=== PATIENT | female | born 1990 | race Caucasian/White ===

== ENCOUNTER 2017-12-28 20:55 | Emergency (ER) | payer SELFPAY ==
[2017-12-28 20:56] VITALS: BP 131/80; PULSE 107; RESP 16; TEMP 36.4; O2SAT 98; BMI 39.6
== END 2017-12-28 21:25 | disposition left against medical advice (07) ==
LOC: ED 21:21
PROVIDERS: Emergency Provider Emergency Medicine
DX: R69 Illness, unspecified (principal)

== ENCOUNTER → 2020-11-07 11:19 | Outpatient (CLI) | payer OTHER, MEDICAID, SELFPAY ==
[2020-11-07 10:44] VITALS: BMI 39.6
[2020-11-07 12:37] LABS: Absolute Lymphocyte Count 1.66 X10^3/uL (0.83-4.51); Absolute Neutrophil Count 3.8 X10^3/uL (2.0-7.7); Basophil# 0.05 X10^3/uL; Basophil% 0.8 % (0-1); Eosinophil# 0.14 X10^3/uL; Eosinophils% 2.3 % (0-5); Hematocrit 43.7 % (37-47); Hemoglobin 14.4 g/dL (12.0-15.0); Lymphocyte # 1.66 X10^3/ul (0.83-4.51); Lymphocyte % 27.5 % (19-41); Mean Corpuscular Volume 106.3 fL (81-99); Mean Platelet Vol. 9.7 fl (6.2-12.0); Monocyte% 6.6 % (0-10); NRBC Flagged by Analyzer 0 % (0-5); Neutrophil # 3.77 X10^3/uL (2.7-7.7); Neutrophil % 62.5 % (47-70); Platelet Count 231 K/mm3 (150-450); RBC Distribution Width CV 12.4 % (11.6-14.6); RBC Distribution Width SD 48.9 fl (35.1-43.9); Red Blood Count 4.11 M/mm3 (4.2-5.4)
[2020-11-07 12:49] LABS: Hemoglobin A1c 6.1 % (3.8-5.6)
[2020-11-07 12:53] LABS: Vitamin B12 339 pg/mL (211-911)
[2020-11-07 13:42] LABS: ALB/GLOB Ratio 0.8 RATIO (0.9-2.4); AST(SGOT) 33 U/L (15-37); Alanine Aminotransfer ALT/SGPT 69 U/L (13-56); Albumin, Serum 3.5 g/dL (3.2-5.0); Alkaline Phosphatase 74 U/L (45-117); Anion Gap 6 (5-15); BUN 14 mg/dL (7-18); BUN/Creat Ratio 14.7 RATIO (10-20); Calcium,Total 8.9 mg/dL (8.5-10.1); Chloride 106 mmol/L (98-107); Cholesterol 188 mg/dL (200); Creatinine, Serum 0.95 mg/dL (0.55-1.02); EST Glomerular Filtration Rate 72 mL/min (>60); Est Glom Filt Rate - Afr Amer 87 mL/min (>60); Ferritin 148 ng/mL (8-252); Globulin 4.2 g/dL (2.2-4.2); Glucose 128 mg/dL (74-106); High Density Lipoprotein 48 mg/dL; Potassium 3.7 mmol/L (3.5-5.1); Protein, Total 7.7 g/dL (6.4-8.2); Sodium Level 138 mmol/L (136-145); T4 Free Direct 0.88 ng/dL (0.76-1.46); Thyroid Stim Hormone (TSH) 2.83 uIU/mL (0.358-3.74); Triglycerides 132 mg/dL; Very Low Density Lipoprotein 26 mg/dL (5-40)
[2020-11-08 07:27] LABS: Thyroid Peroxidase AB < 9 IU/mL (0-34)
== END ==
PROVIDERS: Referring Provider Internal Medicine Endocrinology, Diabetes & Metabolism; Visit Provider Internal Medicine Endocrinology, Diabetes & Metabolism
DX: E04.9 Nontoxic goiter, unspecified (principal); R20.2 Paresthesia of skin; Z86.2 Personal history of diseases of the blood and blood-forming organs and certain disorders involving the immune mechanism; Z86.32 Personal history of gestational diabetes
CPT/HCPCS: 36415; 80053; 80061; 82607; 82728; 83036; 84439; 84443; 85025; 86376

== ENCOUNTER 2023-05-06 22:07 | Emergency (ER) | payer SELFPAY ==
[2023-05-06 22:07] VITALS: BP 156/101; PULSE 111; RESP 18; TEMP 36.4; O2SAT 96; BMI 46.5
--- NOTE | 2023-05-06 22:26 | EDS_ITS ---
HPI HPI - GI History of Present Illness Chief Complaint: Abd Pain Informant: patient Narrative Narrative: 32-year-old female has had left upper quadrant pain radiating across her mid abdomen for the last couple days, this was the initial symptoms started gradually, followed by fevers up to 104, nausea, vomiting without bilious emesis or blood, and diarrhea but the vomiting has been worse. She thought she had stomach flu but then the pain became intense tonight, radiating into her low back but nonlateralizing. No urinary symptoms. No history of any abdominal surgeries. She states when she eats something it makes the pain more intense and then she has diarrhea and that everything seems to lessen. Right now things are less and the back is not bothering her currently. Has been urinating less, not more. No travel out of the region recently, no known sick contacts. [facility] Medical History Diabetes GERD (gastroesophageal reflux disease) Goiter High blood pressure History of anemia History of gestational diabetes IBS (irritable bowel syndrome) Metabolic syndrome Paresthesia PCOS (polycystic ovarian syndrome) Polycystic disease, ovaries Preeclampsia UTI (urinary tract infection) Home Medications Ranitidine [Zantac] 150 mg PO DAILY 10/13/16 [History Last Taken 10/17/16 20:00] calcium carbonate 500 mg calcium (1,250 mg) chewable tablet 500 mg PO BID 10/13/16 [History Last Taken 10/16/16] vits,calcium no.78-iron fumarate-folic acid 29 mg-1 mg tablet (Prenatabs FA) 1 tab PO DAILY 10/13/16 [History Last Taken 10/18/16] acetaminophen 500 mg tablet 500 - 1,000 mg PO Q6H PRN PRN Mild Pain (1-3) 10/14/16 [History Last Taken 10/17/16] Ibuprofen [Motrin] 800 mg PO TID PRN PRN Pain #30 tabs 10/21/16 [Rx Last Taken Unknown] labetalol 100 mg tablet 100 mg PO TID ##30 10/21/16 [Rx Last Taken Unknown] probio 5 PO 11/07/20 [History Last Taken Unknown] x factor vitamin PO 11/07/20 [History Last Taken Unknown] ondansetron 4 mg disintegrating tablet 8 mg (2 x 4 mg) PO Q8H PRN PRN Nausea #20 tabs 05/06/23 [Rx Last Taken Unknown] Allergy/AdvReac Type Severity Reaction Status Date / Time No Known Allergies Allergy Verified 05/06/23 22:07 Family History Other Autoimmune disease Cancer Graves disease Hypertension Thyroid disorder Social History Smoking Status: Never smoker alcohol intake: current alcohol intake frequency: a few times a week substance use type: does not use frequency: 1-2 times per week ROS ROS ED Constitutional Constitutional ED: Reports chills, fever(s) and malaise Eyes Eyes: Denies change in vision or diplopia ENT ENT ED: Denies rhinorrhea or sore throat Cardiovascular Cardiovascular: Denies chest pain or palpitations Respiratory/Chest Respiratory/Chest: Denies cough or dyspnea Gastrointestinal Gastrointestinal: Reports abdominal pain, diarrhea, nausea and vomiting; Denies hematemesis, hematochezia or melena Genitourinary Genitourinary ED: Denies dysuria, hematuria or urinary frequency Musculoskeletal Musculoskeletal: Reports back pain; Denies neck pain Integumentary Denies abscess or rash Neurologic Neurologic: Denies headache(s), paresthesias or weakness Psychiatric Psychiatric: Denies anxiety or suicidal thoughts EXAM Physical Exam Const Vital Signs: 05/06/23 22:07 Temperature 97.6 F L Temperature Source Temporal Pulse Rate 111 H Respiratory Rate 18 Blood Pressure 156/101 H Blood Pressure Mean 119 Pulse Ox 96 Positive well nourished, well developed and obese General Appearance ED: well developed and NAD Nutritional Appearance: obese HEENT Reports moist mucous membranes normocephalic and atraumatic Eyes PERRL and EOMs intact bilaterally Neck full ROM and supple Resp normal respiratory effort and clear to auscultation bilaterally Cardio regular rate, regular rhythm and no murmurs Rate: tachycardic GI non-distended GI Narrative: LUQ ttp, no guarding or rebound, otherwise abdomen benign Auscultation: normoactive bowel sounds Palpation: soft Back/Spine no CVA tenderness General Back: other FROM Extremity normal to inspection General Extremety ED: Negative for edema, pulses abnormal or tenderness General Extremity: Negative for edema or pulses abnormal Neuro oriented x3, CN's II-XII intact bilaterally and no sensory deficits noted Sensorium / Orientation: awake and alert Motor Exam: strength 5/5 throughout Skin no rashes or lesions noted and no wounds MDM MDM MDM Narrative Medical decision making narrative: Most likely has viral gastroenteritis, however other causes of left flank pain are in the differential diagnosis such as kidney stone, pyelonephritis although she does not have symptoms of urine infection nor CVA tenderness making this less likely, and abdominal myofascial strain causing the unilateral worse pain in the left. Stomach ulcer also in the differential. She has no symptoms of bleeding. Work-up is consistent with the absence of hemorrhage, and is negative ruling out ectopic . Her urine shows a trace of blood, negative for infection on my interpretation, positive for ketones indicating starvation ketosis. After IV fluids, Zofran, dicyclomine, and Maalox she is feeling better with regards to abdominal cramping which was diffuse, nausea, she still has the pain on the left side. I will give her Toradol I do not think she needs a CT scan at this time, and she is comfortable with getting that and discharge instructions with a prescription for Zofran and follow-up as needed. We discussed reasons to return. Lab Data Attestation: I reviewed the patient's lab results. Labs: Laboratory Results - last 24 hr 05/06/23 05/06/23 22:40 22:55 WBC 9.2 RBC 4.01 L Hgb 14.8 Hct 42.5 MCV 106.0 H MCH 36.9 H MCHC 34.8 RDW Std Deviation 48.4 H RDW Coeff of Deyvi 12.3 Plt Count 167 MPV 9.6 Immature Gran % (Auto) 0.200 Neut % (Auto) 87.3 H Lymph % (Auto) 5.5 L Morton % (Auto) 6.7 Eos % (Auto) 0.0 Baso % (Auto) 0.3 Absolute Neuts (auto) 8.0 H Absolute Lymphs (auto) 0.51 L Nucleated RBC % 0 Differential Comment SCANNED Sodium 131 L Potassium 3.6 Chloride 104 Carbon Dioxide 23.0 Anion Gap 4 L BUN 12 Creatinine 0.90 Estim Creat Clear Calc 79.25 Est GFR (MDRD) Af Amer 92 Est GFR (MDRD) Non-Af 76 BUN/Creatinine Ratio 13.3 Glucose 133 H Calcium 8.6 Serum , Qual NEGATIVE Urine Color Yellow Urine Clarity Clear Urine pH 5.0 Ur Specific Jud 1.020 Urine Protein 30 H Urine Glucose (UA) Normal Urine Ketones 150 A* Urine Occult Blood 10 H Urine Nitrite Negative Urine Bilirubin 1 H Urine Urobilinogen 1 H Ur Leukocyte Esterase 25 H Urine RBC 0-5 SEEN Urine WBC 0 SEEN Ur Squamous Epith Cells 10-25 SEEN Urine Bacteria 0 SEEN Urine Mucus 1+ Discharge Plan Triage Chief Complaint: Abd Pain ED Provider: Wily Domingo Dx/Rx/DC Orders Clinical Impression: Left upper quadrant abdominal pain, Gastroenteritis Instructions: Abdominal Pain, ED Gastroenteritis, Viral (Adult) Prescriptions: New ondansetron [ondansetron] 4 mg tablet,disintegrating 8 mg PO Q8H PRN PRN (Reason: Nausea) Qty: 20 0RF No Action x factor vitamin PO probio 5 PO calcium carbonate 500 MG tablet,chewable 500 mg PO BID vit,[id number] [Prenatabs FA] 1 TABLET tablet 1 tab PO DAILY Ranitidine [Zantac] 150 MG tablet 150 mg PO DAILY acetaminophen 500 MG tablet 500 - 1,000 mg PO Q6H PRN PRN (Reason: Mild Pain (-09/17)) Ibuprofen [Motrin] 800 MG tablet 800 mg PO TID PRN PRN (Reason: Pain) Qty: 30 0RF Rx Instructions: labetalol 100 MG tablet 100 mg PO TID Qty: 30 0RF Primary Care Provider: Care Physician,No Primary Referrals: Care Physician,No Primary [Primary Care Provider] - Doctor,Your [Non-Staff] - 3-5 Days if not improving Disposition Disposition: Home, Self Care
[2023-05-06] MEDS: 0.9% Normal Saline (1000mL) 1,000 ML 1000 ML IV (22:50)
[2023-05-06] MEDS: Ondansetron 4 MG/2 ML Vial IV (22:50)
[2023-05-06] MEDS: Mag Hydrox/Al Hydrox/Simeth 30 ML UDC PO (22:51)
[2023-05-06] MEDS: Dicyclomine 10 MG Capsule 20 MG PO (22:52)
[2023-05-06 22:59] LABS: Absolute Lymphocyte Count 0.51 X10^3/uL (0.83-4.51); Basophil# 0.03 X10^3/uL; Basophil% 0.3 % (0-1); Hematocrit 42.5 % (37-47); Hemoglobin 14.8 g/dL (12.0-15.0); Lymphocyte # 0.51 X10^3/ul (0.83-4.51); Lymphocyte % 5.5 % (19-41); Mean Corp Hgb Conc 34.8 g/dL (32-36); Mean Corpuscular Hgb 36.9 pg (27.0-32.0); Mean Platelet Vol. 9.6 fl (6.2-12.0); Monocyte# 0.62 X10^3/uL; Monocyte% 6.7 % (0-10); NRBC Flagged by Analyzer 0 % (0-5); Neutrophil # 8.01 X10^3/uL (2.7-7.7); Neutrophil % 87.3 % (47-70); POSITIVE DIFFERENTIAL YES; Platelet Count 167 K/mm3 (150-450); RBC Distribution Width CV 12.3 % (11.6-14.6); RBC Distribution Width SD 48.4 fl (35.1-43.9); Red Blood Count 4.01 M/mm3 (4.2-5.4); White Blood Count 9.2 K/mm3 (4.4-11.0)
[2023-05-06 23:04] LABS: Bacteria 0 SEEN /hpf (None Seen); White Blood Cells 0 SEEN /hpf (0-5)
[2023-05-06 23:14] LABS: Differential Indicated SCAN CRITERIA MET
[2023-05-06 23:15] LABS: Internal QC Validated? YES +Cl - CLEAR BKGD; Pregnancy, Serum, hCG Quali. NEGATIVE Negative
[2023-05-06 23:16] LABS: Color, Urine Yellow (Yellow); Glucose, Dipstick Normal (Normal); Leukocyte Esterase-Dipstick 25 /ul (Negative); Nitrite-Dipstick Negative (Negative); Occult Blood-Urine 10 /ul (Negative); Protein-Dipstick 30 mg/dl (Negative); Urine Clarity Clear (Clear); Urine Urobilinogen 1 mg/dl (Normal)
[2023-05-06 23:17] LABS: Anion Gap 4 (5-15); BUN 12 mg/dL (7-18); BUN/Creat Ratio 13.3 RATIO (10-20); Calcium,Total 8.6 mg/dL (8.5-10.1); Chloride 104 mmol/L (98-107); EST Glomerular Filtration Rate 76 mL/min (>60); Est Glom Filt Rate - Afr Amer 92 mL/min (>60); Estimated Creatinine Clearance 79.25 ml/min; Glucose 133 mg/dL (74-106); Potassium 3.6 mmol/L (3.5-5.1); Sodium Level 131 mmol/L (136-145)
[2023-05-06 23:21] LABS: Differential Comment SCANNED
[2023-05-06 23:22] LABS: Ketone-Dipstick 150 mg/dl (Negative); Urine Bilirubin Dipstick 1 mg/dL (Negative)
[2023-05-06 23:23] LABS: Squamous Epithelial Cells - UA 10-25 SEEN /hpf (5-10)
[2023-05-06 23:24] LABS: Mucous, Urine 1+ /hpf (<or=2+); Red Blood Cells-Urine 0-5 SEEN /hpf (0-5)
[2023-05-06] MEDS: Ketorolac 30 MG/ML Syringe IV (23:51)
== END 2023-05-07 00:08 | disposition home or self-care (01) ==
PROVIDERS: Emergency Provider Emergency Medicine; Visit Provider Emergency Medicine
DX: R10.12 Left upper quadrant pain (principal); K52.9 Noninfective gastroenteritis and colitis, unspecified
CPT/HCPCS: 80048; 81001; 84703; 85025; 96361; 96374; 96375; 99283; J2405

== ENCOUNTER 2023-05-11 01:04 | Emergency (ER) | payer MEDICAID, SELFPAY ==
[2023-05-11 01:05] VITALS: BP 142/90; PULSE 115; RESP 20; TEMP 36.5; O2SAT 94; BMI 46.5
--- NOTE | 2023-05-11 01:26 | CT_ITS ---
EXAM: CT Abdomen And Pelvis W/ Contrast Injection HISTORY: left sided abd pain TECHNIQUE: Routine protocol CT abdomen pelvis. IV Contrast: IV 100mL Isovue-370 . Oral Contrast: without. Sagittal and coronal images were reconstructed. RADIATION DOSAGE (If Supplied By Facility): CTDIvol = ( 22.07 ) mGy, DLP = ( 1393.34 ) mGycm Individualized dose optimization techniques were used for this CT. COMPARISON: None. LIMITATIONS: None. FINDINGS: LOWER CHEST: Dependent atelectasis in the lung bases greater on the left. Calcified granuloma left lower lobe. Pneumomediastinum with small amount of air about the distal esophagus and pericardial. LIVER: Enlarged with fatty infiltration. GALLBLADDER/BILE DUCTS: Gallstone in the gallbladder. PANCREAS: Unremarkable. SPLEEN: Unremarkable. ADRENAL GLANDS: Unremarkable. KIDNEYS / URETERS: Unremarkable. BOWEL / MESENTERY: Wall thickening of the sigmoid colon with adjacent stranding, and numerous small foci of adjacent extraluminal air. No localized collection or abscess. Moderate amount of free air in the upper abdomen mainly about the stomach, with no associated inflammatory changes or definite gastric wall thickening in the region. Mildly dilated small bowel in the left midabdomen with prominent folds. No bowel obstruction. APPENDIX: Not identified. PERITONEUM: Moderate amount of free air with numerous small foci about the sigmoid colon, and free air in the upper abdomen adjacent to the stomach, and along the left paracolic gutter. No free fluid. VESSELS: Abdominal aorta is normal caliber. RETROPERITONEUM: Pneumonia retroperitoneum with air along the left psoas muscle, left anterior and posterior pararenal space. REPRODUCTIVE ORGANS: Intrauterine device in place within the uterus. BLADDER: Minimally distended. ABDOMINAL WALL: Small umbilical hernia contains only fat, no bowel. BONES: No acute abnormality. OTHER: None. CT/Abdomen/Pelvis W IV Cont ONLY IMPRESSION: Pneumoperitoneum and pneumoretroperitoneum with most likely site of perforation sigmoid colon suspected diverticulitis. Small amount of pneumomediastinum secondary tracking from the abdomen. Mildly dilated small bowel in the left abdomen likely focal ileus. Cholelithiasis. Hepatomegaly with steatosis. N.B. : The above Results were Read Back by Bety Ferreira MD to Rob Hall MD, and understanding confirmed on 05/11/2023 02:42:00 (ET). Electronically Signed: Bety Ferreira MD at 2:42 EDT ,
--- NOTE | 2023-05-11 01:27 | EDS_ITS ---
HPI HPI - GI History of Present Illness Chief Complaint: Abd Pain Detail of Chief Complaint: Left-sided abdominal pain since last Tuesday. Informant: patient Abdominal Pain/Flank Pain Onset: Days Context: Gradual Onset Timing: Continuous Location: Left Flank Current Severity: Moderate Maximum Severity: Moderate Worsened by: Car ride Relieved by: Nothing Nausea/Vomiting/Emesis GI Symptom: Positive for Nausea Severity: Mild Diarrhea/Melena/Hematochezia GI Symptom: Positive for Diarrhea and - (Started with diarrhea now constipated with no BM for the last 4 days.) Onset: Days Stool Quality: Positive for Loose Severity: Mild Associated Symptoms Associated Symptoms: Negative for Dysuria, Frequency, Hematuria or Urgency Narrative Narrative: 32-year-old female history of diabetes, reflux, anemia irritable bowel and polycystic ovarian syndrome. Denies any prior abdominal surgeries. She was seen in emergency department on 1026 and had negative labs and urinalysis at that time. test was negative. States he had left-sided abdominal pain since that time. Associated nausea. Initially had diarrhea and now she has had no bowel movement since Tuesday. Says she has had fevers that were as high as 104 but they have resolved in the last 24 to 36 hours. Denies any dysuria. No vaginal bleeding or discharge. No abdominal trauma. No history of kidney stone. Prior similar symptoms: No Recent Illness/Hospitalization: No PFSH PFSH Medical History Diabetes GERD (gastroesophageal reflux disease) Goiter High blood pressure History of anemia History of gestational diabetes IBS (irritable bowel syndrome) Insulin resistance Metabolic syndrome Paresthesia PCOS (polycystic ovarian syndrome) Polycystic disease, ovaries Preeclampsia UTI (urinary tract infection) Home Medications acetaminophen 500 mg tablet 500 - 1,000 mg PO Q6H PRN PRN Mild Pain (1-3/) 10/14/16 [History Last Taken 10/17/16] Ibuprofen [Motrin] 800 mg PO TID PRN PRN Pain #30 tabs 10/21/16 [Rx Last Taken Unknown] ondansetron 4 mg disintegrating tablet 8 mg (2 x 4 mg) PO Q8H PRN PRN Nausea #20 tabs 05/06/23 [Rx Last Taken Unknown] Allergy/AdvReac Type Severity Reaction Status Date / Time No Known Allergies Allergy Verified 05/11/23 01:15 Family History Other Autoimmune disease Cancer Graves disease Hypertension Thyroid disorder Social History Smoking Status: Current some day smoker tobacco type: cigarettes alcohol intake: current alcohol intake frequency: a few times a week substance use type: does not use frequency: 1-2 times per week ROS ROS ED ROS Narrative Nausea. Diarrhea now constipation. Fever. No dysuria. Review of Systems ROS Unobtainable: Denies due to encephalopathy Constitutional Constitutional ED: Reports fever(s); Denies chills ENT ENT ED: Denies ear pain Cardiovascular Cardiovascular: Denies chest pain Respiratory/Chest Respiratory/Chest: Denies cough Gastrointestinal Gastrointestinal: Reports abdominal pain, constipation, diarrhea and nausea; Denies melena or vomiting Genitourinary Genitourinary ED: Denies dysuria or hematuria Musculoskeletal Musculoskeletal: Denies arthralgias Integumentary Denies abscess Neurologic Neurologic: Denies headache(s) Psychiatric Psychiatric: Denies anxiety Endocrine Endocrinology: Denies polydipsia Hematologic/Lymphatic Hematologic/Lymphatic: Denies easy bleeding Allergic/Immunologic Allergic/Immunologic ED: Denies mouth swelling, tongue swelling or urticaria EXAM Physical Exam Narrative Exam Narrative: Well-appearing 32-year-old female. Vital signs are stable afebrile. She does not look septic toxic. She is in no distress. Family member present in room. H EENT exam unremarkable except dry mucous membranes. Neck nontender no lymphadenopathy. Lungs clear to auscultation. Heart regular rhythm rate about 110 no murmur. Abdomen soft, nondistended normal bowel sounds no peritoneal signs. Tender in left upper and lower quadrants. No hernia or mass. No signs of trauma. Right upper right lower quadrant unremarkable. Back nontender. No CVA tenderness. Moving all 4 extremities. Nontender no edema. Neurologically she is awake and alert with no focal motor deficits. Const Vital Signs: 05/11/23 01:05 05/11/23 03:54 05/11/23 04:20 Temperature 97.7 F L Temperature Source Oral Pulse Rate 115 H 113 H Respiratory Rate 20 H 22 H Blood Pressure 142/90 H 118/78 Blood Pressure Mean 107 91 Pulse Ox 94 95 89 Oxygen Delivery Method Room Air Room Air Room Air Oxygen Flow Rate (L/min) 2 Positive well nourished and well developed; Negative for cachectic, contractures or unkempt General Appearance ED: well developed and NAD; Negative for unkempt, cachectic, contractures or pallor Nutritional Appearance: Negative for cachectic HEENT Reports dry mucous membranes; Denies moist mucous membranes normocephalic and atraumatic; Negative for trauma or tenderness Mouth ED: Yes dry mucous membranes Mouth: dry mucous membranes Eyes PERRL and EOMs intact bilaterally General Eye ED: Negative for pale conjunctiva or scleral icterus Neck no lymphadenopathy, supple and no JVD General: Negative for tenderness Carotids: Negative for other Lymph Lymphatic: Negative for other Resp normal respiratory effort and clear to auscultation bilaterally Effort and Inspection: Negative for respiratory distress Auscultation: Negative for rales, rhonchi or wheezes Cardio regular rhythm, S1 normal heart sound, S2 normal heart sound and no murmurs; Negative for regular rate Rate: tachycardic; Negative for bradycardia Rhythm: Negative for abnormal rhythm GI non-distended and no masses; Negative for non-tender Inspection: Negative for abdominal distention Auscultation: normoactive bowel sounds Palpation: soft and tender; Negative for guarding, rigid, hepatomegaly, splenomegaly, hernia, mass, pulsatile mass or rebound tenderness present Back/Spine no CVA tenderness General Back: Negative for CVA tenderness Cervical Spine: Negative for cervical spine tenderness Thoracic Spine / Upper Back: Negative for thoracic spinal tenderness Lumbar Spine / Lower Back: Negative for lumbar spinal tenderness Coccyx: Negative for other Extremity full ROM General Extremety ED: Negative for edema or tenderness General Extremity: Negative for edema Neuro CN's II-XII intact bilaterally and moves all extremities Sensorium / Orientation: alert, oriented to person, oriented to place and oriented to time; Negative for orientation impaired, confused or lethargic Motor Exam: strength 5/5 throughout Psych mental status grossly normal and thought process normal Appearance: Negative for unkempt Attitude: No agitated Mood & Affect: Negative for depressed, anxious or tearful Skin no wounds General Skin Exam: Negative for jaundice or pallor Lesions: no lesions Rashes: no rashes Trauma: Negative for abrasion Nails: Negative for discolored MDM MDM MDM Narrative Medical decision making narrative: 32-year-old female left-sided abdominal pain. Recent labs were unremarkable. This could be from irritable bowel. Could be from constipation. Diverticulitis a possibility. UTI or kidney stone a possibility of her last urinalysis several days ago was negative. Recent negative test. CAT scan labs being obtained. Treated with IV fluids for dehydration. Times a liter. Morphine for pain and Zofran for nausea. Repeat exam at 2:30 AM patient is feeling improved with the IV pain medication. We went over her test results and the CAT scan showing free air which I suspect is secondary to diverticulitis. General surgery is on page. Radiologist did just call me at 2:40 AM and she agrees there is free air both pneumo and retroperitoneum. Inflammation of the sigmoid colon consistent with a sigmoid diverticulitis perforation. I have written for the patient to be started on IV Zosyn. Also a second IV and a second liter of fluid due to her acute kidney injury. I spoke to our general surgeon on-call. She reviewed patient's CAT scan and was concerned that this may need colorectal specialist. Thought it was in the patient's best interest to be transferred to a larger facility. We attempted both hospitals in [place] they are currently full and do not have any bed availability. Then spoke to [facility] and one of the colon rectal specialist. They will accept the patient to the surgical intensive care unit. We are awaiting a bed. Patient is doing well at this time. She has received a second dose of morphine and Zofran. And her and her are comfortable with the current plan. Patient doing well at 4:30 AM. Clinic is excepted patient has a bed in the s urgical intensive care unit. We are awaiting ground transport which may take another 2 to 3 hours. History & Record Review Discussion w/independent historian: Patient Additional record(s) reviewed:: Prior inpatient record, Prior outpatient record, Prior ED visit and Prior labs Lab Data Attestation: I reviewed the patient's lab results. Lab results narrative: CBC shows elevated white count of 13.7. H&H of 15.1 and 43. Platelets iron 36,000. 7% bands. Electrolytes show sodium 133. Potassium 3.2. Elevated anion gap 17. BUN and creatinine of 58 and 3.94 consistent with acute kidney injury and dehydration. Glucose 133. Liver enzymes showed alk phos of 173 otherwise unremarkable lipase is normal at 35. Labs: Laboratory Results - last 24 hr 05/11/23 01:16 WBC 13.7 H RBC 4.15 L Hgb 15.1 H Hct 43.4 MCV 104.6 H MCH 36.4 H MCHC 34.8 RDW Std Deviation 50.0 H RDW Coeff of Deyvi 13.0 Plt Count 136 L MPV 10.6 Neut % (Auto) Not Reportable Absolute Neuts (auto) 12.5 H Absolute Lymphs (auto) 0.27 L Total Counted 100 Neutrophils % (Manual) 84 H Band Neutrophils % 7 H Lymphocytes % (Manual) 2 L Monocytes % (Manual) 2 Eosinophils % (Manual) 1 Myelocytes % 4 H Diff Path Review May foll Platelet Estimate SLT DEC Macrocytosis 1+ Sodium 133 L Potassium 3.2 L Chloride 100 Carbon Dioxide 16.0 L Anion Gap 17 H BUN 58 H Creatinine 3.94 H Estim Creat Clear Calc 18.10 Est GFR (MDRD) Af Amer 17 L Est GFR (MDRD) Non-Af 14 L BUN/Creatinine Ratio 14.7 Glucose 133 H Calcium 8.8 Total Bilirubin 0.80 AST 76 H ALT 46 Alkaline Phosphatase 173 H Total Protein 7.0 Albumin 1.9 L Globulin 5.1 H Albumin/Globulin Ratio 0.4 L Lipase 35 Radiography Diagnostic Testing: Clinical Impression(s) from Imaging Studies Abdomen/Pelvis CT 05/11/23 01:26 IMPRESSION: Pneumoperitoneum and pneumoretroperitoneum with most likely site of perforation sigmoid colon suspected diverticulitis. Small amount of pneumomediastinum secondary tracking from the abdomen. Mildly dilated small bowel in the left abdomen likely focal ileus. Cholelithiasis. Hepatomegaly with steatosis. N.B. : The above Results were Read Back by Bety Ferreira MD to Rob Hall MD, and understanding confirmed on 05/11/2023 02:42:00 (ET). Electronically Signed: Bety Ferreira MD at 2:42 EDT , ADDENDUM: 05/11/23 0249 IMPRESSION: Pneumoperitoneum and pneumoretroperitoneum with most likely site of perforation sigmoid colon suspected diverticulitis. Small amount of pneumomediastinum secondary tracking from the abdomen. Mildly dilated small bowel in the left abdomen likely focal ileus. Cholelithiasis. Hepatomegaly with steatosis. N.B. : The above Results were Read Back by Bety Ferreira MD to Rob Hall MD, and understanding confirmed on 05/11/2023 02:42:00 (ET). Electronically Signed: Bety Ferreira MD at 2:42 EDT , Critical Care Time Critical Care Time: Yes Critical care time (excluding procedures): 30-74 minutes, Including time spent:, Discussing w/Patient &/or Family/Director Trial, Discussing w/Consultants, Arranging Admission or Transfer, Performing Direct Patient Care at Bedside and - (35 min) Discharge Plan Triage Chief Complaint: Abd Pain ED Provider: Rob Hall Dx/Rx/DC Orders Clinical Impression: Abdominal pain, Acute kidney injury, Acute dehydration, Perforated bowel, Leukocytosis, History of diabetes mellitus, Perforation of sigmoid colon due to diverticulitis, Metabolic acidosis Prescriptions: No Action acetaminophen 500 MG tablet 500 - 1,000 mg PO Q6H PRN PRN (Reason: Mild Pain (1-3/10)) Ibuprofen [Motrin] 800 MG tablet 800 mg PO TID PRN PRN (Reason: Pain) Qty: 30 0RF Rx Instructions: ondansetron [ondansetron] 4 mg tablet,disintegrating 8 mg PO Q8H PRN PRN (Reason: Nausea) Qty: 20 0RF Primary Care Provider: Care Physician,No Primary Referrals: Care Physician,No Primary [Primary Care Provider] - Disposition Disposition: [facility]
[2023-05-11 01:32] LABS: Hematocrit 43.4 % (37-47); Hemoglobin 15.1 g/dL (12.0-15.0); Mean Corp Hgb Conc 34.8 g/dL (32-36); Mean Corpuscular Hgb 36.4 pg (27.0-32.0); Mean Corpuscular Volume 104.6 fL (81-99); Mean Platelet Vol. 10.6 fl (6.2-12.0); POSITIVE COUNT YES; POSITIVE MORPHOLOGY YES; Platelet Count 136 K/mm3 (150-450); Red Blood Count 4.15 M/mm3 (4.2-5.4); White Blood Count 13.7 K/mm3 (4.4-11.0)
[2023-05-11 01:35] LABS: Differential Indicated MANUAL DIFF
[2023-05-11 01:44] LABS: Macrocytosis 1+; Platelet Estimate SLT DEC (ADEQ)
[2023-05-11] MEDS: 0.9% Normal Saline (1000mL) 1,000 ML 1000 ML IV (01:54)
[2023-05-11] MEDS: Ondansetron 4 MG/2 ML Vial IV ×2 (01:55→04:16)
[2023-05-11] MEDS: Morphine 4 MG/ML Syringe IV (01:55)
[2023-05-11 02:02] LABS: Absolute Lymphocyte Count 0.27 X10^3/uL (0.83-4.51); Absolute Neutrophil Count 12.5 X10^3/uL (2.0-7.7); Eosinophil 1 % (0-5); Lymphocyte 2 % (19-41); Monocyte 2 % (0-10); Myelocyte 4 % (0-0); Neutrophil-Band 7 % (0-5); Neutrophil-Segmented 84 % (47-70); Total Cells Counted 100 (MANUAL DIFF)
[2023-05-11 02:07] LABS: ALB/GLOB Ratio 0.4 RATIO (0.9-2.4); AST(SGOT) 76 U/L (15-37); Alanine Aminotransfer ALT/SGPT 46 U/L (13-56); Albumin, Serum 1.9 g/dL (3.2-5.0); Alkaline Phosphatase 173 U/L (45-117); Anion Gap 17 (5-15); BUN 58 mg/dL (7-18); BUN/Creat Ratio 14.7 RATIO (10-20); Calcium,Total 8.8 mg/dL (8.5-10.1); Chloride 100 mmol/L (98-107); Creatinine, Serum 3.94 mg/dL (0.55-1.02); EST Glomerular Filtration Rate 14 mL/min (>60); Est Glom Filt Rate - Afr Amer 17 mL/min (>60); Globulin 5.1 g/dL (2.2-4.2); Glucose 133 mg/dL (74-106); Lipase 35 U/L (13-75); Potassium 3.2 mmol/L (3.5-5.1); Sodium Level 133 mmol/L (136-145)
[2023-05-11] MEDS: 0.9% Normal Saline (1000mL) 1,000 ML 999 ML IV (02:44)
[2023-05-11] MEDS: Piperacil/Tazobactam 4.5 GM in 0.9% Normal Saline (100mL MB+) 100 ML IV (02:45)
--- NOTE | 2023-05-11 03:01 | ED.RN ---
[facility] called for transfer they are wait listing patients
--- NOTE | 2023-05-11 03:01 | ED.RN ---
[facility] called they are wait listing patients
--- NOTE | 2023-05-11 03:01 | ED.RN ---
[facility] called for transfer at this time. They will call back
[2023-05-11 03:54] VITALS: BP 118/78; PULSE 113; RESP 22; O2SAT 95
[2023-05-11] MEDS: morphine 8 MG/ML Syringe 6 MG IV (04:01)
[2023-05-11 04:20] VITALS: O2SAT 89
[2023-05-11 06:07] VITALS: BP 112/72; PULSE 107; RESP 18; O2SAT 95
[2023-05-11 06:11] VITALS: BP 112/72; PULSE 107; RESP 18; O2SAT 95
[2023-05-11 13:42] LABS: Pathologist Review Reviewed
== END 2023-05-11 07:07 | disposition short-term general hospital (02) ==
PROVIDERS: Emergency Provider Emergency Medicine; Visit Provider Emergency Medicine
DX: R10.9 Unspecified abdominal pain (principal); N17.9 Acute kidney failure, unspecified; E11.9 Type 2 diabetes mellitus without complications; E86.0 Dehydration; K57.20 Diverticulitis of large intestine with perforation and abscess without bleeding; D72.829 Elevated white blood cell count, unspecified; E87.20 Acidosis, unspecified; F17.210 Nicotine dependence, cigarettes, uncomplicated
CPT/HCPCS: 74177; 80053; 83690; 85025; 96361; 96365; 96375; 96376; 99284; J7030; Q9967; A4216; J2405

== ENCOUNTER → 2023-07-12 | Outpatient (CLI) | payer MEDICAID, SELFPAY ==
--- NOTE | 2023-07-12 13:33 | VDLE_ITS ---
Reason For Study: RLE Swelling RIGHT LEFT GSV is normal. CFV is compressible, spontaneous, phasic, Acute deep vein thrombosis is noted in the competent, and demonstrates normal CFV. It is PARTIALLY COMPRESSIBLE with augmentation. continuous flow noted in the vessel. Acute deep vein thrombosis is noted in the FV. It is dilated and NONCOMPRESSIBLE. Acute deep vein thrombosis is noted in the POP V. It is dilated and NONCOMPRESSIBLE. Acute deep vein thrombosis is noted in the T/P Trunk. It is dilated and NONCOMPRESSIBLE. Acute deep vein thrombosis is noted in the Gastrocnemius V. It is dilated and NONCOMPRESSIBLE. Acute deep vein thrombosis is noted in the PTV. It is dilated and NONCOMPRESSIBLE. Acute deep vein thrombosis is noted in the Per V. It is dilated and NONCOMPRESSIBLE. Acute deep vein thrombosis is noted in the right soleus vein. Procedure This is a venous duplex using B-mode, color flow and spectral Doppler. Exam performed in department. The exam was diagnostic. A preliminary report was called and/or faxed to Dr. Quintero. VL/Venous Duplex US, Unilateral Interpretation Summary Acute deep vein thrombosis is noted in the right common femoral vein, femoral v ein, popliteal vein, tibioperoneal trunk vein, gastrocnemius vein, posterior tibial vein, peroneal v ein, soleus vein Ordering Physician: Trang Quintero Referring Physician: Trang Quintero Performed By: Miguel Angel Crystal, RVT
== END | disposition home or self-care (01) ==
LOC: CVS 13:33
PROVIDERS: PCP Internal Medicine; Referring Provider Internal Medicine; Visit Provider Internal Medicine
DX: M79.89 Other specified soft tissue disorders (principal)
CPT/HCPCS: 93971

== ENCOUNTER 2023-07-25 15:49 | Inpatient (IN) | payer MEDICAID, SELFPAY ==
[2023-07-25 08:34] VITALS: BMI 40.0
[2023-07-25 15:04] VITALS: BMI 40.0
[2023-07-25 17:11] LABS: Anion Gap 8 (5-15); BUN 20 mg/dL (7-18); BUN/Creat Ratio 18.2 RATIO (10-20); Calcium,Total 9.7 mg/dL (8.5-10.1); Chloride 111 mmol/L (98-107); EST Glomerular Filtration Rate 60 mL/min (>60); Est Glom Filt Rate - Afr Amer 73 mL/min (>60); Estimated Creatinine Clearance 87.75 ml/min; Glucose 97 mg/dL (74-106); Potassium 3.8 mmol/L (3.5-5.1); Sodium Level 141 mmol/L (136-145)
--- NOTE | 2023-07-25 17:20 | PCM.HP.STD ---
HPI - General General Date of Admission: 07/25/23 HPI Narrative OMA SPAIN, is a 33 F who presents with extensive acute right lower extremity DVT after prolonged hospitalization for diverticulitis requiring ostomy. Given her young age and extent of thrombus she is felt to be a good candidate for thrombectomy. She is admitted now for bridging with heparin for procedure 07/26. Her edema has improved some since being seen in office. [facility] Medical History Diabetes GERD (gastroesophageal reflux disease) Goiter High blood pressure History of anemia History of gestational diabetes IBS (irritable bowel syndrome) Insulin resistance Metabolic syndrome Paresthesia PCOS (polycystic ovarian syndrome) Polycystic disease, ovaries Preeclampsia UTI (urinary tract infection) Home Medications acetaminophen 500 mg tablet 500 - 1,000 mg PO Q6H PRN PRN Mild Pain (1-09/17) 10/14/16 [History Last Taken 10/17/16] Ibuprofen [Motrin] 800 mg PO TID PRN PRN Pain #30 tabs 10/21/16 [Rx Last Taken Unknown] ondansetron 4 mg disintegrating tablet 8 mg (2 x 4 mg) PO Q8H PRN PRN Nausea #20 tabs 05/06/23 [Rx Last Taken Unknown] apixaban 5 mg tablet (Eliquis) 5 mg PO BID #60 tabs 07/14/23 [Rx Last Taken Unknown] quetiapine 25 mg tablet (Seroquel) 25 mg PO QHS 07/14/23 [History Last Taken Unknown] docusate sodium 100 mg capsule 100 mg PO BID constipation 07/25/23 [History Last Taken 07/25/23] melatonin 3 mg tablet 3 mg PO QHS insomni 07/25/23 [History Last Taken 07/24/23] polyethylene glycol 3350 17 gram/dose oral powder (Powderlax) 17 g PO BID constipation 07/25/23 [History Last Taken 07/25/23] Allergy/AdvReac Type Severity Reaction Status Date / Time No Known Allergies Allergy Verified 07/14/23 11:26 Family History Other Autoimmune disease Cancer Graves disease Hypertension Thyroid disorder Surgical History History of colon surgery (~05/2023) Social History Smoking Status: Never smoker alcohol intake: former details: drank a couple weeks a week substance use type: does not use frequency: 1-2 times per week ROS Constitutional Constitutional: Denies chills, fever(s), frequent falls, lethargy or weakness Eyes Eyes: Denies blind spots, change in vision or loss of vision ENT HEENT: Denies bleeding gums, hoarseness or sore throat Cardiovascular Cardiovascular: Denies abdominal pain, bluish discoloration of hand/feet, chest pain with activity, claudication, cold extremities, cyanosis, dyspnea on exertion, erythema on extremities, irregular heart rhythm, leg edema, leg ulcers, numbness in extremities or weakness in extremities Respiratory/Chest Respiratory/Chest: Denies cough, excessive phlegm production, shortness of breath at rest, shortness of breath with exertion or wheezing Gastrointestinal Gastrointestinal: Denies anorexia, change in stool character, constipation, diarrhea, melena or rectal bleeding Genitourinary Genitourinary: Denies dysuria or hematuria Musculoskeletal Musculoskeletal: Denies abnormal gait Integumentary Integumentary: Reports other Details: ; Denies erythema, non-healing lesions or wounds Neurologic Neurologic: Denies abnormal speech, focal weakness, headache(s), loss of vision, numbness, paresthesias or sensory deficit Hematologic/Lymphatic Hematologic/Lymphatic: Denies easy bleeding, easy bruising or lymphadenopathy Vital Signs Vital Signs Vital Signs: Weight Weight: 240 lb 11.2 oz Body Mass Index (BMI) 40.0 Physical Exam Const alert, oriented x3, no apparent distress and healthy appearing General Appearance: cooperative; Negative for combative or lethargic Orientation / Consciousness: awake Exam Limitations: no limitations HEENT Head and Scalp: normocephalic and atraumatic Eyes EOMs intact bilaterally General Eye: normal appearance of both eyes Neck full ROM, no lymphadenopathy and thyroid normal General: trachea midline; Negative for lymphadenopathy or tenderness Thyroid: thyroid normal Resp normal respiratory effort and no use of accessory muscles Effort and Inspection: Negative for labored, stridor or audible wheezes Cardio regular rate and regular rhythm Back/Spine Cervical Spine: cervical ROM normal Extremity full ROM, normal capillary refill and no clubbing, cyanosis or edema Skin no rashes or lesions noted and no wounds Neuro oriented x3, CN's II-XII intact bilaterally, no focal motor deficits and no sensory deficits noted Psych thought process normal, cooperative, affect normal, speech normal and activity/motor behavior normal Results Lab / Micro Data 07/25/23 16:20 Labs: Laboratory Results - last 24 hr 07/25/23 16:20: Sodium 141, Potassium 3.8, Chloride 111 H, Carbon Dioxide 22.0, Anion Gap 8, BUN 20 H, Creatinine 1.10 H, Estim Creat Clear Calc 87.75, Est GFR (MDRD) Af Amer 73, Est GFR (MDRD) Non-Af 60, BUN/Creatinine Ratio 18.2, Glucose 97, Calcium 9.7 Assessment & Plan Assessment/Plan (1) Deep vein thrombosis (DVT) of right lower extremity: QUALIFIERS: Affected thrombotic vein of extremity: femoral Chronicity: acute Qualified Code(s): I82.411 - Acute embolism and thrombosis of right femoral vein PLAN: -heparin drip -venogram tomorrow
[2023-07-25 17:26] LABS: International Normalized Ratio 1.4
[2023-07-25 17:44] LABS: Partial Thromboplast Time 39.4 Seconds (24.1-36.2)
[2023-07-25] MEDS: 0.9% Normal Saline (1000mL) 1,000 ML 15 ML IV (18:03)
[2023-07-25] MEDS: HEPARIN/D5w 25,000 UNITS 25,000 UNITS/250 ML IV.SOLN. 15 UNITS CONT INF (18:06)
[2023-07-25 18:17] VITALS: BP 146/106; PULSE 95; RESP 16; TEMP 36.6; O2SAT 97
[2023-07-25 21:05] VITALS: RESP 18; O2SAT 97
[2023-07-25 22:00] VITALS: BP 125/83; PULSE 101; RESP 16; TEMP 36.4; O2SAT 98
[2023-07-25] MEDS: MELATONIN 3 MG TABLET PO (22:05)
[2023-07-25] MEDS: Polyethylene Glycol 3350 17 GM PACKET PO (22:05)
[2023-07-25] MEDS: Docusate Sodium 100 MG Capsule PO (22:05)
[2023-07-25] MEDS: QUEtiapine 25 MG Tablet PO (22:05)
[2023-07-25 22:40] VITALS: O2SAT 97
[2023-07-26] VITALS (12 sets, daily range): BP systolic 121–148; BP diastolic 77–101; PULSE 71–103; RESP 16–18; TEMP 35.8–36.7; O2SAT 95–98; BMI 40.0
[2023-07-26 01:02] LABS: Partial Thromboplast Time 60.9 Seconds (24.1-36.2)
[2023-07-26 07:06] LABS: Absolute Lymphocyte Count 1.67 X10^3/uL (0.83-4.51); Absolute Neutrophil Count 2.3 X10^3/uL (2.0-7.7); Basophil# 0.03 X10^3/uL; Basophil% 0.7 % (0-1); Eosinophil# 0.21 X10^3/uL; Eosinophils% 4.6 % (0-5); Hematocrit 30.4 % (37-47); Hemoglobin 8.9 g/dL (12.0-15.0); Lymphocyte # 1.67 X10^3/ul (0.83-4.51); Lymphocyte % 36.2 % (19-41); Mean Corp Hgb Conc 29.3 g/dL (32-36); Mean Corpuscular Hgb 26.4 pg (27.0-32.0); Mean Corpuscular Volume 90.2 fL (81-99); Mean Platelet Vol. 9.7 fl (6.2-12.0); Monocyte# 0.39 X10^3/uL; Monocyte% 8.5 % (0-10); NRBC Flagged by Analyzer 0 % (0-5); Neutrophil # 2.29 X10^3/uL (2.7-7.7); Neutrophil % 49.6 % (47-70); Platelet Count 280 K/mm3 (150-450); RBC Distribution Width CV 15.8 % (11.6-14.6); RBC Distribution Width SD 52.3 fl (35.1-43.9); Red Blood Count 3.37 M/mm3 (4.2-5.4); White Blood Count 4.6 K/mm3 (4.4-11.0)
[2023-07-26 07:34] LABS: Anion Gap 6 (5-15); BUN 18 mg/dL (7-18); BUN/Creat Ratio 17.5 RATIO (10-20); Calcium,Total 9.4 mg/dL (8.5-10.1); Chloride 111 mmol/L (98-107); Creatinine, Serum 1.03 mg/dL (0.55-1.02); EST Glomerular Filtration Rate 65 mL/min (>60); Est Glom Filt Rate - Afr Amer 78 mL/min (>60); Estimated Creatinine Clearance 93.72 ml/min; Glucose 100 mg/dL (74-106); Potassium 3.4 mmol/L (3.5-5.1); Sodium Level 140 mmol/L (136-145)
[2023-07-26 08:15] LABS: Internal QC Validated? YES +Cl - CLEAR BKGD; Pregnancy, Serum, hCG Quali. NEGATIVE Negative
[2023-07-26 08:53] LABS: Partial Thromboplast Time 83.8 Seconds (24.1-36.2)
[2023-07-26] MEDS: HEPARIN/D5w 25,000 UNITS 25,000 UNITS/250 ML IV.SOLN. 5 UNITS CONT INF (12:00)
--- NOTE | 2023-07-26 12:09 | PCM.OPRPT ---
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 Given the extent of her thrombus she is felt to be appropriate for percutaneous thrombectomy. She has been admitted to bridge with heparin from her oral anticoagulation and she is taken now for percutaneous thrombectomy. Description of procedure: Upon obtaining form consent and verification with patient procedure and site patient was taken to the operating room where she was placed under anesthesia she was then positioned prepped and draped in you sterile fashion in prone positioning. Timeout was then performed and ultrasound used to evaluate the right popliteal vein which was dilated noncompressible. This was then accessed under ultrasound guidance with micropuncture needle wire was then exchanged for micropuncture sheath. Through the micropuncture sheath hand-injection venogram of the popliteal and femoral vein was performed revealed moderate remaining thrombus with some flow channels slowed venous emptying. Through the micropuncture sheath a glide advantage wire was advanced the micropuncture sheath exchanged out for an 8 Ghanaian sheath. The glide advantage wire was then advanced more cephalad traversing the femoral and then the iliac venous system ultimately advancing into the inferior vena cava final positioning in the right subclavian vein. Through the 8 Ghanaian sheath intravascular sound probe was advanced and recorded pullback performed of the inferior vena cava, right common iliac vein, right external vein, right common femoral vein, right femoral-popliteal vein. This revealed very chronic appearing thrombus in the external iliac vein as well as adjacent compression. Is also revealed more acute appearing thrombus in the femoral-popliteal vein. The common femoral vein, and common iliac veins are both free of thrombus or compression. Is felt that this was appropriate for thrombectomy so the patient was then bolused with heparin and allowed to circulate for 3 minutes. The 8 Ghanaian sheath was then exchanged out for the Inari Clotriever sheath. The Inari Clotriever Bold was then advanced over the wire deployed for multiple runs across the external iliac, common femoral, or popliteal veins. No further thrombus was retrieved the intravascular sound probe was then readvanced and recorded pullback performed of the IVC, common iliac external iliac veins, common femoral popliteal veins. This revealed no significant further clot burden but residual compression remained of the external iliac vein. A Bard Venovo self-expanding venous stent 12 x 60 was then brought to field prep for airplane refueler instructions. This then advanced in position with satisfactory overlap onto normal vessel above and below the compression. This then deployed and then postdilated with first a 10 mm angioplasty limb followed by 12 mm angioplasty balloon. Completion venogram revealed brisk contrast transit with no extravasation or dissection and no residual compression. Intravascular supply was then readvanced and recorded pullback of the stented segment were performed which revealed satisfactory stent wall apposition with no residual compression. So there is no further need for any additional endovascular invention so the wire and catheters were withdrawn. A 3-0 silk U-stitch was then placed at the skin and the sheath withdrawn. After securing the suture 5 minutes manual pressure was held after satisfactory stasis was noted. Patient was then awakened from her anesthetic taken the recovery room for anticipated return to the progressive care unit. Grafts/Implants Used: 12 x 60 Bard Venovo
[2023-07-26] MEDS: 0.9% Normal Saline (1000mL) 1,000 ML 15 ML IV (12:46)
[2023-07-26] MEDS: Potassium Chloride 10mEq/100mL 10 MEQ/100 ML IV.SOLN. 100 MEQ IV BOLUS (13:51)
--- NOTE | 2023-07-26 13:56 | CHAPLAIN ---
Type of Pastoral Visit _x__ Initial Visit ___ Follow-up Visit ___ On-call Visit ___ General Patient Visit ___ Spiritual Assessment ___ Family Conference ___ Bereavement ___ Rapid Response ___ Code Blue ___ Other (describe below) Pastoral Care Referral From _x__ Patient _x__ Family ___ Nurse ___ Physician ___ Sat Tutor ___ Hearing Consultant ___ Other (describe below) Sacrament/Intervention _x__ Active listening ___ Anointing ___ Zoroastrian ___ Bereavement ___ Communion ___ Nicolette exploration ___ ___ Life review _x__ Prayer ___ Reconciliation ___ Sacrament of Sick _x__ Supportive presence ___ Wedding ___ Other (describe below) Pastoral Comments patient has returned from a procedure; family members are in the room; pt is welcoming and family explains that she has been in hospital prior to this for 48 in [place]; recovery and healing process is continuing; family and patient are thankful for being local now and receiving the care for next phase; prayer is welcomed; offer of future visits and care given
[2023-07-26] MEDS: oxyCODONE 5 MG Tablet PO ×3 (14:33→22:53)
[2023-07-26] MEDS: Acetaminophen 500 MG Tablet 1000 MG PO ×2 (14:33→21:34)
--- NOTE | 2023-07-26 14:45 | CASEMGMT ---
RN OZZIE Face to Face with patient for initial transition planning/care coordination assessment. RN CM introduced self and role at [facility]. Patient lying in bed, alert and oriented, parents at bedside. Patient willing to participate in assessment and is able to answer all questions appropriately. Care providers, pharmacy, and demographics verified. Patient wishes to discharge home, denies need for home health at this time. Patient states he has no further needs or concerns at this time. CM to follow for discharge planning needs that may arise. PCP: Ingrid Specialists: Dana, colorectal surgeon [facility] Preferred Pharmacy: [facility] retail at discharge. Insurance: [employer] Prescription Benefit: yes Living Will/HPOA: none LNOK: parents, boyfriend, Living Arrangements: Patient lives with boyfriend and 6yo son in a duplex with 2-3 steps to enter the home. Patient is independent for dressing and toileting, BF and family assist with bathing. Transportation: parents DME/HHC: Patient has raised toilet, lift chair, and walker at home. Patient has been to [facility] in the past. Disposition Plan: Patient to discharge home with family support and follow-up plans in place. Leslie CARNEY, RN, CM
[2023-07-26 15:21] LABS: Partial Thromboplast Time 82.7 Seconds (24.1-36.2)
[2023-07-26] MEDS: HEPARIN/D5w 25,000 UNITS 25,000 UNITS/250 ML IV.SOLN. 15 UNITS CONT INF (17:35)
[2023-07-26] MEDS: Ensure Plus High Protein 120 ML LIQUID PO (17:36)
[2023-07-26] MEDS: MELATONIN 3 MG TABLET PO (21:34)
[2023-07-26] MEDS: QUEtiapine 25 MG Tablet PO (21:34)
[2023-07-26] MEDS: Polyethylene Glycol 3350 17 GM PACKET PO (21:35)
[2023-07-26] MEDS: Docusate Sodium 100 MG Capsule PO (21:35)
[2023-07-26 22:41] LABS: Partial Thromboplast Time 105.2 Seconds (24.1-36.2)
[2023-07-27 01:37] VITALS: BP 122/69; PULSE 84; RESP 18; TEMP 36.8; O2SAT 95
[2023-07-27 05:46] VITALS: BP 126/80; PULSE 79; RESP 16; TEMP 36.8; O2SAT 94
[2023-07-27] MEDS: Acetaminophen 500 MG Tablet 1000 MG PO (05:51)
[2023-07-27 07:28] LABS: Anion Gap 7 (5-15); BUN 16 mg/dL (7-18); Calcium,Total 9.3 mg/dL (8.5-10.1); Chloride 110 mmol/L (98-107); Creatinine, Serum 1.07 mg/dL (0.55-1.02); EST Glomerular Filtration Rate 62 mL/min (>60); Est Glom Filt Rate - Afr Amer 75 mL/min (>60); Estimated Creatinine Clearance 90.21 ml/min; Glucose 130 mg/dL (74-106); Potassium 3.5 mmol/L (3.5-5.1); Sodium Level 139 mmol/L (136-145)
--- NOTE | 2023-07-27 07:43 | PN.SURG_ITS ---
Subjective Subjective Patient is doing well this morning. She has some discomfort at the access site behind the R knee but otherwise no pain in her RLE and no other complaints. She was able to tolerate dinner last night, ambulating well, and voiding without difficulty. She has been on therapeutic heparin since yesterday evening and ther e is no bleeding/hematoma at the access site. Objective Data Objective Data Vital Signs: Vital Signs Temp Pulse Resp BP Pulse Ox O2 Del Method 98.3 F 79 16 126/80 H 94 Room Air 07/27/23 05:46 07/27/23 05:46 07/27/23 05:46 07/27/23 05:46 07/27/23 05:46 07/27/23 07:03 Oxygen Delivery Method Room Air Weight: 240 lb 11.211 oz Body Mass Index (BMI) 40.0 Intake & Output: Intake and Output for Last 24 Hours 07/25/23 07/26/23 07/27/23 23:59 23:59 23:59 Intake Total 240 / 240 1521.55 / 1521.55 0 / 0 Balance 240 / 240 1521.55 / 1521.55 0 / 0 Lab / Micro Data 07/26/23 06:25 07/27/23 06:45 Labs: Laboratory Results - last 24 hr 07/26/23 06:25: APTT 83.8 H, Serum , Qual NEGATIVE 07/26/23 14:59: APTT 82.7 H 07/26/23 22:07: APTT 105.2 H* 07/27/23 06:45: Sodium 139, Potassium 3.5, Chloride 110 H, Carbon Dioxide 22.0, Anion Gap 7, BUN 16, Creatinine 1.07 H, Estim Creat Clear Calc 90.21, Est GFR (MDRD) Af Amer 75, Est GFR (MDRD) Non-Af 62, BUN/Creatinine Ratio 15.0, Glucose 130 H, Calcium 9.3 Physical Exam Const oriented x3 and no apparent distress Resp normal respiratory effort Cardio regular rate and regular rhythm Extremity Extremity Narrative: R popliteal access site with no significant bruising, no bleeding, no hematoma, no erythema Assessment & Plan Assessment/Plan (1) Deep vein thrombosis (DVT) of right lower extremity: QUALIFIERS: Affected thrombotic vein of extremity: femoral Chroni city: acute Qualified Code(s): I82.411 - Acute embolism and thrombosis of right femoral vein PLAN: Plan Patient is s/p RLE venogram with thrombectomy and ext iliac vein stenting on 07/26/23. She tolerated the procedure well. The access site is satisfactory in appearance. Will restart Eliquis this morning. Will discontinue heparin drip 1 hour after she takes her Eliquis this morning. Will also initiate Plavix with 300mg loading dose. Then she will continue with Plavix 75mg daily at home starting tomorrow. Anticipate discharge today. 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 Next of kin: [place] law dictates a PRIORITY LIST for identifying legal decision-maker/legal next of kin in the following order (LNOK): 1st: The patient?s legal guardian, if any 2nd: The patient's spouse (if status is questionable, consult Risk Management) 3rd: The patient?s adult child(aguilar) (majority, if multiple children) 4th: The patient?s parents 5th: The patient?s adult siblings (majority, if multiple children siblings)
[2023-07-27 07:53] LABS: Partial Thromboplast Time 45.7 Seconds (24.1-36.2)
--- NOTE | 2023-07-27 07:58 | PCM.DC.SUM ---
Providers Date of Admission: 07/25/23 Primary Care Physician: Dr. Trang Quintero MD Reason For Visit: BLOODCLOT Acute embolism and thrombosis of unspeci Diagnosis Discharge Diagnosis (1) Deep vein thrombosis (DVT) of right lower extremity: Status: Acute Code(s): I82.401 - Acute embolism and thrombosis of unspecified deep veins of right lower extremity Qualifiers: Affected thrombotic vein of extremity: femoral Chronicity: acute Qualified Code(s): I82.411 - Acute embolism and thrombosis of right femoral vein Medications at Discharge Home Medications acetaminophen 500 mg tablet 500 - 1,000 mg PO Q6H PRN PRN Mild Pain (-09/17) 10/14/16 Ibuprofen [Motrin] 800 mg PO TID PRN PRN Pain #30 tabs 10/21/16 ondansetron 4 mg disintegrating tablet 8 mg (2 x 4 mg) PO Q8H PRN PRN Nausea #20 tabs 05/06/23 apixaban 5 mg tablet (Eliquis) 5 mg PO BID #60 tabs 07/14/23 quetiapine 25 mg tablet (Seroquel) 25 mg PO QHS 07/14/23 docusate sodium 100 mg capsule 100 mg PO BID constipation 07/25/23 melatonin 3 mg tablet 3 mg PO QHS insomni 07/25/23 polyethylene glycol 3350 17 gram/dose oral powder (Powderlax) 17 g PO BID constipation 07/25/23 clopidogrel 75 mg tablet (Plavix) 75 mg PO DAILY #30 tabs 07/27/23 Hospital Course Summary of Care Provided Hospital Course: Nuzhat Murphy is a 33 y/o female who underwent planned RLE venogram with thrombectomy and ext iliac vein stenting on 07/26/23. She was admitted on 07/25 for heparin bridging prior to the procedure. She tolerated the procedure well. Following the procedure, she was restarted on heparin with no bleeding complications and transitioned back to Eliquis this morning. She was also initiated on Plavix secondary to the iliac vein stent. At home, she will continue with Eliquis 5mg PO BID and Plavix 75mg PO daily. She has tolerated a normal diet, has been voiding without difficulty, and has been ambulating well. She has one suture in the R popliteal fossa which will be removed in the office in 1 week. Physical Exam Const oriented x3 and no apparent distress Resp normal respiratory effort Cardio regular rate and regular rhythm Extremity Extremity Narrative: R popliteal access site with no significant bruising, no bleeding, no hematoma, no erythema Weight / BMI Weight Weight: 240 lb 11.211 oz Body Mass Index (BMI) 40.0 ABG / Lab / Microbiology Data 07/26/23 06:25 07/27/23 06:45 Laboratory: Laboratory Results - last 24 hr 07/26/23 06:25: APTT 83.8 H, Serum , Qual NEGATIVE 07/26/23 14:59: APTT 82.7 H 07/26/23 22:07: APTT 105.2 H* 07/27/23 06:45: APTT 45.7 H, Sodium 139, Potassium 3.5, Chloride 110 H, Carbon Dioxide 22.0, Anion Gap 7, BUN 16, Creatinine 1.07 H, Estim Creat Clear Calc 90.21, Est GFR (MDRD) Af Amer 75, Est GFR (MDRD) Non-Af 62, BUN/Creatinine Ratio 15.0, Glucose 130 H, Calcium 9.3 D/C Instructions Discharge Diet: No restrictions May shower in (days): 1 Weight Bearing Status: Weight bearing as tolerated Lifting Restricted to (Lbs): 20 Lifting Restrictions: Do not lift greater than 20 pounds for 2 weeks Call your doctor if your incision/area has: Sudden Increased Bleeding, Increased Pain/ Swelling and Foul Smelling Discharge Call your doctor if you observe: Fever of 101 or Higher and Uncontrolled pain Additional Instructions: You have one suture behind your right knee. This will stay in place for 1 week and will be removed at your office visit. You may leave this open to air, or you can keep covered with a bandage/dry dressing if that is more comfortable for you. If you keep it covered with a dressing, change this dressing daily. You may shower. Soap and water may rinse over the incision site. Pat gently to dry. Do not submerge the incision site in water such as to take a bath, swim, etc. for 2 weeks. Do not lift greater than 20 pounds for 2 weeks. Otherwise, please continue with activity as tolerated. You were found to have right iliac vein compression which was treated with a stent. To protect this stent, you have been started on Plavix 75mg to be taken by mouth daily. Continue to take your Eliquis 5mg by mouth twice daily. You may take Tylenol as needed for pain. Please Follow Up With: Kaitlyn Branham PA When: 1 week for suture removal Meaningful Use Info Meaningful Use Diagnoses (Choose all that apply): None applicable Discharge Plan Admission Admit Date/Time: 07/25/23 15:49 Attending Provider: Emilio Davis Primary Care Provider: Trang Quintero Instructions Additional Instructions / Restrictions: You have one suture behind your right knee. This will stay in place for 1 week and will be removed at your office visit. You may leave this open to air, or you can keep covered with a bandage/dry dressing if that is more comfortable for you. If you keep it covered with a dressing, change this dressing daily. You may shower. Soap and water may rinse over the incision site. Pat gently to dry. Do not submerge the incision site in water such as to take a bath, swim, etc. for 2 weeks. Do not lift greater than 20 pounds for 2 weeks. Otherwise, please continue with activity as tolerated. You were found to have right iliac vein compression which was treated with a stent. To protect this stent, you have been started on Plavix 75mg to be taken by mouth daily. Continue to take your Eliquis 5mg by mouth twice daily. You may take Tylenol as needed for pain. Discharge Orders/Prescriptions Prescriptions: New clopidogrel [Plavix] 75 mg tablet 75 mg PO DAILY Qty: 30 11RF Continued quetiapine [Seroquel] 25 mg tablet 25 mg PO QHS Eliquis 5 mg tablet 5 mg PO BID Qty: 60 5RF acetaminophen 500 MG tablet 500 - 1,000 mg PO Q6H PRN PRN (Reason: Mild Pain (1-09/17)) Ibuprofen [Motrin] 800 MG tablet 800 mg PO TID PRN PRN (Reason: Pain) Qty: 30 0RF Rx Instructions: ondansetron 4 mg tablet,disintegrating 8 mg PO Q8H PRN PRN (Reason: Nausea) Qty: 20 0RF melatonin 3 mg tablet 3 mg PO QHS docusate sodium 100 mg capsule 100 mg PO BID Patient Comments: Pt says she takes them at 8am and 8pm polyethylene glycol 3350 [Powderlax] 17 gram/dose powder 17 g PO BID Referrals / Follow Up: Trang Quintero MD [Primary Care Provider] - Disposition Disposition (needs filled in before D/C Order can be placed): Home, Self Care
[2023-07-27 08:20] VITALS: BP 122/86; PULSE 70; RESP 18; TEMP 36.6; O2SAT 95
[2023-07-27] MEDS: Docusate Sodium 100 MG Capsule PO (08:30)
[2023-07-27] MEDS: oxyCODONE 5 MG Tablet PO (08:30)
[2023-07-27] MEDS: Polyethylene Glycol 3350 17 GM PACKET PO (08:30)
[2023-07-27] MEDS: Clopidogrel Bisulfate 300 MG Tablet PO (08:30)
[2023-07-27] MEDS: APIXABAN 5 MG TABLET PO (08:30)
--- NOTE | 2023-07-27 10:22 | PHA.DC_ITS ---
Pharmacy [facility] Service has performed discharge medication reconciliation and counseling for this patient. 1. CLOPIDOGREL 75MG PO DAILY The patient's discharge medication list was reviewed for discrepancies and discrepancies were resolved. The patient was counseled on the following discharge medications and changes in medications for homegoing were reviewed. The Reason for Use, instructions for use, and potential side effects were reviewed for all new medications. The patient's questions regarding all of their medications were answered. The patient was able to verbally demonstrate an understanding of their discharge medications. Medications at Discharge Home Medications acetaminophen 500 mg tablet 500 - 1,000 mg PO Q6H PRN PRN Mild Pain (1-09/17) 10/14/16 Ibuprofen [Motrin] 800 mg PO TID PRN PRN Pain #30 tabs 10/21/16 ondansetron 4 mg disintegrating tablet 8 mg (2 x 4 mg) PO Q8H PRN PRN Nausea #20 tabs 05/06/23 apixaban 5 mg tablet (Eliquis) 5 mg PO BID #60 tabs 07/14/23 quetiapine 25 mg tablet (Seroquel) 25 mg PO QHS 07/14/23 docusate sodium 100 mg capsule 100 mg PO BID constipation 07/25/23 melatonin 3 mg tablet 3 mg PO QHS insomni 07/25/23 polyethylene glycol 3350 17 gram/dose oral powder (Powderlax) 17 g PO BID constipation 07/25/23 clopidogrel 75 mg tablet (Plavix) 75 mg PO DAILY #30 tabs 07/27/23
--- NOTE | 2023-07-27 10:28 | CASEMGMT ---
Patient has order for discharge. RN CM in to discuss needs at discharge. Patient denies needs or help at discharge, family supportive. Patient had no further questions or concerns.
== END 2023-07-27 12:21 | disposition home or self-care (01) | DRG 169 ==
PROVIDERS: Physician Assistant; Admitting Provider Surgery Trauma Surgery; PCP Internal Medicine; Visit Provider Surgery Trauma Surgery
PROC: 067F3DZ Dilation of Right External Iliac Vein with Intraluminal Device, Percutaneous Approach (ICD-10-PCS; principal; 2023-07-26 09:40)
DX: I82.411 Acute embolism and thrombosis of right femoral vein (principal); I87.1 Compression of vein; I82.521 Chronic embolism and thrombosis of right iliac vein; Z93.3 Colostomy status; Z79.01 Long term (current) use of anticoagulants
CPT/HCPCS: 36005; 36010; 36415; 37187; 37238; 37252; 37253; 75820; 75825; 76937; 80048; 84703; 85025; 85610; 85730; 94668; 97802; 99252; C1725; C1753; C1757; C1769; C1894; J7030; Q9967; A4216; C1876; G0463; J2405

== ENCOUNTER 2023-10-28 09:16 | Observation (INO) | payer MEDICAID, SELFPAY ==
[2023-10-28] VITALS (9 sets, daily range): BP systolic 121–146; BP diastolic 65–96; PULSE 67–105; RESP 12–18; TEMP 36.4–36.9; O2SAT 95–99; BMI 39.5; BMI 39.8
[2023-10-28 09:58] LABS: Absolute Neutrophil Count 10.7 X10^3/uL (2.0-7.7); Basophil# 0.04 X10^3/uL; Basophil% 0.3 % (0-1); Eosinophil# 0.04 X10^3/uL; Eosinophils% 0.3 % (0-5); Mean Corp Hgb Conc 32.4 g/dL (32-36); Mean Corpuscular Hgb 29.2 pg (27.0-32.0); Monocyte% 3.2 % (0-10); NRBC Flagged by Analyzer 0 % (0-5); Neutrophil # 10.68 X10^3/uL (2.7-7.7); Neutrophil % 84.3 % (47-70); Platelet Count 545 K/mm3 (150-450); RBC Distribution Width CV 14.6 % (11.6-14.6); RBC Distribution Width SD 48.1 fl (35.1-43.9); Red Blood Count 4.11 M/mm3 (4.2-5.4); White Blood Count 12.7 K/mm3 (4.4-11.0)
[2023-10-28 10:05] LABS: Internal QC Validated? YES +Cl - CLEAR BKGD; Pregnancy, Serum, hCG Quali. NEGATIVE Negative
[2023-10-28 10:09] LABS: Mucous, Urine 0 SEEN /hpf (<or=2+); Red Blood Cells-Urine 0 SEEN /hpf (0-5)
[2023-10-28 10:11] LABS: Anion Gap 11 (5-15); BUN 12 mg/dL (7-18); BUN/Creat Ratio 9.3 RATIO (10-20); Calcium,Total 9.5 mg/dL (8.5-10.1); Chloride 104 mmol/L (98-107); Creatinine, Serum 1.29 mg/dL (0.55-1.02); EST Glomerular Filtration Rate 50 mL/min (>60); Est Glom Filt Rate - Afr Amer 60 mL/min (>60); Estimated Creatinine Clearance 74.31 ml/min; Glucose 159 mg/dL (74-106); Potassium 3.2 mmol/L (3.5-5.1); Sodium Level 138 mmol/L (136-145)
[2023-10-28 10:25] LABS: Color, Urine Yellow (Yellow); Glucose, Dipstick Normal (Normal); Ketone-Dipstick 5 mg/dl (Negative); Leukocyte Esterase-Dipstick 500 /ul (Negative); Nitrite-Dipstick Positive (Negative); Occult Blood-Urine 250 /ul (Negative); Protein-Dipstick 30 mg/dl (Negative); Urine Bilirubin Dipstick Negative (Negative); Urine Clarity Cloudy (Clear); Urine Urobilinogen Normal (Normal)
[2023-10-28 10:30] LABS: Squamous Epithelial Cells - UA 25-50 SEEN /hpf (5-10); White Blood Cells >100 SEEN /hpf (0-5)
[2023-10-28 10:31] LABS: Bacteria 2+ /hpf (None Seen)
--- NOTE | 2023-10-28 11:00 | CT_ITS ---
STUDY: CT ABDOMEN AND PELVIS WITH CONTRAST REASON FOR EXAM: Female, 33 years old. Epigastric pain. Prior colostomy. RADIATION DOSAGE (If Supplied By Facility): CTDIvol = ( 15.40 ) mGy, DLP = ( 1330.74 ) mGycm TECHNIQUE: Transaxial images were obtained from the dome of the diaphragm to the symphysis pubis without oral contrast. IV 100mL Isovue-370 was administered. Sagittal and coronal images were reconstructed. Individualized dose optimization techniques were used for this CT. COMPARISON: Comparison is made with prior study May 11, 2023. FINDINGS: The visualized lung bases are unremarkable. The visualized portions of the heart are within normal limits. There is decreased attenuation of the liver consistent with steatosis. There is distention of the gallbladder. Thickened wall. Small amount of pericholecystic fluid. Increased markings in the surrounding fat. There is a 1.8 cm gallstone in the neck of the gallbladder. Correlation with ultrasound is recommended for further evaluation. Normal spleen. Normal pancreas. Normal bilateral adrenal glands. Normal right kidney. Complex cystic nodule seen in the upper pole of the left kidney with increased markings in the surrounding peritoneal fat. This was not present on prior study. Pyelonephritis should BE ruled out. Normal visualized stomach. Normal small intestine. A colostomy is seen in the lower anterior abdominal wall. The appendix is visualized and appears normal. Normal abdominal aorta. A vascular stent is seen in the right common iliac artery. Normal inferior vena cava. Normal retroperitoneum. Normal urinary bladder. IUD is seen within the uterus. Inflammatory changes with cysts are seen in the left labium. There is a 2.4 cm cystic nodule in the anterior abdominal wall overlying the upper pelvis. Normal osseous structures. CT/Abdomen/Pelvis W IV Cont ONLY IMPRESSION: Findings suggestive of acute cholecystitis with a stone in the neck of the gallbladder. Heterogeneous appearance of the upper pole of the left kidney as described. Pyelonephritis should BE ruled out. Diffuse fatty infiltration of the liver. A colostomy is seen in the left anterior abdominal wall. Electronically Signed: Vivek Gilmore MD at 12:00 EDT ,
--- NOTE | 2023-10-28 11:03 | ED.VIS.GI ---
HPI <LAUREN Medina - Last Filed: 10/28/23 19:46> HPI - GI History of Present Illness Chief Complaint: Abd Pain Narrative Narrative: 33-year-old female with past medical history of colonic perforation from diverticulitis with colostomy, PCOS, DVT presents with upper abdominal pain and nausea and vomiting that started last night. It woke her from sleep. She has not been able to keep down anything today. She felt a little mildly backed up recently and took 1 dose of MiraLAX this morning and has had loose stool output which is typical for her. No black or bloody stools. No urinary symptoms. She states her prior CT scans have shown gallstones. PFS <LAUREN Medina - Last Filed: 10/28/23 19:46> [facility] Medical History Diabetes GERD (gastroesophageal reflux disease) Goiter High blood pressure History of anemia History of gestational diabetes IBS (irritable bowel syndrome) Insulin resistance Metabolic syndrome Paresthesia PCOS (polycystic ovarian syndrome) Polycystic disease, ovaries Preeclampsia UTI (urinary tract infection) Home Medications acetaminophen 500 mg tablet 500 - 1,000 mg PO Q6H PRN Mild Pain (1-09/17) 10/14/16 [History Last Taken 10/17/16] apixaban 5 mg tablet (Eliquis) 5 mg PO BID #60 tabs 07/14/23 [Rx Last Taken 10/27/23] docusate sodium 100 mg capsule 100 mg PO BID constipation 07/25/23 [History Last Taken 10/27/23] melatonin 3 mg tablet 3 mg PO QHS insomni 07/25/23 [History Last Taken 10/27/23] polyethylene glycol 3350 17 gram/dose oral powder (Powderlax) 17 g PO BID constipation 07/25/23 [History Last Taken 10/27/23] clopidogrel 75 mg tablet (Plavix) 75 mg PO DAILY #30 tabs 07/27/23 [Rx Last Taken 10/26/23] hydrocolloid dressing 4 X 5 (Aquacel Extra) #10 ea 08/03/23 [Rx Last Taken Unknown] hydrocolloid dressing 6 X 6 (Comfeel Plus Clear Dressing) #5 ea 08/03/23 [Rx Last Taken Unknown] ondansetron 4 mg disintegrating tablet 8 mg PO Q8H PRN Nausea 10/28/23 [History Last Taken Unknown] tirzepatide 2.5 mg/0.5 mL subcutaneous pen injector 2.5 mg subcut MO 10/28/23 [History Last Taken 10/24/23] Allergy/AdvReac Type Severity Reaction Status Date / Time No Known Allergies Allergy Verified 10/28/23 09:16 Family History Other Autoimmune disease Cancer Graves disease Hypertension Thyroid disorder Surgical History History of colon surgery (~05/2023) Social History Smoking Status: Never smoker alcohol intake: former details: drank a couple weeks a week substance use type: does not use frequency: 1-2 times per week ROS <LAUREN Medina - Last Filed: 10/28/23 19:46> ROS ED ROS Narrative Constitutional: Negative for fever, chills, malaise. CVS: Negative for chest pain. Respiratory: Negative for shortness of breath. GI: Positive for abdominal pain, nausea, vomiting. Negative for melena, hematochezia. : Negative for dysuria, hematuria or frequency. EXAM <LAUREN Medina - Last Filed: 10/28/23 19:46> Physical Exam Narrative Exam Narrative: CONST: Patient appears uncomfortable but nontoxic. EYES: Normal inspection. NECK: Normal inspection. RESP: No respiratory distress, CTAB. CVS: Regular rate and rhythm, no murmur, no gallop. ABD: Soft with diffuse upper abdominal tenderness, no guarding or rebound, nondistended, no hepatosplenomegaly. SKIN: Color normal, no rash, warm, dry, intact. EXTREMITIES: Normal appearance, no pedal edema. NEURO: Alert and answering questions appropriately. PSYCH: Normal affect. Const Vital Signs: 10/28/23 09:16 10/28/23 12:17 10/28/23 14:00 Temperature 97.5 F L Temperature Source Temporal Pulse Rate 81 77 75 Respiratory Rate 18 16 14 Blood Pressure 136/96 H 143/92 H 131/86 H Blood Pressure Mean 109 109 101 Pulse Ox 99 99 99 Oxygen Delivery Method Room Air Room Air Room Air 10/28/23 16:00 10/28/23 18:00 10/28/23 18:43 Temperature 98.1 F 98.3 F Temperature Source Oral Pulse Rate 89 88 91 Respiratory Rate 12 18 16 Blood Pressure 132/87 H 130/65 H 146/86 H Blood Pressure Mean 102 86 106 Pulse Ox 95 97 99 Oxygen Delivery Method Room Air Room Air <Dr. Rob Hall MD - Last Filed: 10/28/23 12:25> Physical Exam Const Vital Signs: 10/28/23 09:16 10/28/23 12:17 10/28/23 14:00 Temperature 97.5 F L Temperature Source Temporal Pulse Rate 81 77 75 Respiratory Rate 18 16 14 Blood Pressure 136/96 H 143/92 H 131/86 H Blood Pressure Mean 109 109 101 Pulse Ox 99 99 99 Oxygen Delivery Method Room Air Room Air Room Air 10/28/23 16:00 10/28/23 18:00 10/28/23 18:43 Temperature 98.1 F 98.3 F Temperature Source Oral Pulse Rate 89 88 91 Respiratory Rate 12 18 16 Blood Pressure 132/87 H 130/65 H 146/86 H Blood Pressure Mean 102 86 106 Pulse Ox 95 97 99 Oxygen Delivery Method Room Air Room Air MDM <LAUREN Medina - Last Filed: 10/28/23 19:46> [facility] MDM Narrative Medical decision making narrative: History gathered from: Patient, mom Differential: GERD, PUD, pancreatitis, gallbladder etiology, diverticulitis, SBO Consults: Hospitalist, general surgery, [facility] transfer line Patient has acute upper abdominal pain with nausea and vomiting that started last night. She has a history of colostomy due to perforated diverticulitis. She appears uncomfortable but nontoxic. Afebrile and hemodynamically stable. She is diffusely tender in the upper abdomen with no peritoneal signs. Labs show white count of 12.7, mild hypokalemia at 3.2, otherwise normal BMP. Liver enzymes and lipase are normal. test negative. Urinalysis is contaminated. CT scan shows acute cholecystitis and a stone in the neck of the gallbladder. She was treated with IV Zosyn. I consulted general surgery and Dr. Henry states the patient needs to be transferred since she is on blood thinners. [facility] has been contacted as this is the patient's preference. Ultrasound shows thickened gallbladder wall with pericholecystic fluid and CBD at 7.8 mm. The attending spoke with a general surgeon at [facility], Dr. Gilmore, who states the patient can be admitted here. They can hold her blood thinners and give heparin perioperatively if needed. Case was discussed with both the hospitalist and Dr. Henry and she was admitted under the medicine service. I have personally performed a face to face assessment of the patient and have reviewed the AKANSKHA Note. I performed a substantive portion of the visit including all aspects of the following. My pandey findings include: History is 33-year-old female history of prior partial colectomy due to diverticulitis and perforation. That was done complete in clinic. Complaining of upper abdominal pain. She is a known history of gallstones. She has had some intermittent nausea vomiting. Exam is [well-appearing 33-year-old female. Vital signs stable afebrile. Does not look septic toxic. No distress. H EENT exam unremarkable. Neck nontender. Lungs clear to auscultation. Abdomen soft nondistended normal bowel sounds no peritoneal signs. Right upper quadrant tenderness no Nickerson sign. Right lower quadrant unremarkable. No obstruction. Moving all 4 extremities. Nontender no edema. Neurologically she is awake alert no focal motor deficits.] Medical Decision Making [33-year-old female abdominal pain. CAT scan and labs. White count elevated 12.7. H&H 12 and 37. Electrolytes show potassium 3.2. Gap 11. BUN 12 creatinine 1.29. Liver enzymes are pending. test negative. UA contaminated.] Other additions or changes: [CAT scan shows gallstone in the neck of the gallbladder. Awaiting liver enzymes and lipase. She is being treated with Zosyn. She is receiving pain medication. We will consult general surgery when his labs return.] Lab Data Attestation: I reviewed the patient's lab results. Labs: Laboratory Results - last 24 hr 10/28/23 10/28/23 09:45 10:05 WBC 12.7 H RBC 4.11 L Hgb 12.0 Hct 37.0 MCV 90.0 MCH 29.2 MCHC 32.4 RDW Std Deviation 48.1 H RDW Coeff of Deyvi 14.6 Plt Count 545 H MPV 9.0 Immature Gran % (Auto) 0.900 Neut % (Auto) 84.3 H Lymph % (Auto) 11.0 L Austin % (Auto) 3.2 Eos % (Auto) 0.3 Baso % (Auto) 0.3 Absolute Neuts (auto) 10.7 H Absolute Lymphs (auto) 1.40 Nucleated RBC % 0 Sodium 138 Potassium 3.2 L Chloride 104 Carbon Dioxide 23.0 Anion Gap 11 BUN 12 Creatinine 1.29 H Estim Creat Clear Calc 74.31 Est GFR (MDRD) Af Amer 60 Est GFR (MDRD) Non-Af 50 L BUN/Creatinine Ratio 9.3 L Glucose 159 H Calcium 9.5 Total Bilirubin 0.30 Direct Bilirubin 0.15 AST 14 L ALT 20 Alkaline Phosphatase 91 Total Protein 8.7 H Albumin 3.1 L Globulin 5.6 H Lipase 22 Serum , Qual NEGATIVE Urine Color Yellow Urine Clarity Cloudy Urine pH 6.0 Ur Specific Eckley 1.020 Urine Protein 30 H Urine Glucose (UA) Normal Urine Ketones 5 H Urine Occult Blood 250 H Urine Nitrite Positive H Urine Bilirubin Negative Urine Urobilinogen Normal Ur Leukocyte Esterase 500 H Urine RBC 0 SEEN Urine WBC >100 SEEN Ur Squamous Epith Cells 25-50 SEEN Urine Bacteria 2+ Urine Mucus 0 SEEN Radiography Diagnostic Testing: Clinical Impression(s) from Imaging Studies Abdomen/Pelvis CT 10/28/23 11:00 IMPRESSION: Findings suggestive of acute cholecystitis with a stone in the neck of the gallbladder. Heterogeneous appearance of the upper pole of the left kidney as described. Pyelonephritis should BE ruled out. Diffuse fatty infiltration of the liver. A colostomy is seen in the left anterior abdominal wall. Electronically Signed: Vivek Gilmore MD at 12:00 EDT , Gallbladder Ultrasound 10/28/23 13:50 IMPRESSION: Gallbladder is distended with thickened wall at 5.5 mm. Small amount of pericholecystic fluid. Enlarged echogenic liver in keeping with fatty infiltration. CBD measures 7.3 mm. Electronically Signed: Vivek Gilmore MD at 15:28 EDT , <Dr. Rob Hall MD - Last Filed: 10/28/23 12:25> [facility] Narrative Medical decision making narrative: History gathered from: Patient, mom Differential: GERD, PUD, pancreatitis, gallbladder etiology, diverticulitis, SBO Patient has acute upper abdominal pain with nausea and vomiting that started last night. She has a history of colostomy due to perforated diverticulitis. She appears uncomfortable but nontoxic. Afebrile and hemodynamically stable. She is diffusely tender in the upper abdomen with no peritoneal signs. Labs show white count of 12.7, mild hypokalemia at 3.2, otherwise normal BMP. Liver profile and lipase pending. test negative. Urinalysis is contaminated. I have personally performed a face to face assessment of the patient and have reviewed the AKANKSHA Note. I performed a substantive portion of the visit including all aspects of the following. My pandey findings include: History is 33-year-old female history of prior partial colectomy due to diverticulitis and perforation. That was done complete in clinic. Complaining of upper abdominal pain. She is a known history of gallstones. She has had some intermittent nausea vomiting. Exam is [well-appearing 33-year-old female. Vital signs stable afebrile. Does not look septic toxic. No distress. H EENT exam unremarkable. Neck nontender. Lungs clear to auscultation. Abdomen soft nondistended normal bowel sounds no peritoneal signs. Right upper quadrant tenderness no Nickerson sign. Right lower quadrant unremarkable. No obstruction. Moving all 4 extremities. Nontender no edema. Neurologically she is awake alert no focal motor deficits.] Medical Decision Making [33-year-old female abdominal pain. CAT scan and labs. White count elevated 12.7. H&H 12 and 37. Electrolytes show potassium 3.2. Gap 11. BUN 12 creatinine 1.29. Liver enzymes are pending. test negative. UA contaminated.] Other additions or changes: [CAT scan shows gallstone in the neck of the gallbladder. Awaiting liver enzymes and lipase. She is being treated with Zosyn. She is receiving pain medication. We will consult general surgery when his labs return.] Lab Data Labs: Laboratory Results - last 24 hr 10/28/23 10/28/23 09:45 10:05 WBC 12.7 H RBC 4.11 L Hgb 12.0 Hct 37.0 MCV 90.0 MCH 29.2 MCHC 32.4 RDW Std Deviation 48.1 H RDW Coeff of Deyvi 14.6 Plt Count 545 H MPV 9.0 Immature Gran % (Auto) 0.900 Neut % (Auto) 84.3 H Lymph % (Auto) 11.0 L Austin % (Auto) 3.2 Eos % (Auto) 0.3 Baso % (Auto) 0.3 Absolute Neuts (auto) 10.7 H Absolute Lymphs (auto) 1.40 Nucleated RBC % 0 Sodium 138 Potassium 3.2 L Chloride 104 Carbon Dioxide 23.0 Anion Gap 11 BUN 12 Creatinine 1.29 H Estim Creat Clear Calc 74.31 Est GFR (MDRD) Af Amer 60 Est GFR (MDRD) Non-Af 50 L BUN/Creatinine Ratio 9.3 L Glucose 159 H Calcium 9.5 Total Bilirubin 0.30 Direct Bilirubin 0.15 AST 14 L ALT 20 Alkaline Phosphatase 91 Total Protein 8.7 H Albumin 3.1 L Globulin 5.6 H Lipase 22 Serum , Qual NEGATIVE Urine Color Yellow Urine Clarity Cloudy Urine pH 6.0 Ur Specific Eckley 1.020 Urine Protein 30 H Urine Glucose (UA) Normal Urine Ketones 5 H Urine Occult Blood 250 H Urine Nitrite Positive H Urine Bilirubin Negative Urine Urobilinogen Normal Ur Leukocyte Esterase 500 H Urine RBC 0 SEEN Urine WBC >100 SEEN Ur Squamous Epith Cells 25-50 SEEN Urine Bacteria 2+ Urine Mucus 0 SEEN Radiography Diagnostic Testing: Clinical Impression(s) from Imaging Studies Abdomen/Pelvis CT 10/28/23 11:00 IMPRESSION: Findings suggestive of acute cholecystitis with a stone in the neck of the gallbladder. Heterogeneous appearance of the upper pole of the left kidney as described. Pyelonephritis should BE ruled out. Diffuse fatty infiltration of the liver. A colostomy is seen in the left anterior abdominal wall. Electronically Signed: Vivek Gilmore MD at 12:00 EDT , Gallbladder Ultrasound 10/28/23 13:50 IMPRESSION: Gallbladder is distended with thickened wall at 5.5 mm. Small amount of pericholecystic fluid. Enlarged echogenic liver in keeping with fatty infiltration. CBD measures 7.3 mm. Electronically Signed: Vivek Gilmore MD at 15:28 EDT , Discharge Plan Dx/Rx/DC Orders Clinical Impression: Acute cholecystitis, Deep vein thrombosis (DVT) of right lower extremity Disposition Disposition: Acute Care Hospital [facility]
[2023-10-28] MEDS: 0.9% Normal Saline (1000mL) 1,000 ML 999 ML IV (11:12)
[2023-10-28] MEDS: Morphine 4 MG/ML Syringe IV ×2 (11:12→12:19)
[2023-10-28] MEDS: Ondansetron 4 MG/2 ML Vial IV ×2 (11:12→14:14)
[2023-10-28] MEDS: Piperacil/Tazobactam 3.375 GM in 0.9% Normal Saline (50mL MB+) 50 ML IV ×2 (12:21→22:58)
[2023-10-28 12:44] LABS: AST(SGOT) 14 U/L (15-37); Alanine Aminotransfer ALT/SGPT 20 U/L (13-56); Albumin, Serum 3.1 g/dL (3.2-5.0); Alkaline Phosphatase 91 U/L (45-117); Bilirubin, Direct 0.15 mg/dL (0.00-0.30); Globulin 5.6 g/dL (2.2-4.2); Lipase 22 U/L (13-75); Protein, Total 8.7 g/dL (6.4-8.2)
--- NOTE | 2023-10-28 13:50 | US_ITS ---
STUDY: ABDOMINAL ULTRASOUND - RIGHT UPPER QUADRANT REASON FOR VISIT: Female, 33 years old RUQ abd pain TECHNIQUE: Ultrasound evaluation of the right upper quadrant was performed with real-time and static murray-scale imaging. TECHNICAL QUALITY: Adequate. COMPARISON: Comparison is made with prior CT scan done approximately a day. FINDINGS: Liver: The liver is enlarged and measures 19.6 cm. There is increased echogenicity consistent with fatty infiltration. The bile ducts are within normal limits. There is hepatic color flow. The direction of portal flow is hepatopetal. There is no demonstrated mass lesion. Gallbladder: There is a distended gallbladder. The gallbladder wall is thickened and measures 5.5 mm. There is a positive sonographic Nickerson''s sign. There is pericholecystic fluid. There are no gallstones. Common Bile Duct (C.B.D.): The common bile duct measures 7.3 mm. Pancreas: There is nonvisualization of the pancreas due to overlying bowel gas. Right Kidney: Normal size of the right kidney. The right kidney measures 12 cm x 5.6 cm x 5.5 cm. Normal renal cortex. The right cortex measures 1.7 cm. There is no demonstrated renal mass or cyst. There is no right hydronephrosis. US/Gallbladder IMPRESSION: Gallbladder is distended with thickened wall at 5.5 mm. Small amount of pericholecystic fluid. Enlarged echogenic liver in keeping with fatty infiltration. CBD measures 7.3 mm. Electronically Signed: Vivek Gilmore MD at 15:28 EDT ,
[2023-10-28] MEDS: morphine 8 MG/ML Syringe 6 MG IV (14:15)
[2023-10-28] MEDS: HYDROmorphone 0.5 MG/0.5 ML SYRINGE IV ×3 (16:52→21:49)
--- NOTE | 2023-10-28 17:27 | ED.RN ---
CALLED [facility] AT [phone] TO SEE IF THERE IS AVAILABILITY BUT THEY SAID THAT OUR [facility] IS ALREADY WAITING ON 2 OTHER BEDS FOR PAITENTS, SO I CALLED [facility] WHO IS ALSO WITH [facility] HOWEVER THEY SAID THAT WE COULDN'T BE ON 2 DIFFERENT LISTS WITH THEM SO WE REMAIN WAITING ON THE DOC FROM [facility] MAIN TO CALL BACK.
--- NOTE | 2023-10-28 19:14 | PCM.HP.STD ---
HPI - General General Date of Admission: 10/28/23 Date of Service: 10/28/23 Chief Complaint: Abdominal pain HPI Narrative The patient is a 33 y/o F w/ PMHx: Morbid Obesity, PCOS, Hx Gestational Diabetes, Hx Chronic anemia, CKD stage II, Chronic constipation, Hx Perforated diverticular disease requiring extensive surgery with currently colostomy in place 05/2023, Unfortunately notable 06/2023 Postoperative RLE significant DVT eventually undergoing 07/26/2023 thrombectomy and angioplasty/stenting of the right external iliac vein concurrently following with vascular surgery Dr. Davis who presents to the [facility] ED on 10/28/23 with history of primarily right upper quadrant and epigastric discomfort that woke her from sleep the evening prior with onset of also nausea and emesis with inability to keep anything down over the day with some mild constipation prompting her to take some MiraLAX with loose stool following but given ongoing pain rated 10 out of 10 and worsening prompted eventual ED evaluation with no specific fevers or chills. Workup in the ED included T97.5, heart rate 81, BP 136/96, respiratory rate 18, 99% on room air, CBC with WBC 12.7, hemoglobin 12, MCV 90, platelet 545 with left shift, CMP with sodium 138, potassium 3.2, BUN/creatinine 12/1.29, GFR 50, glucose 159, hepatic profile unremarkable, lipase 22, serum negative, urinalysis with specific remedy 1.020, protein 30, ketone 5, occult blood 250, nitrite positive, leukocyte esterase 500, urine WBCs greater than 100, squamous epithelial cells however 25-50 with 2+ urine bacteria, CT abdomen and pelvis with findings suggestive of acute cholecystitis with a stone in the neck of the gallbladder, heterogeneous appearance of the upper pole of the left kidney, diffuse fatty infiltration of the liver, colostomy seen in the left anterior abdominal wall, gallbladder ultrasound with noted gallbladder distention, thickened wall at 5.5 mm with a small amount of pericholecystic fluid, enlarged echogenic liver in keeping with fatty infiltration, CBD measuring 7.3 mm. ED discussed case with general surgery Dr. Henry who requested given patient's significant history she been transition to tertiary care facility and patient was accepted by general surgery at [facility] Dr. Gilmore. In the ED patient administered Zosyn, Zofran 4 mg IV x 2, morphine 6 mg x 1, morphine 4 mg x 2, Dilaudid 0.5 mg IV x 2, famotidine 20 mg IV and 1 L normal saline bolus. [facility] Medical History CKD (chronic kidney disease), stage II GERD (gastroesophageal reflux disease) Goiter History of anemia History of gestational diabetes IBS (irritable bowel syndrome) Insulin resistance Metabolic syndrome Morbid obesity PCOS (polycystic ovarian syndrome) Home Medications acetaminophen 500 mg tablet 500 - 1,000 mg PO Q6H PRN Mild Pain (-3) 10/14/16 [History Last Taken 10/17/16] apixaban 5 mg tablet (Eliquis) 5 mg PO BID #60 tabs 07/14/23 [Rx Last Taken 10/27/23] docusate sodium 100 mg capsule 100 mg PO BID constipation 07/25/23 [History Last Taken 10/27/23] melatonin 3 mg tablet 3 mg PO QHS insomni 07/25/23 [History Last Taken 10/27/23] polyethylene glycol 3350 17 gram/dose oral powder (Powderlax) 17 g PO BID constipation 07/25/23 [History Last Taken 10/27/23] clopidogrel 75 mg tablet (Plavix) 75 mg PO DAILY #30 tabs 07/27/23 [Rx Last Taken 10/26/23] hydrocolloid dressing 4 X 5 (Aquacel Extra) #10 ea 08/03/23 [Rx Last Taken Unknown] hydrocolloid dressing 6 X 6 (Comfeel Plus Clear Dressing) #5 ea 08/03/23 [Rx Last Taken Unknown] ondansetron 4 mg disintegrating tablet 8 mg PO Q8H PRN Nausea 10/28/23 [History Last Taken Unknown] tirzepatide 2.5 mg/0.5 mL subcutaneous pen injector 2.5 mg subcut MO 10/28/23 [History Last Taken 10/24/23] Allergy/AdvReac Type Severity Reaction Status Date / Time No Known Allergies Allergy Verified 10/28/23 09:16 Family History (Updated 10/28/23 @ 19:[address] Magui Barnes MD) Mother Hypertension Father VTE (venous thromboembolism) Hx VTE after COVID. Other Autoimmune disease Cancer Graves disease Thyroid disorder Surgical History History of colon surgery (~05/2023) History of vascular surgery S/P colostomy Social History (Updated 10/28/23 @ 19:[address] Magui Barnes MD) household members: family Smoking Status: Never smoker alcohol intake: current alcohol intake frequency: holidays/special occasions only details: drank a couple weeks a week substance use type: does not use frequency: 1-2 times per week ROS ROS Narrative Admission Review of Systems: CONSTITUTIONAL: No weight loss, fever, chills, + weakness or fatigue. HEENT: Eyes: No visual loss, blurred vision, double vision or yellow sclerae. Ears, Nose, Throat: No hearing loss, sneezing, congestion, runny nose or sore throat. SKIN: No rash or itching, lesions, wounds. CARDIOVASCULAR: No chest pain, chest pressure or chest discomfort, palpitations, edema, orthopnea, syncopal events. RESPIRATORY: No shortness of breath, cough or sputum, wheezing, hemoptysis. GASTROINTESTINAL: + anorexia, nausea, vomiting, abdominal pain, constipation. No melena, BRBPR. GENITOURINARY: No dysuria, frequency, urgency or retention. NEUROLOGICAL: No headache, dizziness, syncope, paralysis, ataxia, numbness or tingling in the extremities, focal weakness, change in bowel or bladder control, seizure. MUSCULOSKELETAL: + muscle, back pain, joint pain or stiffness. HEMATOLOGIC: History of anemia, easy bleeding/bruising.+ LYMPHATICS: No enlarged nodes. No history of splenectomy. PSYCHIATRIC: No history of depression or anxiety. ENDOCRINOLOGIC: No reports of sweating, cold or heat intolerance. No polyuria or polydipsia. ALLERGIES: No history of asthma, hives, eczema or rhinitis. Vital Signs Vital Signs Vital Signs: 10/28/23 09:16 10/28/23 12:17 10/28/23 14:00 Temperature 97.5 F L Temperature Source Temporal Pulse Rate 81 77 75 Respiratory Rate 18 16 14 Blood Pressure 136/96 H 143/92 H 131/86 H Blood Pressure Mean 109 109 101 Pulse Ox 99 99 99 Oxygen Delivery Method Room Air Room Air Room Air 10/28/23 16:00 10/28/23 18:00 10/28/23 18:43 Temperature 98.1 F 98.3 F Temperature Source Oral Pulse Rate 89 88 91 Respiratory Rate 12 18 16 Blood Pressure 132/87 H 130/65 H 146/86 H Blood Pressure Mean 102 86 106 Pulse Ox 95 97 99 Oxygen Delivery Method Room Air Room Air Weight Weight: 237 lb 11.2 oz Body Mass Index (BMI) 39.5 Physical Exam Narrative Physical Examination: General: Awake, alert, oriented x 3, remains cooperative, laying in the ED bed, uncomfortable appearing, painful 10 out of 10 with any palpation or movement. Skin: Normal color, normal turgor, no icterus, no cyanosis except occasional staged ecchymoses, scarring to the abdomen from prior surgery. HEENT: AT/NC, EOMI, PERRLA, dry MM, no carotid bruits or JVD noted; however thickened neck makes evaluation difficult. Lungs: Diminished, greater bases, appropriate effort, no rales, ronchi or wheezing. Heart: Mildly tachycardic with regular rhythm; no gallop, rub audible. Abdomen: Soft, morbidly obese, significant discomfort to epigastric and right upper quadrant to palpation, mildly hyperactive BS, left lower quadrant ostomy in place with decent appearing tissue and stool output noted, difficult to discern distention and HSM given habitus and pain. Extremities: No cyanosis, no clubbing, no marked lower extremity edema despite history of significant right lower extremity VTE. Neurological: Patient awake, alert, oriented as noted, cognitive function intact; pupils equally reactive to light and accommodation, cranial nerves grossly normal, moving all 4 extremities, no focal deficits, strength severely globally decreased Psychiatric: Affect appears fatigued, uncomfortable, no acute evidence of depressive or anxiety feelings. Results Lab / Micro Data 10/28/23 09:45 10/28/23 09:45 Labs: Laboratory Results - last 24 hr 10/28/23 09:45: WBC 12.7 H, RBC 4.11 L, Hgb 12.0, Hct 37.0, MCV 90.0, MCH 29.2, MCHC 32.4, RDW Std Deviation 48.1 H, RDW Coeff of Deyvi 14.6, Plt Count 545 H, MPV 9.0, Immature Gran % (Auto) 0.900, Neut % (Auto) 84.3 H, Lymph % (Auto) 11.0 L, [place] % (Auto) 3.2, Eos % (Auto) 0.3, Baso % (Auto) 0.3, Absolute Neuts (auto) 10.7 H, Absolute Lymphs (auto) 1.40, Nucleated RBC % 0, Sodium 138, Potassium 3.2 L, Chloride 104, Carbon Dioxide 23.0, Anion Gap 11, BUN 12, Creatinine 1.29 H, Estim Creat Clear Calc 74.31, Est GFR (MDRD) Af Amer 60, Est GFR (MDRD) Non-Af 50 L, BUN/Creatinine Ratio 9.3 L, Glucose 159 H, Calcium 9.5, Total Bilirubin 0.30, Direct Bilirubin 0.15, AST 14 L, ALT 20, Alkaline Phosphatase 91, Total Protein 8.7 H, Albumin 3.1 L, Globulin 5.6 H, Lipase 22, Serum , Qual NEGATIVE 10/28/23 10:05: Urine Color Yellow, Urine Clarity Cloudy, Urine pH 6.0, Ur Specific [place] 1.020, Urine Protein 30 H, Urine Glucose (UA) Normal, Urine Ketones 5 H, Urine Occult Blood 250 H, Urine Nitrite Positive H, Urine Bilirubin Negative, Urine Urobilinogen Normal, Ur Leukocyte Esterase 500 H, Urine RBC 0 SEEN, Urine WBC >100 SEEN, Ur Squamous Epith Cells 25-50 SEEN, Urine Bacteria 2+, Urine Mucus 0 SEEN Imaging Radiology Impression Abdomen/Pelvis CT 10/28/23 11:00 IMPRESSION: Findings suggestive of acute cholecystitis with a stone in the neck of the gallbladder. Heterogeneous appearance of the upper pole of the left kidney as described. Pyelonephritis should BE ruled out. Diffuse fatty infiltration of the liver. A colostomy is seen in the left anterior abdominal wall. Electronically Signed: Vivek Gilmore MD at 12:00 EDT , Gallbladder Ultrasound 10/28/23 13:50 IMPRESSION: Gallbladder is distended with thickened wall at 5.5 mm. Small amount of pericholecystic fluid. Enlarged echogenic liver in keeping with fatty infiltration. CBD measures 7.3 mm. Electronically Signed: Vivek Gilmore MD at 15:28 EDT , Assessment & Plan Assessment/Plan (1) Acute cholecystitis: PLAN: Plan The patient is a 33 y/o F w/ PMHx: Morbid Obesity, PCOS, Hx Gestational Diabetes, Hx Chronic anemia, CKD stage II, Chronic constipation, Hx Perforated diverticular disease requiring extensive surgery with currently colostomy in place 05/2023, Unfortunately notable 06/2023 Postoperative RLE significant DVT eventually undergoing 07/26/2023 thrombectomy and angioplasty/stenting of the right external iliac vein concurrently following with vascular surgery Dr. Davis who presents to the [facility] ED on 10/28/23 with history of primarily right upper quadrant and epigastric discomfort that woke her from sleep the evening prior with onset of also nausea and emesis with inability to keep anything down over the day with some mild constipation prompting her to take some MiraLAX with loose stool following but given ongoing pain rated 10 out of 10 and worsening prompted eventual ED evaluation. #1. Acute Cholecystitis w/ abdominal pain, N/V: Will admit to medical surgical floor, general surgery will continue to follow pending transition to tertiary care facility once bed obtained as patient has already been accepted but there is no current availability, maintain on IVFs, NPO, PPI, IV/po pain control, will continue to trend CBC, CMP, will maintain on IV Zosyn therapy, given considerable recent VTE history as noted below will initiate baby aspirin to start today, hold Plavix, hold Eliquis therapy and transition to heparin drip with bolus with last dose of Eliquis 10/27/2019 4 PM. Case was discussed with patient's vascular surgeon Dr. Davis but will hold on consultation as patient is supposed to transition out in AM. #2. Questionable Acute Urinary Tract Infection: UA upon ED evaluation remarkable however it is a poor sample with squamous epithelial cells 25-50, pending UCx, continue IVFs, monitor I/Os, continue IV Zosyn given #1 w/ transition as able pending sensitivities and speciation and again could be falsely significant given it is a poor sample. May consider repeat urinalysis with straight catheterization. #3. Hx Postoperative RLE significant DVT: Patient following her extensive surgery 05/2023 eventually underwent 07/26/2023 thrombectomy and angioplasty/stenting of the right external iliac vein concurrently following with vascular surgery Dr. Davis with most recent evaluation 08/17/2023 with planned Eliquis x 1 year as well as Plavix and following this completion plan to transition then to aspirin and Plavix with aspirin indefinitely and follow-up duplex in 6 months. Discussed patient current presentation and need for operative intervention for cholecystectomy with Dr. Davis and at this time will hold Eliquis which patient last received 10/27/2023 evening and will continue baby aspirin starting today, hold Plavix and start heparin drip with bolus. Patient can have surgery with aspirin on board and continued and continue heparin drip until perioperative and then resume following with then transition back to NOAC once surgery is amenable. #4. Acute Renal Insufficiency on Chronic Kidney Disease Stage II: Admission BUN/Cr 06/10.29, GFR currently 50, previously since July however in the past had been in the 70 range, baseline renal function appears to more recently primarily be 1.0-1.1, will cautiously monitor with repeat BMP in AM. #5. Hypokalemia: Admission K+ 3.2, magnesium level requested, supplementation given, repeat level in AM. #6. History Chronic Anemia, currently MCV is normocytic but in the past patient has also been macrocytic: Admission hemoglobin 12, MCV 90, patient has previously in 2017 but in the 10 range and most recently 07/26/2023 hemoglobin 8.9 however this was following significant hospitalization with surgical intervention at that time, will continue to trend CBC. #7. History significant diverticular disease with perforation: Patient's status post extensive surgery 05/2023 eventually undergoing operative intervention now with colostomy, will continue routine care. #8. PCOS: Patient currently on injection medication for weight loss, given current presentation we will temporarily hold and may resume once allowed per general surgery following operative intervention. #9. Chronic constipation: Will cautiously continue patient bowel regimen and as needed agents as needed may be added. #10. History of gestational diabetes w/ Hyperglycemia: Admission glucose 159, possibly stress response, will obtain hemoglobin A1c to be cautious and if consistent with DM will initiate accu checks with [facility]. #11. Morbid Obesity: Weight loss and lifestyle changes encouraged. #12. DVT prophylaxis: Will continue heparin drip with bolus per discussion with vascular surgery. Charges/Coding Visit Charges Inpatient E&M: 30390 Init Hosp L3
[2023-10-28 20:42] LABS: International Normalized Ratio 1.3; Prothrombin Time (Protime)PT. 15.8 SECONDS (11.7-14.9)
[2023-10-28 20:44] LABS: Partial Thromboplast Time 33.5 Seconds (24.1-36.2)
[2023-10-28 20:50] LABS: Magnesium 1.8 mg/dL (1.6-2.6)
[2023-10-28] MEDS: 0.9% Normal Saline (1000mL) 1,000 ML 100 ML IV (21:49)
[2023-10-28] MEDS: Potassium Chloride Oral Tablet 20 MEQ 40 MEQ PO (21:49)
[2023-10-28] MEDS: Pantoprazole Sodium 40 MG in 0.9% Normal Saline (100mL MB+) 100 ML 330 MG IV (22:32)
[2023-10-28] MEDS: Heparin Injection (Vial) 5,000 UNIT/ML VIAL 8000 UNIT IV (22:41)
[2023-10-28] MEDS: HEPARIN/D5w 25,000 UNITS 25,000 UNITS/250 ML IV.SOLN. 15 UNITS CONT INF (22:42)
[2023-10-28] MEDS: Polyethylene Glycol 3350 17 GM PACKET PO (22:47)
[2023-10-28] MEDS: Acetaminophen 325 MG Tablet 650 MG PO (22:52)
[2023-10-28] MEDS: oxyCODONE 5 MG Tablet PO (22:53)
[2023-10-29] VITALS (7 sets, daily range): BP systolic 99–114; BP diastolic 59–70; PULSE 99–104; RESP 16–18; TEMP 36.4–37.8; O2SAT 92–98; BMI 39.8
[2023-10-29] MEDS: HYDROmorphone 0.5 MG/0.5 ML SYRINGE IV ×4 (00:37→14:10)
[2023-10-29] MEDS: Acetaminophen 325 MG Tablet 650 MG PO ×2 (02:59→13:33)
[2023-10-29] MEDS: oxyCODONE 5 MG Tablet PO (02:59)
[2023-10-29] MEDS: Ondansetron 4 MG/2 ML Vial IV (03:03)
[2023-10-29] MEDS: 0.9% Saline Lock 10 ML Syringe IV ×2 (04:00→06:41)
[2023-10-29 05:27] LABS: Absolute Lymphocyte Count 0.88 X10^3/uL (0.83-4.51); Absolute Neutrophil Count 17.6 X10^3/uL (2.0-7.7); Basophil# 0.04 X10^3/uL; Basophil% 0.2 % (0-1); Eosinophil# 0.04 X10^3/uL; Eosinophils% 0.2 % (0-5); Hematocrit 31.8 % (37-47); Hemoglobin 10.2 g/dL (12.0-15.0); Lymphocyte # 0.88 X10^3/ul (0.83-4.51); Lymphocyte % 4.5 % (19-41); Mean Corp Hgb Conc 32.1 g/dL (32-36); Mean Corpuscular Hgb 29.1 pg (27.0-32.0); Mean Corpuscular Volume 90.9 fL (81-99); Mean Platelet Vol. 8.9 fl (6.2-12.0); Monocyte# 1.09 X10^3/uL; Monocyte% 5.5 % (0-10); NRBC Flagged by Analyzer 0 % (0-5); Neutrophil # 17.55 X10^3/uL (2.7-7.7); Neutrophil % 88.9 % (47-70); Platelet Count 388 K/mm3 (150-450); RBC Distribution Width CV 14.9 % (11.6-14.6); RBC Distribution Width SD 49.8 fl (35.1-43.9); White Blood Count 19.7 K/mm3 (4.4-11.0)
[2023-10-29 05:37] LABS: Partial Thromboplast Time 71.1 Seconds (24.1-36.2)
[2023-10-29 05:49] LABS: ALB/GLOB Ratio 0.5 RATIO (0.9-2.4); AST(SGOT) 28 U/L (15-37); Alanine Aminotransfer ALT/SGPT 49 U/L (13-56); Albumin, Serum 2.3 g/dL (3.2-5.0); Alkaline Phosphatase 109 U/L (45-117); Anion Gap 5 (5-15); BUN 9 mg/dL (7-18); Chloride 112 mmol/L (98-107); Creatinine, Serum 1.13 mg/dL (0.55-1.02); EST Glomerular Filtration Rate 58 mL/min (>60); Est Glom Filt Rate - Afr Amer 70 mL/min (>60); Estimated Creatinine Clearance 85.13 ml/min; Globulin 4.3 g/dL (2.2-4.2); Glucose 111 mg/dL (74-106); Potassium 3.5 mmol/L (3.5-5.1); Protein, Total 6.6 g/dL (6.4-8.2); Sodium Level 139 mmol/L (136-145)
[2023-10-29] MEDS: Piperacil/Tazobactam 3.375 GM in 0.9% Normal Saline (50mL MB+) 50 ML IV ×2 (06:42→13:31)
[2023-10-29] MEDS: 0.9% Normal Saline (1000mL) 1,000 ML 100 ML IV ×2 (06:43→15:56)
--- NOTE | 2023-10-29 06:53 | PN.HOSP_ITS ---
Reason for Visit Reason for Visit: Diagnoses Acute cholecystitis (10/28/23) Subjective Subjective Patient notes evening prior she still had pain with some adjustments to the pain medication is now improved but her pain is coming back currently as she only recently had some medication and rates her abdominal discomfort still primarily epigastric and right upper quadrant as 8 out of 10 in severity, dull aching and sharp discomfort. Discussed possibility of altering pain medication further and patient prefers to wait. No current nausea or emesis. Discussed with patient and family her underlying medical history including possible underlying kidney disease as GFR and function was reviewed. Discussed patient is still awaiting a tertiary facility bed and that surgery Dr. Henry has waitlisted the patient at 2 different facilities. Patient denies fevers, chills, nausea, emesis, chest pain or dyspnea. Objective Data Objective Data Vital Signs: Vital Signs Temp Pulse Resp BP Pulse Ox O2 Del Method 97.5 F L 104 H 18 114/70 98 Room Air 10/29/23 03:04 10/29/23 03:04 10/29/23 03:04 10/29/23 03:04 10/29/23 03:04 10/29/23 03:05 Oxygen Delivery Method Room Air Weight: 239 lb 3.225 oz Body Mass Index (BMI) 39.8 Intake & Output: Intake and Output for Last 24 Hours 10/27/23 10/28/23 10/29/23 23:59 23:59 23:59 Intake Total 1160 / 1160 1045.75 / 1045.75 Balance 1160 / 1160 1045.75 / 1045.75 Lab / Micro Data 10/29/23 05:10 10/29/23 05:10 Labs: Laboratory Results - last 24 hr 10/28/23 09:45: WBC 12.7 H, RBC 4.11 L, Hgb 12.0, Hct 37.0, MCV 90.0, MCH 29.2, MCHC 32.4, RDW Std Deviation 48.1 H, RDW Coeff of Deyvi 14.6, Plt Count 545 H, MPV 9.0, Immature Gran % (Auto) 0.900, Neut % (Auto) 84.3 H, Lymph % (Auto) 11.0 L, [place] % (Auto) 3.2, Eos % (Auto) 0.3, Baso % (Auto) 0.3, Absolute Neuts (auto) 10.7 H, Absolute Lymphs (auto) 1.40, Nucleated RBC % 0, Sodium 138, Potassium 3.2 L, Chloride 104, Carbon Dioxide 23.0, Anion Gap 11, BUN 12, Creatinine 1.29 H, Estim Creat Clear Calc 74.31, Est GFR (MDRD) Af Amer 60, Est GFR (MDRD) Non- Af 50 L, BUN/Creatinine Ratio 9.3 L, Glucose 159 H, Calcium 9.5, Total Bilirubin 0.30, Direct Bilirubin 0.15, AST 14 L, ALT 20, Alkaline Phosphatase 91, Total Protein 8.7 H, Albumin 3.1 L, Globulin 5.6 H, Lipase 22, Serum , Qual NEGATIVE 10/28/23 10:05: Urine Color Yellow, Urine Clarity Cloudy, Urine pH 6.0, Ur Specific [place] 1.020, Urine Protein 30 H, Urine Glucose (UA) Normal, Urine Ketones 5 H, Urine Occult Blood 250 H, Urine Nitrite Positive H, Urine Bilirubin Negative, Urine Urobilinogen Normal, Ur Leukocyte Esterase 500 H, Urine RBC 0 SEEN, Urine WBC >100 SEEN, Ur Squamous Epith Cells 25-50 SEEN, Urine Bacteria 2+, Urine Mucus 0 SEEN 10/28/23 20:24: PT 15.8 H, INR 1.3, APTT 33.5, Magnesium 1.8 10/29/23 05:05: APTT 71.1 H 10/29/23 05:10: WBC 19.7 H, RBC 3.50 L, Hgb 10.2 L, Hct 31.8 L, MCV 90.9, MCH 29.1, MCHC 32.1, RDW Std Deviation 49.8 H, RDW Coeff of Deyvi 14.9 H, Plt Count 388, MPV 8.9, Immature Gran % (Auto) 0.700, Neut % (Auto) 88.9 H, Lymph % (Auto) 4.5 L, [place] % (Auto) 5.5, Eos % (Auto) 0.2, Baso % (Auto) 0.2, Absolute Neuts (auto) 17.6 H, Absolute Lymphs (auto) 0.88, Nucleated RBC % 0, Sodium 139, Potassium 3.5, Chloride 112 H, Carbon Dioxide 22.0, Anion Gap 5, BUN 9, Creatinine 1.13 H, Estim Creat Clear Calc 85.13, Est GFR (MDRD) Af Amer 70, Est GFR (MDRD) Non-Af 58 L, BUN/Creatinine Ratio 8.0 L, Glucose 111 H, Calcium 8.0 L , Total Bilirubin 0.70, AST 28, ALT 49, Alkaline Phosphatase 109, Total Protein 6.6, Albumin 2.3 L, Globulin 4.3 H, Albumin/Globulin Ratio 0.5 L Radiography Diagnostic Testing: Radiology Impression Abdomen/Pelvis CT 10/28/23 11:00 IMPRESSION: Findings suggestive of acute cholecystitis with a stone in the neck of the gallbladder. Heterogeneous appearance of the upper pole of the left kidney as described. Pyelonephritis should BE ruled out. Diffuse fatty infiltration of the liver. A colostomy is seen in the left anterior abdominal wall. Electronically Signed: Vivek Gilmore MD at 12:00 EDT , Gallbladder Ultrasound 10/28/23 13:50 IMPRESSION: Gallbladder is distended with thickened wall at 5.5 mm. Small amount of pericholecystic fluid. Enlarged echogenic liver in keeping with fatty infiltration. CBD measures 7.3 mm. Electronically Signed: Vivek Gilmore MD at 15:28 EDT , Physical Exam Narrative Physical Examination: General: Awake, alert, oriented x 3, remains cooperative, laying in the MS bed, fatigued but more comfortable appearing than presentation. Skin: Normal color, normal turgor, no icterus, no cyanosis except occasional staged ecchymoses, scarring to the abdomen from prior surgery. HEENT: AT/NC, EOMI, PERRLA, dry MM. Lungs: Diminished, greater bases, appropriate effort, no rales, ronchi or wheezing. Heart: Improved, currently regular rate and regular rhythm; no gallop, rub audible. Abdomen: Soft, morbidly obese, persistent discomfort to epigastric and right upper quadrant to palpation, mildly hyperactive BS, left lower quadrant ostomy in place. Extremities: No cyanosis, no clubbing, no marked lower extremity edema despite history of significant right lower extremity VTE. Neurological: Patient awake, alert, oriented as noted, cognitive function intact; pupils equally reactive to light and accommodation, cranial nerves grossly normal, moving all 4 extremities, no focal deficits, strength moderately to severely globally decreased secondary to pain. Psychiatric: Affect appears fatigued, no acute evidence of depressive or anxiety feelings. Assessment & Plan Assessment/Plan (1) Acute cholecystitis: PLAN: Plan The patient is a 33 y/o F w/ PMHx: Morbid Obesity, PCOS, Hx Gestational Diabetes, Hx Chronic anemia, CKD stage II, Chronic constipation, Hx Perforated diverticular disease requiring extensive surgery with currently colostomy in place 05/2023, Unfortunately notable 06/2023 Postoperative RLE significant DVT eventually undergoing 07/26/2023 thrombectomy and angioplasty/stenting of the right external iliac vein concurrently following with vascular surgery Dr. Davis who presents to the [facility] on 10/28/23 with history of primarily right upper quadrant and epigastric discomfort that woke her from sleep the evening prior with onset of also nausea and emesis with inability to keep anything down over the day with some mild constipation prompting her to take some MiraLAX with loose stool following but given ongoing pain rated 10 out of 10 and worsening prompted eventual ED evaluation. #1. Acute Cholecystitis w/ abdominal pain, N/V: Given no bed at tertiary facility although currently now wait listed at 2 facilitys per General surgery direction, admitted to medical surgical floor, general surgery consulted pending ability for tertiary facility transfer, maintain on IVFs, NPO, PPI, IV/po pain control, will continue to trend CBC, CMP, will maintain on IV Zosyn therapy, given considerable recent VTE history initiated 10/28/2023 baby aspirin, holding Plavix, holding Eliquis therapy and 10/28/2023 transitioned to heparin drip with bolus upon admission with last dose of Eliquis 10/27/2019 4 PM. Case was discussed with patient's vascular surgeon Dr. Davis but will hold on consultation as patient is supposed to transition out in AM. 10/29/2023 CBC with WBC 19.7, with left shift. CMP unremarkable. #2. Questionable Acute Urinary Tract Infection: UA upon ED evaluation remarkable however it is a poor sample with squamous epithelial cells 25-50, pending UCx, continue IVFs, monitor I/Os, continue IV Zosyn given #1 w/ transition as able pending sensitivities and speciation and again could be falsely significant given it is a poor sample. May consider repeat urinalysis with straight catheterization. #3. Hx Postoperative RLE significant DVT: Patient following her extensive surg kate 05/2023 eventually underwent 07/26/2023 thrombectomy and angioplasty/stenting of the right external iliac vein concurrently following with vascular surgery Dr. Davis with most recent evaluation 08/17/2023 with planned Eliquis x 1 year as well as Plavix and following this completion plan to transition then to aspirin and Plavix with aspirin indefinitely and follow-up duplex in 6 months. Discusse d patient current presentation and need for operative intervention for cholecystectomy with Dr. Davis. Initiated 10/28/2023 baby aspirin, holding Plavix, holding Eliquis therapy and 10/28/2023 transitioned to heparin drip with bolus upon admission with last dose of Eliquis 10/27/2019 4 PM. Patient can have surgery with aspirin on board and continued and continue heparin drip until perioperative and then resume following with then transition back to NOAC once surgery is amenable. #4. Acute Mild Renal Insufficiency on Chronic Kidney Disease Stage II: Suspect likely secondary to #1, poor intake, GI losses. Admission BUN/Cr 12/1.29, GFR currently 50, previously since July however in the past had been in the 70 range, baseline renal function appears to more recently primarily be 1.0-1.1, 10/29/2023 BUN/creatinine 9/1.13, GFR 58. #5. Hypokalemia: Admission K+ 3.2, magnesium 1.8, supplementation given, 10/29/2023 potassium 3.5, continue to monitor. #6. History Chronic Anemia, currently MCV is normocytic but in the past patient has also been macrocytic: Admission hemoglobin 12, MCV 90, patient has previously in 2017 but in the 10 range and most recently 07/26/2023 hemoglobin 8.9 however this was following significant hospitalization with surgical intervention at that time, 10/29/2023 hemoglobin 10.2, MCV 90.9, continue to trend. #7. History significant diverticular disease with perforation: Patient's status post extensive surgery 05/2023 eventually undergoing operative intervention now with colostomy, will continue routine care. #8. PCOS: Patient currently on injection medication for weight loss, given current presentation we will temporarily hold and may resume once allowed per general surgery following operative intervention. #9. Chronic constipation: Will cautiously continue patient bowel regimen and as needed agents as needed may be added. #10. History of gestational diabetes w/ Hyperglycemia: Admission glucose 159, possibly stress response, pending hemoglobin A1c to be cautious and if consistent with DM will initiate accu checks with ISS. #11. Morbid Obesity: Weight loss and lifestyle changes encouraged. #12. DVT prophylaxis: Will continue heparin drip with bolus per discussion with vascular surgery. Charges/Coding Visit Charges Inpatient E&M: 84437 Init Hosp L2
[2023-10-29 07:19] LABS: Hemoglobin A1c 5.2 % (3.8-5.6)
--- NOTE | 2023-10-29 07:19 | CON.PCM.SX_ITS ---
Assessment & Plan Assessment/Plan (1) Acute cholecystitis: (2) Deep vein thrombosis (DVT) of right lower extremity: QUALIFIERS: Affected thrombotic vein of extremity: femoral Chronicity: acute Qualified Code(s): I82.411 - Acute embolism and thrombosis of right femoral vein PLAN: jul 2023- s/p percutaneous thrombectomy-right common femoral--recommend eliquis & plavix for 1 year PLAN: Plan awaiting transfer bed to - no IR here over weekend and recommend surgery at [facility] due to anticoagulation-limited availability to get blood products here. npo/ivf hep gtt due to hx of DVT RLE WBC up to 19 on Zosyn Pt has been accepted at [facility]- will see who has bed availablity first- both should be today. Aylin Henry M.D. Pager: [phone] [facility] [address] [place] [address], [facility], [address] [place] [address] Office: [phone] HPI Consult Data Date of Consult: 10/29/23 HPI Narrative HPI Narrative: OMA SPAIN, is a 33 F who presents ER due to RUQ pain starting Tuesday AM w N/V. Pt previously states she had stomach flu this week w n/v/fever which she had last month for for 4 days which resolved. Patient does have a history perforated diverticulitis status post colostomy May 2023 at [facility]. Patient also had a significant right lower extremity DVT?right common femoral?status post percutaneous thrombectomy in July 2023 and placed on Eliquis and Plavix. CT abdomen pelvis showed a stone in the neck of the gallbladder. Ultrasound done showed a thickened wall at 5 mm the gallbladder is not seen on ultrasound there is pericholecystic fluid and positive Nickerson sign. Patient white blood count 12.7 on admit currently 19. Patient's LFTs are still within normal limits. Patient still continues to have right upper quadrant pain on Dilaudid. Patient has been on Zosyn IV. Awaiting a transfer bed to [facility] due to patient's anticoagulation. [facility] Medical History CKD (chronic kidney disease), stage II GERD (gastroesophageal reflux disease) Goiter History of anemia History of gestational diabetes IBS (irritable bowel syndrome) Insulin resistance Metabolic syndrome Morbid obesity PCOS (polycystic ovarian syndrome) Home Medications acetaminophen 500 mg tablet 500 - 1,000 mg PO Q6H PRN Mild Pain (-09/17) 10/14/16 [History Last Taken 10/17/16] apixaban 5 mg tablet (Eliquis) 5 mg PO BID #60 tabs 07/14/23 [Rx Last Taken 10/27/23] docusate sodium 100 mg capsule 100 mg PO BID constipation 07/25/23 [History Last Taken 10/27/23] melatonin 3 mg tablet 3 mg PO QHS insomni 07/25/23 [History Last Taken 10/27/23] polyethylene glycol 3350 17 gram/dose oral powder (Powderlax) 17 g PO BID constipation 07/25/23 [History Last Taken 10/27/23] clopidogrel 75 mg tablet (Plavix) 75 mg PO DAILY #30 tabs 07/27/23 [Rx Last Taken 10/26/23] hydrocolloid dressing 4 X 5 (Aquacel Extra) #10 ea 08/03/23 [Rx Last Taken Unknown] hydrocolloid dressing 6 X 6 (Comfeel Plus Clear Dressing) #5 ea 08/03/23 [Rx Last Taken Unknown] ondansetron 4 mg disintegrating tablet 8 mg PO Q8H PRN Nausea 10/28/23 [History Last Taken Unknown] tirzepatide 2.5 mg/0.5 mL subcutaneous pen injector 2.5 mg subcut MO 10/28/23 [History Last Taken 10/24/23] Allergy/AdvReac Type Severity Reaction Status Date / Time No Known Allergies Allergy Verified 10/28/23 09:16 Family History (Updated 10/28/23 @ 19:[address] Magui Barnes MD) Mother Hypertension Father VTE (venous thromboembolism) Hx VTE after COVID. Other Autoimmune disease Cancer Graves disease Thyroid disorder Surgical History History of colon surgery (~05/2023) History of vascular surgery S/P colostomy Social History (Updated 10/28/23 @ 19:[address] Magui Barnes MD) household members: family Smoking Status: Never smoker alcohol intake: current alcohol intake frequency: holidays/special occasions only details: drank a couple weeks a week substance use type: does not use frequency: 1-2 times per week ROS Constitutional Constitutional: Reports anorexia; Denies fever(s) Eyes Eyes: Denies blurry vision ENT HEENT: Denies dysphagia Cardiovascular Cardiovascular: Denies chest pain Respiratory/Chest Respiratory/Chest: Denies cough Gastrointestinal Gastrointestinal: Reports abdominal pain, diarrhea, nausea and vomiting; Denies constipation Genitourinary Genitourinary: Denies urinary incontinence Musculoskeletal Musculoskeletal: Denies joint swelling Integumentary Integumentary: Denies jaundice Neurologic Neurologic: Denies focal weakness Hematologic/Lymphatic Hematologic/Lymphatic: Reports easy bleeding and easy bruising Physical Exam Const alert and oriented x3 General Appearance: ill appearing HEENT normocephalic Resp normal respiratory effort Cardio Rate: regular rate GI Negative for non-distended Inspection: ostomy present Palpation: tender RUQ (+ rebound) and Nickerson's sign; Negative for guarding Lab / Micro Data 10/29/23 05:10 10/29/23 05:10 Labs: Laboratory Results - last 24 hr 10/28/23 09:45: WBC 12.7 H, RBC 4.11 L, Hgb 12.0, Hct 37.0, MCV 90.0, MCH 29.2, MCHC 32.4, RDW Std Deviation 48.1 H, RDW Coeff of Deyvi 14.6, Plt Count 545 H, MPV 9.0, Immature Gran % (Auto) 0.900, Neut % (Auto) 84.3 H, Lymph % (Auto) 11.0 L, [place] % (Auto) 3.2, Eos % (Auto) 0.3, Baso % (Auto) 0.3, Absolute Neuts (auto) 10.7 H, Absolute Lymphs (auto) 1.40, Nucleated RBC % 0, Sodium 138, Potassium 3.2 L, Chloride 104, Carbon Dioxide 23.0, Anion Gap 11, BUN 12, Creatinine 1.29 H, Estim Creat Clear Calc 74.31, Est GFR (MDRD) Af Amer 60, Est GFR (MDRD) Non- Af 50 L, BUN/Creatinine Ratio 9.3 L, Glucose 159 H, Calcium 9.5, Total Bilirubin 0.30, Direct Bilirubin 0.15, AST 14 L, ALT 20, Alkaline Phosphatase 91, Total Protein 8.7 H, Albumin 3.1 L, Globulin 5.6 H, Lipase 22, Serum , Qual NEGATIVE 10/28/23 10:05: Urine Color Yellow, Urine Clarity Cloudy, Urine pH 6.0, Ur Specific [place] 1.020, Urine Protein 30 H, Urine Glucose (UA) Normal, Urine Ketones 5 H, Urine Occult Blood 250 H, Urine Nitrite Positive H, Urine Bilirubin Negative, Urine Urobilinogen Normal, Ur Leukocyte Esterase 500 H, Urine RBC 0 SEEN, Urine WBC >100 SEEN, Ur Squamous Epith Cells 25-50 SEEN, Urine Bacteria 2+, Urine Mucus 0 SEEN 10/28/23 20:24: PT 15.8 H, INR 1.3, APTT 33.5, Magnesium 1.8 10/29/23 05:05: APTT 71.1 H 10/29/23 05:10: WBC 19.7 H, RBC 3.50 L, Hgb 10.2 L, Hct 31.8 L, MCV 90.9, MCH 29.1, MCHC 32.1, RDW Std Deviation 49.8 H, RDW Coeff of Deyvi 14.9 H, Plt Count 388, MPV 8.9, Immature Gran % (Auto) 0.700, Neut % (Auto) 88.9 H, Lymph % (Auto) 4.5 L, [place] % (Auto) 5.5, Eos % (Auto) 0.2, Baso % (Auto) 0.2, Absolute Neuts (auto) 17.6 H, Absolute Lymphs (auto) 0.88, Nucleated RBC % 0, Sodium 139, Potassium 3.5, Chloride 112 H, Carbon Dioxide 22.0, Anion Gap 5, BUN 9, Creat inine 1.13 H, Estim Creat Clear Calc 85.13, Est GFR (MDRD) Af Amer 70, Est GFR (MDRD) Non-Af 58 L, BUN/Creatinine Ratio 8.0 L, Glucose 111 H, Hemoglobin A1c 5.2, Calcium 8.0 L, Total Bilirubin 0.70, AST 28, ALT 49, Alkaline Phosphatase 109, Total Protein 6.6, Albumin 2.3 L, Globulin 4.3 H, Albumin/Globulin Ratio 0.5 L Imaging Radiology Impression Abdomen/Pelvis CT 10/28/23 11:00 IMPRESSION: Findings suggestive of acute cholecystitis with a stone in the neck of the gallbladder. Heterogeneous appearance of the upper pole of the left kidney as described. Pyelonephritis should BE ruled out. Diffuse fatty infiltration of the liver. A colostomy is seen in the left anterior abdominal wall. Electronically Signed: Vivek Gilmore MD at 12:00 EDT , Gallbladder Ultrasound 10/28/23 13:50 IMPRESSION: Gallbladder is distended with thickened wall at 5.5 mm. Small amount of pericholecystic fluid. Enlarged echogenic liver in keeping with fatty infiltration. CBD measures 7.3 mm. Electronically Signed: Vivek Gilmore MD at 15:28 EDT , Charges/Coding Visit Charges Inpatient E&M: 49158 Init Hosp L3
[2023-10-29] MEDS: HYDROmorphone 1 MG/ML Syringe IV ×4 (08:04→16:20)
[2023-10-29] MEDS: Pantoprazole Sodium 40 MG in 0.9% Normal Saline (100mL MB+) 100 ML 330 MG IV (10:49)
--- NOTE | 2023-10-29 11:58 | CASEMGMT ---
Pt awaiting transfer to a tertiary facility. Montserrat Bear MSN, RN, CCM
[2023-10-29 12:43] LABS: Partial Thromboplast Time 69.2 Seconds (24.1-36.2)
--- NOTE | 2023-10-29 14:42 | PCM.DC.SUM ---
Providers Date of Admission: 10/28/23 Date of Discharge: 10/29/23 Primary Care Physician: Dr. Trang Quintero MD Consultations 10/28/23 20:50 Consult: General Surgery Routine Consulting Provider: Aylin Henry Reason for Consult: Acute cholecystitis EMERGENT Consult: No MD Notified: Yes Date Notified: 10/28/23 Time Notified: 19:20 Method of Notification: ED Physician Initiated Reason For Visit: ACUTE CHOLECYSTITIS Diagnosis Discharge Diagnosis (1) Acute cholecystitis: Status: Acute Code(s): K81.0 - Acute cholecystitis (2) Deep vein thrombosis (DVT) of right lower extremity: Status: Acute Code(s): I82.401 - Acute embolism and thrombosis of unspecified deep veins of right lower extremity Qualifiers: Affected thrombotic vein of extremity: femoral Chronicity: acute Qualified Code(s): I82.411 - Acute embolism and thrombosis of right femoral vein Plan: DISCHARGE DIAGNOSES: #1. Acute Cholecystitis w/ abdominal pain, N/V #2. Questionable Acute Urinary Tract Infection, unclear organism (UCx pending on transfer) #3. Hx Postoperative RLE significant DVT s/p thrombectomy and angioplasty/PCI 07/26/23 #4. Acute Mild Renal Insufficiency on Chronic Kidney Disease Stage II from review of GFR trending #5. Hypokalemia #6. History Chronic Anemia, current presentation MCV normocytic but in the past patient has also been macrocytic #7. History significant diverticular disease with perforation w/ ostomy in place #8. PCOS #9. Chronic constipation #10. History of gestational diabetes w/ Hyperglycemia (HgbA1c checked, 5.2%) #11. Morbid Obesity Medications at Discharge Home Medications acetaminophen 500 mg tablet 500 - 1,000 mg PO Q6H PRN Mild Pain (1-09/17) 10/14/16 apixaban 5 mg tablet (Eliquis) 5 mg PO BID #60 tabs 07/14/23 docusate sodium 100 mg capsule 100 mg PO BID constipation 07/25/23 melatonin 3 mg tablet 3 mg PO QHS insomni 07/25/23 polyethylene glycol 3350 17 gram/dose oral powder (Powderlax) 17 g PO BID constipation 07/25/23 clopidogrel 75 mg tablet (Plavix) 75 mg PO DAILY #30 tabs 07/27/23 hydrocolloid dressing 4 X 5 (Aquacel Extra) #10 ea 08/03/23 hydrocolloid dressing 6 X 6 (Comfeel Plus Clear Dressing) #5 ea 08/03/23 ondansetron 4 mg disintegrating tablet 8 mg PO Q8H PRN Nausea 10/28/23 tirzepatide 2.5 mg/0.5 mL subcutaneous pen injector 2.5 mg subcut MO 10/28/23 Hospital Course Operations None Procedures EKG Summary of Care Provided Minutes Spent on Discharge: 35 Hospital Course: The patient is a 33 y/o F w/ PMHx: Morbid Obesity, PCOS, Hx Gestational Diabetes, Hx Chronic anemia, CKD stage II, Chronic constipation, Hx Perforated diverticular disease requiring extensive surgery with currently colostomy in place 05/2023, Unfortunately notable 06/2023 Postoperative RLE significant DVT eventually undergoing 07/26/2023 thrombectomy and angioplasty/stenting of the right external iliac vein concurrently following with vascular surgery Dr. Davis who presented to the [facility] ED on 10/28/23 with history of primarily right upper quadrant and epigastric discomfort that woke her from sleep the evening prior with onset of also nausea and emesis with inability to keep anything down over the day with some mild constipation prompting her to take some MiraLAX with loose stool following but given ongoing pain rated 10 out of 10 and worsening prompted eventual ED evaluation. Given no bed at tertiary facility until transfer bed obtained, patient was admitted to medical surgical floor, general surgery consulted pending ability for tertiary facility transfer, maintain on IVFs, NPO, PPI, IV/po pain control, maintained on IV Zosyn therapy, given considerable recent VTE history initiated 10/28/2023 baby aspirin, holding Plavix, holding Eliquis therapy and 10/28/2023 transitioned to heparin drip with bolus upon admission with last dose of Eliquis 10/27/2019 4 PM per discussion with her vascular surgeon Dr. Davis. 10/29/2023 CBC with WBC 19.7, with left shift. 10/29/23 CMP unremarkable. UA upon ED evaluation remarkable however it is a poor sample with squamous epithelial cells 25-50, pending UCx at transition to tertiary facility. During admission noted mild renal insufficiency on suspected underlying Chronic Kidney Disease Stage II based on GFR trending from prior labs. Suspected insufficiency likely secondary to poor intake, GI losses with acute presentation. Admission BUN/Cr 06/10.29, GFR 50, previously since July 11/2024 GFR 60 however in the past had been in the 70 range, baseline renal function appears to more recently primarily be 1.0-1.1, 10/29/2023 BUN/creatinine 9/1.13, GFR 58. Admission hemoglobin 12, MCV 90, patient has previously in 2017 but in the 10 range and most recently 07/26/2023 hemoglobin 8.9 however this was following significant hospitalization with surgical intervention at that time, 10/29/2023 hemoglobin 10.2, MCV 90.9 following hydration. During admission patient with hyperglycemia, HgBA1c obtained to be cautious (5.2%). Patient bed obtained at tertiary facility with Surgeon discussions also with [facility] Surgeon Dr. Henry regarding heparin drip continuation as well. Weight / BMI Weight Weight: 239 lb 3.225 oz Body Mass Index (BMI) 39.8 ABG / Lab / Microbiology Data 10/29/23 05:10 10/29/23 05:10 Laboratory: Laboratory Results - last 24 hr 10/28/23 20:24: PT 15.8 H, INR 1.3, APTT 33.5, Magnesium 1.8 10/29/23 05:05: APTT 71.1 H 10/29/23 05:10: WBC 19.7 H, RBC 3.50 L, Hgb 10.2 L, Hct 31.8 L, MCV 90.9, MCH 29.1, MCHC 32.1, RDW Std Deviation 49.8 H, RDW Coeff of Deyvi 14.9 H, Plt Count 388, MPV 8.9, Immature Gran % (Auto) 0.700, Neut % (Auto) 88.9 H, Lymph % (Auto) 4.5 L, [place] % (Auto) 5.5, Eos % (Auto) 0.2, Baso % (Auto) 0.2, Absolute Neuts (auto) 17.6 H, Absolute Lymphs (auto) 0.88, Nucleated RBC % 0, Sodium 139, Potassium 3.5, Chloride 112 H, Carbon Dioxide 22.0, Anion Gap 5, BUN 9, Creatinine 1.13 H, Estim Creat Clear Calc 85.13, Est GFR (MDRD) Af Amer 70, Est GFR (MDRD) Non-Af 58 L, BUN/Creatinine Ratio 8.0 L, Glucose 111 H, Hemoglobin A1c 5.2, Calcium 8.0 L, Total Bilirubin 0.70, AST 28, ALT 49, Alkaline Phosphatase 109, Total Protein 6.6, Albumin 2.3 L, Globulin 4.3 H, Albumin/Globulin Ratio 0.5 L 10/29/23 11:58: APTT 69.2 H Radiography Diagnostic Testing: Radiology Impression Gallbladder Ultrasound 10/28/23 13:50 IMPRESSION: Gallbladder is distended with thickened wall at 5.5 mm. Small amount of pericholecystic fluid. Enlarged echogenic liver in keeping with fatty infiltration. CBD measures 7.3 mm. Electronically Signed: Vivek Gilmore MD at 15:28 EDT , Meaningful Use Info Meaningful Use Meaningful Use Diagnoses (Choose all that apply): None applicable Ischemic Stroke Statin Dosing Therapy Reference: STATIN DOSE THERAPY REFERENCE: * Patients > 75 years receive moderate or high dose statin therapy. * Patients 75 years or YOUNGER should receive HIGH intensity statin dose unless contraindicated. You will be required to document reason for non-treatment if statin daily dose does not meet guidelines. HIGH DOSE STATIN THERAPY DAILY Atorvastatin > than or = to 40 mg Rosuvastatin > than or = to 20 mg Amlodipine + Atorvastatin > than or = to 2.5/40 mg Ezetimibe + Simvastatin 10/80 mg Simvastatin 80mg Discharge Plan Admission Admit Date/Time: 10/28/23 19:14 Primary Reason for Your Visit: Acute Cholecystitis, complicated by recent RLE VTE Hx s/p thrombectomy Attending Provider: Magui Barnes Primary Care Provider: Trang Quintero Consulting Providers: Aylin Henry Discharge Orders/Prescriptions Prescriptions: No Action Eliquis 5 mg tablet 5 mg PO BID Qty: 60 5RF (DME) Aquacel Extra 4 X 5 bandage See Rx Instructions .Route Qty: 10 2RF Rx Instructions: As directed (DME) hydrocolloid dressing [Comfeel Plus Clear Dressing] 6 X 6 bandage See Rx Instructions .Route Qty: 5 4RF Rx Instructions: As directed acetaminophen 500 MG tablet 500 - 1,000 mg PO Q6H PRN (Reason: Mild Pain (1-3/10)) melatonin 3 mg tablet 3 mg PO QHS docusate sodium 100 mg capsule 100 mg PO BID Patient Comments: Pt says she takes them at 8am and 8pm polyethylene glycol 3350 [Powderlax] 17 gram/dose powder 17 g PO BID clopidogrel [Plavix] 75 mg tablet 75 mg PO DAILY Qty: 30 11RF tirzepatide 2.5 mg/0.5 mL pen injector 2.5 mg subcut MO ondansetron 4 mg tablet,disintegrating 8 mg PO Q8H PRN (Reason: Nausea) Referrals / Follow Up: Trang Quintero MD [Primary Care Provider] - Disposition Disposition (needs filled in before D/C Order can be placed): Acute Care Hospital Charges/Coding Visit Charges Inpatient E&M: 44970 Disch Hosp >30min
--- NOTE | 2023-10-29 15:02 | NURSING ---
called report to [facility].
[2023-10-29] MEDS: HEPARIN/D5w 25,000 UNITS 25,000 UNITS/250 ML IV.SOLN. 15 UNITS CONT INF (15:12)
--- NOTE | 2023-10-29 16:59 | NURSING ---
pt transferred with heparin, saline and zosyn running
== END 2023-10-29 17:36 | disposition short-term general hospital (02) ==
LOC: ED 19:14 → MS3 10-29 14:51
PROVIDERS: Physician Assistant; Admitting Provider Family Medicine; Emergency Provider Emergency Medicine; PCP Internal Medicine; Visit Provider Family Medicine
DX: K81.0 Acute cholecystitis (principal); Z93.3 Colostomy status; I82.411 Acute embolism and thrombosis of right femoral vein; E66.01 Morbid (severe) obesity due to excess calories; D64.9 Anemia, unspecified; E87.6 Hypokalemia; N18.2 Chronic kidney disease, stage 2 (mild); K58.9 Irritable bowel syndrome, unspecified; E28.2 Polycystic ovarian syndrome; Z79.02 Long term (current) use of antithrombotics/antiplatelets; Z79.01 Long term (current) use of anticoagulants; Z79.84 Long term (current) use of oral hypoglycemic drugs; Z68.39 Body mass index [BMI] 39.0-39.9, adult; K21.9 Gastro-esophageal reflux disease without esophagitis
CPT/HCPCS: J3490 ×2; 36415; 74177; 76705; 80048; 80053; 80076; 81001; 83036; 83690; 83735; 84703; 85025; 85610; 85730; 96365; 96366; 96368; 96375; 96376; 99221; 99284; J7030; Q9967; A4216; G0378; J2405

== ENCOUNTER 2023-11-21 08:09 | Inpatient (IN) | payer MEDICAID, SELFPAY ==
[2023-11-21] VITALS (7 sets, daily range): BP systolic 117–147; BP diastolic 79–90; PULSE 86–108; RESP 16–18; TEMP 36.4–37.1; O2SAT 96–100; BMI 38.7; BMI 39.0
--- NOTE | 2023-11-21 08:27 | CT_ITS ---
STUDY: CT ABDOMEN AND PELVIS WITH CONTRAST - URINARY TRACT REASON FOR EXAM: Female, 33 years old. Left flank pain. Patient is approximately 2 weeks post cholecystectomy and has a stent in her bile duct. RADIATION DOSAGE (If Supplied By Facility): CTDIvol = ( 16.56 ) mGy, DLP = ( 1347.39 ) mGycm TECHNIQUE: IV 100mL Isovue-300 was administered. Transaxial images were obtained from the dome of the diaphragm to the symphysis pubis subsequent to intravenous contrast ministration. Multiplanar coronal and sagittal images were reformatted. Individualized Dose Optimization Techniques Were Used For This CT. COMPARISON: October 28, 2023 FINDINGS: There is a left lower lobe granuloma. The visualized portions of the heart are within normal limits. Normal liver. There is evidence of prior cholecystectomy. There is a percutaneous drainage catheter in place terminating within the region of the falciform ligament. There is an a biliary stent in place. Normal spleen. Normal pancreas. Normal bilateral adrenal glands. Normal visualized stomach. Normal small intestine. There are postsurgical changes of the colon associated with a colostomy within the left lower abdomen. Normal abdominal aorta. No retroperitoneal adenopathy. Normal right kidney. There is left perinephric stranding. There is a 2.0 x 1.3 x 1.9 cm low-attenuation focus arising from the upper pole of the left kidney in the region which a cyst was visualized on the prior examination which has decreased in size. There is mild left-sided hydronephrosis. Normal urinary bladder. There is an intrauterine catheter in place. There is a simple appearing left adnexal cysts measuring up to 2.6 cm. There is a right external iliac stents in place. There are postsurgical changes along the anterior abdominal wall.. Normal osseous structures. CT/Abdomen/Pelvis W IV Cont ONLY IMPRESSION: Left perinephric stranding associated with interval decrease in size of a cystic focus arising from the left kidney measuring 2.0 x 1.3 x 1.9 cm suggestive of a ruptured renal cyst, cannot entirely exclude an abscess. New mild left-sided hydronephrosis. Status post cholecystectomy. Electronically Signed: Shelly Dooley MD at 9:41 EDT ,
--- NOTE | 2023-11-21 08:28 | EDS_ITS ---
HPI History of Present Illness Chief Complaint: Flank Pain Detail of Chief Complaint: Left flank pain Informant: patient Narrative Narrative: Patient presents the emergency department complaint of left flank pain. Patient states she started having discomfort last evening. She was recently admitted to [facility] for a week and discharged 3 days ago. Patient is approximately 2 weeks post cholecystectomy and has a stent in her bile duct. Approximately a week ago she was being evaluated by her surgeon to remove the bennie from her wounds when she started complaining of left abdominal pain and flank pain and went to the emergency department at [facility] where she was admitted for UTI and a ruptured left kidney cyst. She was treated medically with Zosyn for 5 days. She states that she did well for about 2 days until last evening when she started having more pain to her left side. Patient also has a colostomy currently due to history of a bowel perforation related to diverticulitis. Patient tells me she had some chills last night but no fever. She has some mild urinary frequency. [facility] Medical History CKD (chronic kidney disease), stage II GERD (gastroesophageal reflux disease) Goiter History of anemia History of gestational diabetes IBS (irritable bowel syndrome) Insulin resistance Metabolic syndrome Morbid obesity PCOS (polycystic ovarian syndrome) Home Medications acetaminophen 500 mg tablet 500 - 1,000 mg PO Q6H PRN Mild Pain (-09/17) 10/14/16 [History Last Taken 10/17/16] apixaban 5 mg tablet (Eliquis) 5 mg PO BID #60 tabs 07/14/23 [Rx Last Taken 10/27/23] docusate sodium 100 mg capsule 100 mg PO BID constipation 07/25/23 [History Last Taken 10/27/23] melatonin 3 mg tablet 3 mg PO QHS insomni 07/25/23 [History Last Taken 10/27/23] polyethylene glycol 3350 17 gram/dose oral powder (Powderlax) 17 g PO BID constipation 07/25/23 [History Last Taken 10/27/23] clopidogrel 75 mg tablet (Plavix) 75 mg PO DAILY #30 tabs 07/27/23 [Rx Last Taken 10/26/23] hydrocolloid dressing 4 X 5 (Aquacel Extra) #10 ea 08/03/23 [Rx Last Taken Unknown] hydrocolloid dressing 6 X 6 (Comfeel Plus Clear Dressing) #5 ea 08/03/23 [Rx Last Taken Unknown] ondansetron 4 mg disintegrating tablet 8 mg PO Q8H PRN Nausea 10/28/23 [History Last Taken Unknown] tirzepatide 2.5 mg/0.5 mL subcutaneous pen injector 2.5 mg subcut MO 10/28/23 [History Last Taken 10/24/23] Allergy/AdvReac Type Severity Reaction Status Date / Time No Known Allergies Allergy Verified 11/21/23 08:10 Family History (Updated 10/28/23 @ 19:[address] Magui Barnes MD) Mother Hypertension Father VTE (venous thromboembolism) Hx VTE after COVID. Other Autoimmune disease Cancer Graves disease Thyroid disorder Surgical History History of colon surgery (~05/2023) History of vascular surgery S/P colostomy Social History (Updated 10/28/23 @ 19:[address] Magui Barnes MD) household members: family Smoking Status: Never smoker alcohol intake: current alcohol intake frequency: holidays/special occasions only details: drank a couple weeks a week substance use type: does not use frequency: 1-2 times per week ROS ROS ED Review of Systems ROS Unobtainable: other Constitutional Constitutional ED: Reports lethargy; Denies chills, fever(s), sweats or weight loss Eyes Eyes: Denies blurry vision, change in vision or diplopia ENT ENT ED: Denies rhinorrhea or sore throat Cardiovascular Cardiovascular: Denies chest pain, orthopnea or racing heartbeat Respiratory/Chest Respiratory/Chest: Denies cough, dyspnea, dyspnea on exertion, orthopnea or sputum Gastrointestinal Gastrointestinal: Denies abdominal pain, diarrhea, nausea or vomiting Genitourinary Genitourinary ED: Denies dysuria, hematuria or urinary frequency Musculoskeletal Musculoskeletal: Reports back pain; Denies arthralgias, myalgias or neck pain Integumentary Denies abscess, Abrasions or rash Neurologic Neurologic: Denies headache(s) or weakness Psychiatric Psychiatric: Denies anxiety, depression or suicidal thoughts Endocrine Endocrinology: Denies polydipsia, polyphagia or polyuria Hematologic/Lymphatic Hematologic/Lymphatic: Denies easy bleeding, easy bruising or lymphadenopathy Allergic/Immunologic Allergic/Immunologic ED: Denies mouth swelling, tongue swelling or urticaria EXAM Physical Exam Const Vital Signs: 11/21/23 08:10 11/21/23 08:51 11/21/23 09:16 Temperature 97.6 F L 97.6 F L 97.6 F L Temperature Source Temporal Oral Temporal Pulse Rate 108 H 108 H 104 H Respiratory Rate 18 18 17 Blood Pressure 128/90 H 128/90 H 147/86 H Blood Pressure Mean 102 102 106 Pulse Ox 98 98 96 Oxygen Delivery Method Room Air Room Air Room Air 11/21/23 10:28 Temperature 97.8 F Temperature Source Temporal Pulse Rate 92 Respiratory Rate 16 Blood Pressure 139/88 H Blood Pressure Mean 105 Pulse Ox 97 Oxygen Delivery Method Room Air Positive well nourished and well developed General Appearance ED: well developed and NAD HEENT Reports TM's clear and moist mucous membranes normocephalic and atraumatic; Negative for trauma or tenderness Tympanic Membrane ED: Yes TM's clear Eyes PERRL and EOMs intact bilaterally General Eye ED: Negative for pale conjunctiva or scleral icterus Neck no lymphadenopathy, supple and no JVD General: Negative for tenderness Chest Wall inspection of chest normal and palpation of chest normal Chest: Negative for tenderness Resp normal respiratory effort and clear to auscultation bilaterally Effort and Inspection: Negative for respiratory distress or pain with movement Auscultation: Negative for rhonchi, wheezes or diminished lung sounds Cardio regular rate, regular rhythm, S1 normal heart sound, S2 normal heart sound and no murmurs Peripheral Pulses: pulses 2+ throughout GI normal to inspection, nondistended, normoactive bowel sounds, soft to palpation, non-tender, non-distended and no masses GI Narrative: Patient has a colostomy in place over the left lower quadrant. Patient has a drain in her right upper quadrant. Back/Spine no thoracic nor lumbar tenderness; Negative for no CVA tenderness Back/Spine Narrative: Left CVA tenderness on exam Extremity normal to inspection General Extremety ED: Negative for edema General Extremity: Negative for edema Neuro oriented x3, CN's II-XII intact bilaterally, no sensory deficits noted and gait normal Sensorium / Orientation: awake, alert, oriented to person, oriented to place and oriented to time Motor Exam: strength 5/5 throughout and strength abnormal Psych mental status grossly normal Skin no rashes or lesions noted and no wounds MDM MDM MDM Narrative Medical decision making narrative: Patient presents with left flank pain with recent admission to [facility] and treated with IV antibiotics for 5 days. IV line established. CBC with differential white count 11.3 with hemoglobin 10.4 and platelet count of 254. Chemistries unremarkable. BUN 14 and creatinine 1.39. Glucose 117. LFTs were normal. Lipase normal at 19. Urinalysis was cloudy with positive leukocyte Estrace and 25-50 WBCs and +1 bacteria. Urine culture sent. Patient was started on Rocephin [address] scan of the abdomen pelvis with IV contrast was obtained and showed a ruptured left renal cyst with left hydroureter. Patient was medicated initially with Dilaudid and Zofran and she had good pain relief initially but the pain came back. Discussed case with urology. Urology recommended admission to medicine and consultation to urology. It is unclear if this is a resolving renal abscess potentially versus pyelonephrosis versus other etiology. May require further intervention and follow-up by urology. Discussed case with Dr. Novak who will evaluate patient for admission. Lab Data Attestation: I reviewed the patient's lab results. Labs: Laboratory Results - last 24 hr 11/21/23 11/21/23 08:40 09:09 WBC 11.3 H RBC 3.54 L Hgb 10.4 L Hct 32.5 L MCV 91.8 MCH 29.4 MCHC 32.0 RDW Std Deviation 49.5 H RDW Coeff of Deyvi 14.8 H Plt Count 254 MPV 9.1 Immature Gran % (Auto) 0.400 Neut % (Auto) 80.9 H Lymph % (Auto) 8.7 L [place] % (Auto) 8.4 Eos % (Auto) 1.2 Baso % (Auto) 0.4 Absolute Neuts (auto) 9.1 H Absolute Lymphs (auto) 0.98 Nucleated RBC % 0 Sodium 135 L Potassium 3.9 Chloride 106 Carbon Dioxide 22.0 Anion Gap 7 BUN 14 Creatinine 1.39 H Estim Creat Clear Calc 68.10 Est GFR (MDRD) Af Amer 55 L Est GFR (MDRD) Non-Af 46 L BUN/Creatinine Ratio 10.1 Glucose 117 H Calcium 9.2 Total Bilirubin 0.40 AST 15 ALT 20 Alkaline Phosphatase 97 Total Protein 8.3 H Albumin 3.0 L Globulin 5.3 H Albumin/Globulin Ratio 0.6 L Lipase 19 Urine Color Yellow Urine Clarity Sl. Cloudy Urine pH 5.0 Ur Specific [place] 1.015 Urine Protein 15 H Urine Glucose (UA) Normal Urine Ketones Negative Urine Occult Blood 50 H Urine Nitrite Negative Urine Bilirubin Negative Urine Urobilinogen Normal Ur Leukocyte Esterase 500 H Urine RBC 0-5 SEEN Urine WBC 25-50 SEEN Ur Squamous Epith Cells 10-25 SEEN Urine Bacteria 1+ Urine Mucus 0 SEEN Radiography Diagnostic Testing: Clinical Impression(s) from Imaging Studies Abdomen/Pelvis CT 11/21/23 08:27 IMPRESSION: Left perinephric stranding associated with interval decrease in size of a cystic focus arising from the left kidney measuring 2.0 x 1.3 x 1.9 cm suggestive of a ruptured renal cyst, cannot entirely exclude an abscess. New mild left-sided hydronephrosis. Status post cholecystectomy. Electronically Signed: Shelly Dooley MD at 9:41 EDT , Discharge Plan Triage Chief Complaint: Flank Pain ED Provider: Gregg Denny Dx/Rx/DC Orders Clinical Impression: Acute left flank pain, UTI (urinary tract infection), Hydroureter Prescriptions: No Action Eliquis 5 mg tablet 5 mg PO BID Qty: 60 5RF (DME) Aquacel Extra 4 X 5 bandage See Rx Instructions .Route Qty: 10 2RF Rx Instructions: As directed (DME) hydrocolloid dressing [Comfeel Plus Clear Dressing] 6 X 6 bandage See Rx Instructions .Route Qty: 5 4RF Rx Instructions: As directed acetaminophen 500 MG tablet 500 - 1,000 mg PO Q6H PRN (Reason: Mild Pain (-09/17)) melatonin 3 mg tablet 3 mg PO QHS docusate sodium 100 mg capsule 100 mg PO BID Patient Comments: Pt says she takes them at 8am and 8pm polyethylene glycol 3350 [Powderlax] 17 gram/dose powder 17 g PO BID clopidogrel [Plavix] 75 mg tablet 75 mg PO DAILY Qty: 30 11RF tirzepatide 2.5 mg/0.5 mL pen injector 2.5 mg subcut MO ondansetron 4 mg tablet,disintegrating 8 mg PO Q8H PRN (Reason: Nausea) Primary Care Provider: Trang Quintero Referrals: Trang Quintero MD [Primary Care Provider] - Disposition Disposition: Acute Care Hospital [facility]
[2023-11-21 08:55] LABS: Absolute Lymphocyte Count 0.98 X10^3/uL (0.83-4.51); Absolute Neutrophil Count 9.1 X10^3/uL (2.0-7.7); Basophil# 0.04 X10^3/uL; Basophil% 0.4 % (0-1); Eosinophil# 0.14 X10^3/uL; Eosinophils% 1.2 % (0-5); Hematocrit 32.5 % (37-47); Hemoglobin 10.4 g/dL (12.0-15.0); Lymphocyte # 0.98 X10^3/ul (0.83-4.51); Lymphocyte % 8.7 % (19-41); Mean Corpuscular Hgb 29.4 pg (27.0-32.0); Mean Corpuscular Volume 91.8 fL (81-99); Mean Platelet Vol. 9.1 fl (6.2-12.0); Monocyte# 0.95 X10^3/uL; Monocyte% 8.4 % (0-10); NRBC Flagged by Analyzer 0 % (0-5); Neutrophil # 9.13 X10^3/uL (2.7-7.7); Neutrophil % 80.9 % (47-70); Platelet Count 254 K/mm3 (150-450); RBC Distribution Width CV 14.8 % (11.6-14.6); RBC Distribution Width SD 49.5 fl (35.1-43.9); Red Blood Count 3.54 M/mm3 (4.2-5.4); White Blood Count 11.3 K/mm3 (4.4-11.0)
[2023-11-21] MEDS: HYDROmorphone 1 MG/ML Syringe IV ×4 (09:04→22:09)
[2023-11-21] MEDS: Ondansetron 4 MG/2 ML Vial IV ×2 (09:04→14:23)
[2023-11-21] MEDS: 0.9% Normal Saline (1000mL) 1,000 ML 1000 ML IV (09:04)
[2023-11-21 09:13] LABS: Mucous, Urine 0 SEEN /hpf (<or=2+)
[2023-11-21 09:14] LABS: Color, Urine Yellow (Yellow); Glucose, Dipstick Normal (Normal); Ketone-Dipstick Negative (Negative); Leukocyte Esterase-Dipstick 500 /ul (Negative); Nitrite-Dipstick Negative (Negative); Occult Blood-Urine 50 /ul (Negative); Protein-Dipstick 15 mg/dl (Negative); Specific Gravity, Urine 1.015 (1.002-1.030); Urine Bilirubin Dipstick Negative (Negative); Urine Clarity Sl. Cloudy (Clear); Urine Urobilinogen Normal (Normal)
[2023-11-21 09:20] LABS: ALB/GLOB Ratio 0.6 RATIO (0.9-2.4); AST(SGOT) 15 U/L (15-37); Alanine Aminotransfer ALT/SGPT 20 U/L (13-56); Alkaline Phosphatase 97 U/L (45-117); Anion Gap 7 (5-15); BUN 14 mg/dL (7-18); BUN/Creat Ratio 10.1 RATIO (10-20); Calcium,Total 9.2 mg/dL (8.5-10.1); Chloride 106 mmol/L (98-107); Creatinine, Serum 1.39 mg/dL (0.55-1.02); EST Glomerular Filtration Rate 46 mL/min (>60); Est Glom Filt Rate - Afr Amer 55 mL/min (>60); Globulin 5.3 g/dL (2.2-4.2); Glucose 117 mg/dL (74-106); Lipase 19 U/L (13-75); Potassium 3.9 mmol/L (3.5-5.1); Protein, Total 8.3 g/dL (6.4-8.2); Sodium Level 135 mmol/L (136-145)
[2023-11-21 09:26] LABS: Squamous Epithelial Cells - UA 10-25 SEEN /hpf (5-10)
[2023-11-21 09:27] LABS: Bacteria 1+ /hpf (None Seen); Red Blood Cells-Urine 0-5 SEEN /hpf (0-5); White Blood Cells 25-50 SEEN /hpf (0-5)
[2023-11-21] MEDS: Ceftriaxone 1 GM/50 ML BAG IV (11:21)
--- NOTE | 2023-11-21 12:11 | PCM.HP.STD ---
[facility] Date of Admission: 11/21/23 Date of Service: 11/21/23 Chief Complaint: Left flank pain started this morning today [facility] Narrative OMA SPAIN, is a 33 F with multiple comorbidities came to ER with sudden onset of severe left flank pain in the morning today along with nausea. She felt some chills but no fever. She described her pain as very excruciating, constant 10/10, unable to tolerate therefore came to ER. The pain is predominantly over left renal angle with radiation to left hypochondrium but did not migrate to umbilicus or inguinal area. Prior to that, she was admitted in [facility] for 7 days and was discharged on weekend's, Tuesday for left flank pain for left kidney cyst rupture. She was treated medically with IV antibiotics Zosyn for 5 days. Prior to that she was admitted here for acute cholecystitis pain and was transferred to tertiary care facility for IR guided gastrostomy tube and then cholecystectomy. Patient had cholecystectomy and was discharged with CHRISTOS drain and was about to be removed but at that time she developed left flank pain and was admitted in [facility] as mentioned above In ED, CT abdomen was done which shows decrease in the left kidney cyst with perinephric stranding and mild left hydronephrosis. Urologist is consulted recommended admission with IV antibiotics and pain control [facility] Medical History Acute cholecystitis CKD (chronic kidney disease), stage II Deep vein thrombosis (DVT) of right lower extremity GERD (gastroesophageal reflux disease) Goiter History of anemia History of gestational diabetes IBS (irritable bowel syndrome) Insulin resistance Metabolic syndrome Morbid obesity PCOS (polycystic ovarian syndrome) Home Medications acetaminophen 500 mg tablet 500 - 1,000 mg PO Q6H PRN Mild Pain (1-3/10) 10/14/16 [History Last Taken 11/20/23] apixaban 5 mg tablet (Eliquis) 5 mg PO BID #60 tabs 07/14/23 [Rx Last Taken 11/20/23] docusate sodium 100 mg capsule 100 mg PO BID constipation 07/25/23 [History Last Taken 11/20/23] melatonin 3 mg tablet 3 mg PO QHS insomni 07/25/23 [History Last Taken 11/20/23] polyethylene glycol 3350 17 gram/dose oral powder (Powderlax) 17 g PO BID constipation 07/25/23 [History Last Taken 11/20/23] clopidogrel 75 mg tablet (Plavix) 75 mg PO DAILY #30 tabs 07/27/23 [Rx Last Taken 11/20/23] hydrocolloid dressing 4 X 5 (Aquacel Extra) #10 ea 08/03/23 [Rx Last Taken Unknown] hydrocolloid dressing 6 X 6 (Comfeel Plus Clear Dressing) #5 ea 08/03/23 [Rx Last Taken Unknown] ondansetron 4 mg disintegrating tablet 8 mg PO Q8H PRN Nausea 10/28/23 [History Last Taken 11/20/23] tirzepatide 2.5 mg/0.5 mL subcutaneous pen injector 2.5 mg subcut MO 10/28/23 [History Last Taken 10/24/23] oxycodone 10 mg tablet 10 mg PO Q4H PRN severe pain 11/21/23 [History Last Taken Unknown] Allergy/AdvReac Type Severity Reaction Status Date / Time No Known Allergies Allergy Verified 11/21/23 08:10 Family History Mother Hypertension Father VTE (venous thromboembolism) Hx VTE after COVID. Other Autoimmune disease Cancer Graves disease Thyroid disorder Surgical History History of colon surgery (~05/2023) History of vascular surgery S/P colostomy Social History household members: family Smoking Status: Never smoker alcohol intake: current alcohol intake frequency: holidays/special occasions only details: drank a couple weeks a week substance use type: does not use frequency: 1-2 times per week ROS ROS Narrative Constitutional: Reports fatigue and weakness. No fever. HEENT: Reports systems reviewed and no addt'l complaints, except as documented Respiratory/Chest: No acute shortness of breath or respiratory distress or wheezing. CVS: No chest pain. Gastrointestinal: Mild nausea. Chronic colostomy. Denies coffee ground emesis, hematemesis or vomiting Genitourinary: Left flank pain. Denies burning urination or new urinary tract symptoms Musculoskeletal: Denies acute joint pain or limited range of motion. No acute injury Neurologic: Denies seizure-like symptoms. skin: No ulcer. No rash Endocrinology: Reports systems reviewed and no addt'l complaints, except as documented Hematologic/Lymphatic: Reports systems reviewed and no addt'l complaints, except as documented Rest 14 ROS are negative except as mentioned in HPI Vital Signs Vital Signs Vital Signs: 11/21/23 08:10 11/21/23 08:51 11/21/23 09:16 Temperature 97.6 F L 97.6 F L 97.6 F L Temperature Source Temporal Oral Temporal Pulse Rate 108 H 108 H 104 H Respiratory Rate 18 18 17 Blood Pressure 128/90 H 128/90 H 147/86 H Blood Pressure Mean 102 102 106 Pulse Ox 98 98 96 Oxygen Delivery Method Room Air Room Air Room Air 11/21/23 10:28 Temperature 97.8 F Temperature Source Temporal Pulse Rate 92 Respiratory Rate 16 Blood Pressure 139/88 H Blood Pressure Mean 105 Pulse Ox 97 Oxygen Delivery Method Room Air Weight Weight: 232 lb 6.4 oz Body Mass Index (BMI) 38.7 Physical Exam Narrative General: Alert, Oriented x3, Cooperative, obesity grade 2 BMI 38.7 kg/m?. HEENT: Atraumatic, PERRLA, EOMI, Normocephalic Oral: Oral mucosa dry. No Gingival or Mucosal Lesions/ Ulcerations Neck: Supple, No JVD, Negative Carotid Bruits Chest wall/Lungs: Air entry diminished in bilateral lung bases. No crepitation/rhonchi Cardiovascular: Regular rate, Regular Rhythm, Normal S1, Normal S2, No M/G/R Abdomen: Colostomy present. CHRISTOS drain clear, mainly serous fluid. No RUQ tenderness. Bowel Sounds sluggish. Soft. Nondistended : Left renal angle tenderness. No dysuria. No suprapubic tenderness. Extremities: No edema, Capillary Refill Less than 3 Seconds Skin: No rashes, No breakdown Musculoskeletal: No Tenderness to Palpation of Joints or Extremities Neurological: Cranial nerves II-XII grossly intact, DTR 2+/4. No acute focal neurological deficit. Psych/Mental Status: Flat affect. Results Lab / Micro Data 11/21/23 08:40 11/21/23 08:40 Labs: Laboratory Results - last 24 hr 11/21/23 08:40: WBC 11.3 H, RBC 3.54 L, Hgb 10.4 L, Hct 32.5 L, MCV 91.8, MCH 29.4, MCHC 32.0, RDW Std Deviation 49.5 H, RDW Coeff of Deyvi 14.8 H, Plt Count 254, MPV 9.1, Immature Gran % (Auto) 0.400, Neut % (Auto) 80.9 H, Lymph % (Auto) 8.7 L, Carbon % (Auto) 8.4, Eos % (Auto) 1.2, Baso % (Auto) 0.4, Absolute Neuts (auto) 9.1 H, Absolute Lymphs (auto) 0.98, Nucleated RBC % 0, Sodium 135 L, Potassium 3.9, Chloride 106, Carbon Dioxide 22.0, Anion Gap 7, BUN 14, Creatinine 1.39 H, Estim Creat Clear Calc 68.10, Est GFR (MDRD) Af Amer 55 L, Est GFR (MDRD) Non-Af 46 L, BUN/Creatinine Ratio 10.1, Glucose 117 H, Calcium 9.2, Total Bilirubin 0.40, AST 15, ALT 20, Alkaline Phosphatase 97, Total Protein 8.3 H, Albumin 3.0 L, Globulin 5.3 H, Albumin/Globulin Ratio 0.6 L, Lipase 19 11/21/23 09:09: Urine Color Yellow, Urine Clarity Sl. Cloudy, Urine pH 5.0, Ur Specific [place] 1.015, Urine Protein 15 H, Urine Glucose (UA) Normal, Urine Ketones Negative, Urine Occult Blood 50 H, Urine Nitrite Negative, Urine Bilirubin Negative, Urine Urobilinogen Normal, Ur Leukocyte Esterase 500 H, Urine RBC 0-5 SEEN, Urine WBC 25-50 SEEN, Ur Squamous Epith Cells 10-25 SEEN, Urine Bacteria 1+, Urine Mucus 0 SEEN Imaging Radiology Impression Abdomen/Pelvis CT 11/21/23 08:27 IMPRESSION: Left perinephric stranding associated with interval decrease in size of a cystic focus arising from the left kidney measuring 2.0 x 1.3 x 1.9 cm suggestive of a ruptured renal cyst, cannot entirely exclude an abscess. New mild left-sided hydronephrosis. Status post cholecystectomy. Electronically Signed: Shelly Dooley MD at 9:41 EDT , Assessment & Plan Assessment/Plan (1) Acute left flank pain: PLAN: Plan This 33-year-old female with multiple comorbidities came to ER with left flank pain. 1. Left flank pain probably from left kidney cyst rupture complicated with left perinephric stranding and mild left hydronephrosis: Patient is being admitted on [facility] floor. UA shows WBC 25?50 cells, LE 500 but negative nitrite, squamous cells 10-25 cells, 1+ bacteria. CT scan showing left perinephric stranding probably inflammation from pyelonephritis with interval decrease in size of left kidney cyst 2.0 x 1.3 x 1.9 cm history of ruptured renal cyst. Urologist is consulted. Pain control with Tylenol and Dilaudid. IV fluid normal saline. Urine culture is ordered. 2. Recently had cholecystectomy with CHRISTOS drain: About 10 days ago patient was supposed to CHRISTOS drain removed but at the same time she got left flank pain and was admitted for 1 week in [facility] before this second episode as mentioned above. 3. 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 Patient denies history of diabetes mellitus But has metabolic syndrome. Glucose 117. A1c on 10/29/2023 5.2%. 4. Right lower extremity DVT: On Eliquis continued 5. WANDA on CKD stage II: Baseline BUNs/creatinine 16/1.07. Patient admitted with UA/creatinine 14/1.39. Continue IV fluid. 6. Other multiple comorbidities include goiter, history of chronic anemia and morbid obesity: BMI 38.7 kg/m? Living will/advanced directive/end of life care: Patient does not have living will or advanced directive. I talked to her mother near the bedside. After discussion of benefits/risks procedures involved with full code, DNR CC arrest and DNR CC, the patient opted for full code. Patient does want artificial life support including intubation, tube feed, ventilator and/chest compression, central venous catheter, vasopressor and DC shock if needed Total time spent in [id number] encounter in discussion of advanced directive 17 minutes. Laboratory Results 11/21/23 08:40: WBC 11.3 H, RBC 3.54 L, Hgb 10.4 L, Hct 32.5 L, MCV 91.8, MCH 29.4, MCHC 32.0, RDW Std Deviation 49.5 H, RDW Coeff of Deyvi 14.8 H, Plt Count 254, MPV 9.1, Immature Gran % (Auto) 0.400, Neut % (Auto) 80.9 H, Lymph % (Auto) 8.7 L, Carbon % (Auto) 8.4, Eos % (Auto) 1.2, Baso % (Auto) 0.4, Absolute Neuts (auto) 9.1 H, Absolute Lymphs (auto) 0.98, Nucleated RBC % 0, Sodium 135 L, Potassium 3.9, Chloride 106, Carbon Dioxide 22.0, Anion Gap 7, BUN 14, Creatinine 1.39 H, Estim Creat Clear Calc 68.10, Est GFR (MDRD) Af Amer 55 L, Est GFR (MDRD) Non-Af 46 L, BUN/Creatinine Ratio 10.1, Glucose 117 H, Calcium 9.2, Total Bilirubin 0.40, AST 15, ALT 20, Alkaline Phosphatase 97, Total Protein 8.3 H, Albumin 3.0 L, Globulin 5.3 H, Albumin/Globulin Ratio 0.6 L, Lipase 19 11/21/23 09:09: Urine Color Yellow, Urine Clarity Sl. Cloudy, Urine pH 5.0, Ur Specific [place] 1.015, Urine Protein 15 H, Urine Glucose (UA) Normal, Urine Ketones Negative, Urine Occult Blood 50 H, Urine Nitrite Negative, Urine Bilirubin Negative, Urine Urobilinogen Normal, Ur Leukocyte Esterase 500 H, Urine RBC 0-5 SEEN, Urine WBC 25-50 SEEN, Ur Squamous Epith Cells 10-25 SEEN, Urine Bacteria 1+, Urine Mucus 0 SEEN Clinical Impression(s) from Imaging Studies Abdomen/Pelvis CT 11/21/23 08:27 IMPRESSION: Left perinephric stranding associated with interval decrease in size of a cystic focus arising from the left kidney measuring 2.0 x 1.3 x 1.9 cm suggestive of a ruptured renal cyst, cannot entirely exclude an abscess. New mild left-sided hydronephrosis. Status post cholecystectomy. Charges/Coding Visit Charges Inpatient E&M: 00993 Subs Hosp L3
[2023-11-21] MEDS: 0.9% Normal Saline (1000mL) 1,000 ML 100 ML IV ×2 (14:09→23:54)
[2023-11-21] MEDS: Acetaminophen 500 MG Tablet 1000 MG PO ×2 (14:23→22:04)
[2023-11-21] MEDS: HYDROmorphone 0.5 MG/0.5 ML SYRINGE IV (14:23)
[2023-11-21 14:34] LABS: Magnesium 1.5 mg/dL (1.6-2.6)
[2023-11-21] MEDS: APIXABAN 5 MG TABLET PO ×2 (16:05→22:04)
[2023-11-21] MEDS: Lactobacillis Acidophilus 1 CAP PO ×2 (16:05→22:05)
[2023-11-21] MEDS: Senna/Docusate Sodium 1 Tablet 2 TABLET PO (22:09)
[2023-11-22] MEDS: HYDROmorphone 1 MG/ML Syringe IV ×8 (01:00→22:30)
[2023-11-22 04:00] VITALS: BP 107/68; PULSE 79; RESP 16; TEMP 36.7; O2SAT 97
[2023-11-22] MEDS: Lactobacillis Acidophilus 1 CAP PO ×3 (05:00→20:39)
[2023-11-22] MEDS: Acetaminophen 500 MG Tablet 1000 MG PO ×3 (05:00→20:40)
[2023-11-22 06:00] VITALS: BMI 39.1
[2023-11-22 06:26] LABS: Absolute Lymphocyte Count 1.36 X10^3/uL (0.83-4.51); Absolute Neutrophil Count 6.8 X10^3/uL (2.0-7.7); Basophil# 0.02 X10^3/uL; Basophil% 0.2 % (0-1); Eosinophil# 0.22 X10^3/uL; Eosinophils% 2.4 % (0-5); Hematocrit 28.1 % (37-47); Hemoglobin 8.7 g/dL (12.0-15.0); Lymphocyte # 1.36 X10^3/ul (0.83-4.51); Lymphocyte % 14.8 % (19-41); Mean Corpuscular Hgb 29.2 pg (27.0-32.0); Mean Corpuscular Volume 94.3 fL (81-99); Mean Platelet Vol. 9.4 fl (6.2-12.0); Monocyte# 0.81 X10^3/uL; Monocyte% 8.8 % (0-10); NRBC Flagged by Analyzer 0 % (0-5); Neutrophil # 6.75 X10^3/uL (2.7-7.7); Neutrophil % 73.4 % (47-70); Platelet Count 236 K/mm3 (150-450); RBC Distribution Width CV 15.2 % (11.6-14.6); RBC Distribution Width SD 52.4 fl (35.1-43.9); Red Blood Count 2.98 M/mm3 (4.2-5.4); White Blood Count 9.2 K/mm3 (4.4-11.0)
[2023-11-22 06:48] LABS: Anion Gap 5 (5-15); BUN 12 mg/dL (7-18); BUN/Creat Ratio 9.4 RATIO (10-20); Calcium,Total 8.8 mg/dL (8.5-10.1); Chloride 105 mmol/L (98-107); Creatinine, Serum 1.27 mg/dL (0.55-1.02); EST Glomerular Filtration Rate 51 mL/min (>60); Est Glom Filt Rate - Afr Amer 61 mL/min (>60); Estimated Creatinine Clearance 74.96 ml/min; Glucose 99 mg/dL (74-106); Potassium 3.7 mmol/L (3.5-5.1); Sodium Level 136 mmol/L (136-145)
--- NOTE | 2023-11-22 07:49 | PCM.CONS.U ---
Assessment & Plan Assessment/Plan (1) Hydroureter: (2) UTI (urinary tract infection): PLAN: Continue with antibiotics, I plan to take her to surgery tomorrow for cystoscopy we will obtain urine from that left collecting system possibly the left connecting fluid pocket and we will plan to do a retrograde and then placed a stent on the left side and hopefully the stent will then allow the infection to clear out and allow the kidney to heal. Told the patient the stent is only temporary we will plan to get the stent out a few weeks afterwards. (3) Acute left flank pain: HPI Consult Data Date of Consult: 11/22/23 HPI Narrative Reason for Consultation: Left hydronephrosis possible connecting abscess HPI Narrative: OMA SPAIN, is a 33 F who presents left flank pain CT scan was done and demonstrated she is got hydronephrosis and then in the upper part of the kidney looks like there is a connecting pocket of fluid which might be an abscess this is smaller than before but it still present and she is got more hydronephrosis so is making suspicious that she might have an infection in her kidney. Her white count is normal but she still having pain in their left side and left kidney area. [facility] Medical History (Updated 11/21/23 @ 13:54 by Sugar West) Preeclampsia Morbid obesity CKD (chronic kidney disease), stage II Acute cholecystitis Deep vein thrombosis (DVT) of right lower extremity Insulin resistance PCOS (polycystic ovarian syndrome) Metabolic syndrome History of gestational diabetes History of anemia Goiter GERD (gastroesophageal reflux disease) IBS (irritable bowel syndrome) Home Medications ?Medication ?Instructions ?Recorded ?Last Taken ?Type acetaminophen 500 mg tablet 500 - 1,000 mg PO Q6H PRN Mild 10/14/16 11/20/23 History Pain (1-09/17) apixaban 5 mg tablet (Eliquis) 5 mg PO BID #60 tabs 07/14/23 11/20/23 Rx docusate sodium 100 mg capsule 100 mg PO BID constipation 07/25/23 11/20/23 History melatonin 3 mg tablet 3 mg PO QHS insomni 07/25/23 11/20/23 History polyethylene glycol 3350 17 17 g PO BID constipation 07/25/23 11/20/23 History gram/dose oral powder (Powderlax) clopidogrel 75 mg tablet (Plavix) 75 mg PO DAILY #30 tabs 07/27/23 11/20/23 Rx hydrocolloid dressing 4 X 5 #10 ea 08/03/23 Unknown Rx (Aquacel Extra) hydrocolloid dressing 6 X 6 #5 ea 08/03/23 Unknown Rx (Comfeel Plus Clear Dressing) ondansetron 4 mg disintegrating 8 mg PO Q8H PRN Nausea 10/28/23 11/20/23 History tablet tirzepatide 2.5 mg/0.5 mL 2.5 mg subcut MO 10/28/23 10/24/23 History subcutaneous pen injector oxycodone 10 mg tablet 10 mg PO Q4H PRN severe pain 11/21/23 Unknown History Allergy/AdvReac Type Severity Reaction Status Date / Time No Known Allergies Allergy Verified 11/21/23 08:10 Family History Mother Hypertension Father VTE (venous thromboembolism) Hx VTE after COVID. Other Autoimmune disease Cancer Graves disease Thyroid disorder Surgical History History of vascular surgery S/P colostomy History of colon surgery (~05/2023) Social History household members: family Smoking Status: Never smoker alcohol intake: current alcohol intake frequency: holidays/special occasions only details: drank a couple weeks a week substance use type: does not use frequency: 1-2 times per week Lab / Micro Data 11/22/23 05:55 11/22/23 05:55 Labs: Laboratory Results - last 24 hr 11/21/23 08:40: WBC 11.3 H, RBC 3.54 L, Hgb 10.4 L, Hct 32.5 L, MCV 91.8, MCH 29.4, MCHC 32.0, RDW Std Deviation 49.5 H, RDW Coeff of Deyvi 14.8 H, Plt Count 254, MPV 9.1, Immature Gran % (Auto) 0.400, Neut % (Auto) 80.9 H, Lymph % (Auto) 8.7 L, Harper % (Auto) 8.4, Eos % (Auto) 1.2, Baso % (Auto) 0.4, Absolute Neuts (auto) 9.1 H, Absolute Lymphs (auto) 0.98, Nucleated RBC % 0, Sodium 135 L, Potassium 3.9, Chloride 106, Carbon Dioxide 22.0, Anion Gap 7, BUN 14, Creatinine 1.39 H, Estim Creat Clear Calc 68.10, Est GFR (MDRD) Af Amer 55 L, Est GFR (MDRD) Non-Af 46 L, BUN/Creatinine Ratio 10.1, Glucose 117 H, Calcium 9.2, Magnesium 1.5 L, Total Bilirubin 0.40, AST 15, ALT 20, Alkaline Phosphatase 97, Total Protein 8.3 H, Albumin 3.0 L, Globulin 5.3 H, Albumin/Globulin Ratio 0.6 L, Lipase 19 11/21/23 09:09: Urine Color Yellow, Urine Clarity Sl. Cloudy, Urine pH 5.0, Ur Specific [place] 1.015, Urine Protein 15 H, Urine Glucose (UA) Normal, Urine Ketones Negative, Urine Occult Blood 50 H, Urine Nitrite Negative, Urine Bilirubin Negative, Urine Urobilinogen Normal, Ur Leukocyte Esterase 500 H, Urine RBC 0-5 SEEN, Urine WBC 25-50 SEEN, Ur Squamous Epith Cells 10-25 SEEN, Urine Bacteria 1+, Urine Mucus 0 SEEN 11/22/23 05:55: WBC 9.2, RBC 2.98 L, Hgb 8.7 L, Hct 28.1 L, MCV 94.3, MCH 29.2, MCHC 31.0 L, RDW Std Deviation 52.4 H, RDW Coeff of Deyvi 15.2 H, Plt Count 236, MPV 9.4, Immature Gran % (Auto) 0.400, Neut % (Auto) 73.4 H, Lymph % (Auto) 14.8 L, Harper % (Auto) 8.8, Eos % (Auto) 2.4, Baso % (Auto) 0.2, Absolute Neuts (auto) 6.8, Absolute Lymphs (auto) 1.36, Nucleated RBC % 0, Sodium 136, Potassium 3.7, Chloride 105, Carbon Dioxide 26.0, Anion Gap 5, BUN 12, Creatinine 1.27 H, Estim Creat Clear Calc 74.96, Est GFR (MDRD) Af Amer 61, Est GFR (MDRD) Non-Af 51 L, BUN/Creatinine Ratio 9.4 L, Glucose 99, Calcium 8.8 Imaging Radiology Impression Abdomen/Pelvis CT 11/21/23 08:27 IMPRESSION: Left perinephric stranding associated with interval decrease in size of a cystic focus arising from the left kidney measuring 2.0 x 1.3 x 1.9 cm suggestive of a ruptured renal cyst, cannot entirely exclude an abscess. New mild left-sided hydronephrosis. Status post cholecystectomy. Electronically Signed: Shelly Dooley MD at 9:41 EDT ,
[2023-11-22 08:18] VITALS: BP 113/78; PULSE 79; RESP 18; TEMP 36.9; O2SAT 97
[2023-11-22] MEDS: 0.9% Saline Lock 10 ML Syringe IV ×3 (10:01→16:28)
[2023-11-22] MEDS: Ceftriaxone 1 GM/50 ML BAG IV (10:01)
[2023-11-22] MEDS: 0.9% Normal Saline (1000mL) 1,000 ML 100 ML IV ×2 (10:01→20:39)
[2023-11-22] MEDS: Pantoprazole Sodium 40 MG Tablet PO (10:02)
[2023-11-22] MEDS: APIXABAN 5 MG TABLET PO (10:02)
--- NOTE | 2023-11-22 11:10 | CASEMGMT ---
MORGAN HORNE Assessment: Face to Face with pt for initial transition planning/care coordination assessment. MORGAN HORNE introduced self and role at [facility], pt voices understanding and consents to assessment. Pt is A&O x4 and answers all questions appropriately at this time. Pt lying in bed in no distress. Care providers, pharmacy, and demographics verified/updated. Admitting Dx: left renal pain, cyst rupture PCP:Ingrid Specialists:Sloan, colorectal OR Preferred Pharmacy: [facility] Insurance: [place] [employer] Prescription Benefit: yes LNOK: Steffany Avitia, mother Living Arrangements: Pt lives with son and boyfriend in a single story home with no steps to enter. Pt reports she is I in ADL's and denies concerns at home. Transportation: Pt can drive but has not due to surgeries lately. Pt parents have been transporting her to medical appts. DME:[facility] but does not use HHC/SNF: Denies hx of. Has been in LTACH in [place]- cannot recall name. Pt states no concerns with going home at time of dc. Pt has a CHRISTOS drain and states that she is I in the care for it. She states she was supposed to have had it taken out tomorrow in [place]. She will discuss with nurse to see if it is a possibility to be done here. Pt states no further concerns/needs. CM to follow. Advised pt to ask CM if any further question/concerns/needs arise, voices understanding. Pt Goal: Home Plan: Home Brittany MORA CM
[2023-11-22 13:11] VITALS: BP 117/82; PULSE 84; RESP 18; TEMP 36.6; O2SAT 99
--- NOTE | 2023-11-22 16:24 | PN.HOSP_ITS ---
Reason for Visit Reason for Visit: Diagnoses Hydroureter (11/21/23) Urinary tract infection, site not specified (11/21/23) Unspecified abdominal pain (11/21/23) Objective Data Objective Data Vital Signs: Vital Signs Temp Pulse Resp BP Pulse Ox O2 Del Method 97.8 F 84 18 117/82 H 99 Room Air 11/22/23 13:11 11/22/23 13:11 11/22/23 13:11 11/22/23 13:11 11/22/23 13:11 11/22/23 13:11 Oxygen Delivery Method Room Air Weight: 234 lb 12.677 oz Body Mass Index (BMI) 39.1 Intake & Output: Intake and Output for Last 24 Hours 11/20/23 11/21/23 11/22/23 23:59 23:59 23:59 Intake Total 2024 1250 / 1250 Output Total Balance 2014 1250 / 1250 Lab / Micro Data 11/22/23 05:55 11/22/23 05:55 Labs: Laboratory Results - last 24 hr 11/22/23 05:55: WBC 9.2, RBC 2.98 L, Hgb 8.7 L, Hct 28.1 L, MCV 94.3, MCH 29.2, MCHC 31.0 L, RDW Std Deviation 52.4 H, RDW Coeff of Deyvi 15.2 H, Plt Count 236, MPV 9.4, Immature Gran % (Auto) 0.400, Neut % (Auto) 73.4 H, Lymph % (Auto) 14.8 L, [place] % (Auto) 8.8, Eos % (Auto) 2.4, Baso % (Auto) 0.2, Absolute Neuts (auto) 6.8, Absolute Lymphs (auto) 1.36, Nucleated RBC % 0, Sodium 136, Potassium 3.7, Chloride 105, Carbon Dioxide 26.0, Anion Gap 5, BUN 12, Creatinine 1.27 H, Estim Creat Clear Calc 74.96, Est GFR (MDRD) Af Amer 61, Est GFR (MDRD) Non-Af 51 L, B UN/Creatinine Ratio 9.4 L, Glucose 99, Calcium 8.8 Micro: Microbiology 11/21/23 09:09 Urine, Clean Catch Urine Culture - Preliminary GNR lactose betting agency manager Physical Exam Narrative Seen and examined. Left flank pain is better controlled on Dilaudid. Patient did not had any fever or chills. Plan for cystoscopy and left ureteric stenting. Physical exam General: Alert, Oriented x3, Cooperative, obesity grade 2 BMI 38.7 kg/m?. HEENT: Atraumatic, PERRLA, EOMI, Normocephalic Oral: Oral mucosa dry. No Gingival or Mucosal Lesions/ Ulcerations Neck: Supple, No JVD, Negative Carotid Bruits Chest wall/Lungs: Air entry diminished in bilateral lung bases. No crepitation/rhonchi Cardiovascular: Regular rate, Regular Rhythm, Normal S1, Normal S2, No M/G/R Abdomen: Colostomy present. CHRISTOS drain clear, mainly serous fluid. No RUQ tenderness. Bowel Sounds sluggish. Soft. Nondistended : Left renal angle tenderness. No dysuria. No suprapubic tenderness. Extremities: No edema, Capillary Refill Less than 3 Seconds Skin: No rashes, No breakdown Musculoskeletal: No Tenderness to Palpation of Joints or Extremities Neurological: Cranial nerves II-XII grossly intact, DTR 2+/4. No acute focal neurological deficit. Psych/Mental Status: Flat affect. Assessment & Plan Assessment/Plan (1) Acute left flank pain: PLAN: Plan This 33-year-old female with multiple comorbidities came to ER with left flank pain. 1. Left flank pain probably from left kidney cyst rupture complicated with left perinephric stranding and mild left hydronephrosis: [facility] UA shows WBC 25?50 cells, LE 500 but negative nitrite, squamous cells 10-25 cells, 1+ bacteria. CT scan showing left perinephric stranding probably inflammation from pyelonephritis with interval decrease in size of left kidney cyst 2.0 x 1.3 x 1.9 cm history of ruptured renal cyst. Urologist is consulted. Pain control with Tylenol and Dilaudid. IV fluid normal saline. Urine culture is ordered. 11/21: Prelim urine culture shows GNR lactose betting agency manager. Continue IV antibiotic. Patient was evaluated by the urologist. Plan for cystoscopy tomorrow, retrograde ureteroscopy and attempt to place a stent left side and drain the infection. 2. Recently had cholecystectomy with CHRISTOS drain: About 10 days ago patient was supposed to CHRISTOS drain removed but at the same time she got left flank pain and was admitted for 1 week in [facility] before this second episode as mentioned above. 3. 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 Patient denies history of diabetes mellitus But has metabolic syndrome. Glucose 117. A1c on 10/29/2023 5.2%. 4. Right lower extremity DVT: On Eliquis continued 5. WANDA on CKD stage II: Baseline BUNs/creatinine 16/1.07. Patient admitted with UA/creatinine 14/1.39. Continue IV fluid. 6. Other multiple comorbidities include goiter, history of chronic anemia and morbid obesity: BMI 38.7 kg/m? Living will/advanced directive/end of life care: Patient does not have living will or advanced directive. I talked to her mother near the bedside. After discussion of benefits/risks procedures involved with full code, DNR CC arrest and DNR CC, the patient opted for full code. Patient does want artificial life support including intubation, tube feed, ventilator and/chest compression, central venous catheter, vasopressor and DC shock if needed Total time spent in [id number] encounter in discussion of advanced directive 17 minutes. Microbiology Past 72 Hours 11/21/23 09:09 Urine, Clean Catch Urine Culture - Preliminary GNR lactose betting agency manager Laboratory Results 11/22/23 05:55: WBC 9.2, RBC 2.98 L, Hgb 8.7 L, Hct 28.1 L, MCV 94.3, MCH 29.2, MCHC 31.0 L, RDW Std Deviation 52.4 H, RDW Coeff of Deyvi 15.2 H, Plt Count 236, MPV 9.4, Immature Gran % (Auto) 0.400, Neut % (Auto) 73.4 H, Lymph % (Auto) 14.8 L, [place] % (Auto) 8.8, Eos % (Auto) 2.4, Baso % (Auto) 0.2, Absolute Neuts (auto) 6.8, Absolute Lymphs (auto) 1.36, Nucleated RBC % 0, Sodium 136, Potassium 3.7, Chloride 105, Carbon Dioxide 26.0, Anion Gap 5, BUN 12, Creatinine 1.27 H, Estim Creat Clear Calc 74.96, Est GFR (MDRD) Af Amer 61, Est GFR (MDRD) Non-Af 51 L, B UN/Creatinine Ratio 9.4 L, Glucose 99, Calcium 8.8 Clinical Impression(s) from Imaging Studies Abdomen/Pelvis CT 11/21/23 08:27 IMPRESSION: Left perinephric stranding associated with interval decrease in size of a cystic focus arising from the left kidney measuring 2.0 x 1.3 x 1.9 cm suggestive of a ruptured renal cyst, cannot entirely exclude an abscess. New mild left-sided hydronephrosis. Status post cholecystectomy. Charges/Coding Visit Charges Inpatient E&M: 39079 Subs Hosp L2
[2023-11-22 16:27] VITALS: BP 116/74; PULSE 79; RESP 18; TEMP 36.6; O2SAT 99
[2023-11-22 20:24] VITALS: BP 103/58; PULSE 84; RESP 16; TEMP 36.6; O2SAT 97
[2023-11-22] MEDS: Senna/Docusate Sodium 1 Tablet 2 TABLET PO (20:43)
[2023-11-22 22:55] LABS: Internal QC Validated? YES +Cl - CLEAR BKGD; Pregnancy, Urine Negative Negative
[2023-11-23] VITALS (13 sets, daily range): BP systolic 114–134; BP diastolic 66–97; PULSE 72–89; RESP 16–18; TEMP 36.5–37.1; O2SAT 92–100; BMI 38.9
[2023-11-23] MEDS: HYDROmorphone 1 MG/ML Syringe IV ×6 (01:29→20:37)
[2023-11-23] MEDS: 0.9% Normal Saline (1000mL) 1,000 ML 100 ML IV ×2 (05:48→20:38)
[2023-11-23 06:24] LABS: Absolute Lymphocyte Count 1.12 X10^3/uL (0.83-4.51); Absolute Neutrophil Count 5.2 X10^3/uL (2.0-7.7); Basophil# 0.03 X10^3/uL; Basophil% 0.4 % (0-1); Eosinophil# 0.27 X10^3/uL; Eosinophils% 3.8 % (0-5); Hematocrit 27.2 % (37-47); Hemoglobin 8.4 g/dL (12.0-15.0); Lymphocyte # 1.12 X10^3/ul (0.83-4.51); Lymphocyte % 15.7 % (19-41); Mean Corp Hgb Conc 30.9 g/dL (32-36); Mean Corpuscular Hgb 29.1 pg (27.0-32.0); Mean Corpuscular Volume 94.1 fL (81-99); Mean Platelet Vol. 9.6 fl (6.2-12.0); Monocyte# 0.53 X10^3/uL; Monocyte% 7.4 % (0-10); NRBC Flagged by Analyzer 0 % (0-5); Neutrophil # 5.17 X10^3/uL (2.7-7.7); Neutrophil % 72.3 % (47-70); Platelet Count 210 K/mm3 (150-450); RBC Distribution Width CV 14.9 % (11.6-14.6); RBC Distribution Width SD 52.5 fl (35.1-43.9); Red Blood Count 2.89 M/mm3 (4.2-5.4); White Blood Count 7.2 K/mm3 (4.4-11.0)
[2023-11-23 06:47] LABS: Anion Gap 6 (5-15); BUN 11 mg/dL (7-18); BUN/Creat Ratio 10.9 RATIO (10-20); Calcium,Total 8.7 mg/dL (8.5-10.1); Chloride 109 mmol/L (98-107); Creatinine, Serum 1.01 mg/dL (0.55-1.02); EST Glomerular Filtration Rate 66 mL/min (>60); Est Glom Filt Rate - Afr Amer 80 mL/min (>60); Estimated Creatinine Clearance 94.11 ml/min; Glucose 102 mg/dL (74-106); International Normalized Ratio 1.3; Potassium 3.7 mmol/L (3.5-5.1); Prothrombin Time (Protime)PT. 16.2 SECONDS (11.7-14.9); Sodium Level 136 mmol/L (136-145)
[2023-11-23 06:48] LABS: Partial Thromboplast Time 46.6 Seconds (24.1-36.2)
[2023-11-23] MEDS: 0.9% Saline Lock 10 ML Syringe IV ×3 (07:53→17:42)
[2023-11-23] MEDS: Ceftriaxone 1 GM/50 ML BAG IV (10:09)
--- NOTE | 2023-11-23 14:11 | PCM.OPRPT ---
Report of Operation Date of Procedure: 11/23/23 Pre-Operative Diagnosis: Infected left kidney pyelonephritis with abscess formation Post-Operative Diagnosis: The same Surgery/Procedure Performed:: Cystoscopy left retrograde pyelogram and left stent placement Description of Surgical Findings:: Indication is a 33-year-old female recently had surgery for her colon for appear to be like an infection and also had her gallbladder removed she still has a gallbladder drain and this was done at [facility]. She presented here to [facility] looks like she has like an abscess that is forming in her left kidney upper pole that is connected to the collecting system and she is got some hydronephrosis in the left system I suspect he is got an infection in the left kidney is not draining out and she started fistulizing forming abscess in the upper pole the left kidney so today we will do a retrograde to confirm and then placed a stent to help drain this infection. 33-year-old female was taken back to the operative medicine induction of anesthesia Suplasyn dorsolithotomy position went into the bladder with a 21 Upper Sorbian rigid cystourethroscope cannulated the left ureter orifice did retrograde pyelogram see contrast going up contrast filling the collecting system and completely abnormal look like she has a fistulizing tract in the upper part going to a fistula pocket in the upper part I then aspirated back in the ureteral catheter and aspirated purulent urine from the left kidney this was sent off as a culture and then coiled wire in the upper pole the left kidney and then we placed a stent it was a 6 Upper Sorbian by 26 mm stent on the left side hopefully this will help drain this infection out and then we can probably remove the stent in about a month will send out the urine for culture and we should tailor antibiotics according to the culture results. But again the urine from the left kidney was straight purulent urine, wilian yellow. Surgeon: Nigel Zavala Type of Anesthesia: General Drains: stent Admit VTE Documentation VTE Present on Admission: No VTE Mechan Device Prophylaxis: SCD's VTE Pharm Prophylaxis ordered?: No
--- NOTE | 2023-11-23 16:44 | PCM.PN.HOSP ---
Reason for Visit Reason for Visit: Diagnoses Hydroureter (11/21/23) Urinary tract infection, site not specified (11/21/23) Unspecified abdominal pain (11/21/23) Objective Data Objective Data Vital Signs: Vital Signs Temp Pulse Resp BP Pulse Ox O2 Del Method 98.6 F 74 18 120/66 98 Room Air 11/23/23 15:37 11/23/23 15:37 11/23/23 15:37 11/23/23 15:37 11/23/23 15:37 11/23/23 15:37 Oxygen Delivery Method Room Air Weight: 234 lb 2.095 oz Body Mass Index (BMI) 38.9 Intake & Output: Intake and Output for Last 24 Hours 11/21/23 11/22/23 11/23/23 23:59 23:59 23:59 Intake Total 2024 2550 / 2550 1215 / 1215 Output Total Balance 2014 2550 / 2550 1215 / 1215 Lab / Micro Data 11/23/23 06:16 11/23/23 06:16 Labs: Laboratory Results - last 24 hr 11/22/23 22:30: Urine Test Negative 11/23/23 06:16: WBC 7.2, RBC 2.89 L, Hgb 8.4 L, Hct 27.2 L, MCV 94.1, MCH 29.1, MCHC 30.9 L, RDW Std Deviation 52.5 H, RDW Coeff of Deyvi 14.9 H, Plt Count 210, MPV 9.6, Immature Gran % (Auto) 0.400, Neut % (Auto) 72.3 H, Lymph % (Auto) 15.7 L, [place] % (Auto) 7.4, Eos % (Auto) 3.8, Baso % (Auto) 0.4, Absolute Neuts (auto) 5.2, Absolute Lymphs (auto) 1.12, Nucleated RBC % 0, PT 16.2 H, INR 1.3, APTT 46.6 H, Sodium 136, Potassium 3.7, Chloride 109 H, Carbon Dioxide 21.0, Anion Gap 6, BUN 11, Creatinine 1.01, Estim Creat Clear Calc 94.11, Est GFR (MDRD) Af Amer 80, Est GFR (MDRD) Non-Af 66, BUN/Creatinine Ratio 10.9, Glucose 102, Calcium 8.7 Micro: Microbiology 11/21/23 09:09 Urine, Clean Catch Urine Culture - Final Klebsiella pneumoniae sp pneum Physical Exam Narrative Seen and examined. Left flank pain is better controlled on Dilaudid. Patient did not had any fever or chills. Patient going for cystoscopy and left ureteroscopy. Physical exam General: Alert, Oriented x3, Cooperative, obesity grade 2 BMI 38.7 kg/m?. HEENT: Atraumatic, PERRLA, EOMI, Normocephalic Oral: Oral mucosa dry. No Gingival or Mucosal Lesions/ Ulcerations Neck: Supple, No JVD, Negative Carotid Bruits Chest wall/Lungs: Air entry diminished in bilateral lung bases. No crepitation/rhonchi Cardiovascular: Regular rate, Regular Rhythm, Normal S1, Normal S2, No M/G/R Abdomen: Colostomy present. CHRISTOS drain clear, mainly serous fluid. No RUQ tenderness. Bowel Sounds sluggish. Soft. Nondistended : Left renal angle tenderness Still present. No dysuria. No suprapubic tenderness. Extremities: No edema, Capillary Refill Less than 3 Seconds Skin: No rashes, No breakdown Musculoskeletal: No Tenderness to Palpation of Joints or Extremities Neurological: Cranial nerves II-XII grossly intact, DTR 2+/4. No acute focal neurological deficit. Psych/Mental Status: Flat affect. Assessment & Plan Assessment/Plan (1) Acute left flank pain: PLAN: Plan This 33-year-old female with multiple comorbidities came to ER with left flank pain. 1. Left flank pain probably from left kidney cyst rupture complicated with left perinephric stranding and mild left hydronephrosis: Patient is being admitted on [facility] floor. UA shows WBC 25?50 cells, LE 500 but negative nitrite, squamous cells 10-25 cells, 1+ bacteria. CT scan showing left perinephric stranding probably inflammation from pyelonephritis with interval decrease in size of left kidney cyst 2.0 x 1.3 x 1.9 cm history of ruptured renal cyst. Urologist is consulted. Pain control with Tylenol and Dilaudid. IV fluid normal saline. Urine culture is ordered. 11/21: Prelim urine culture shows GNR lactose social worker health services. Continue IV antibiotic. Patient was evaluated by the urologist. Plan for cystoscopy tomorrow, retrograde ureteroscopy and attempt to place a stent left side and drain the infection. 11/22: Patient had cystoscopy with left retrograde pyelogram and ureteric stent placement. From the operative note it seems contrast filling the collecting system was abnormal with fistulizing tract in the upper part going to a pocket which was aspirated, purulent in nature. Stent was placed. Leukocytosis resolved. Urine culture growing prelim Klebsiella pneumoniae [id number] sensitive to ceftriaxone. 2. Recently had cholecystectomy with CHRISTOS drain: About 10 days ago patient was supposed to CHRISTOS drain removed but at the same time she got left flank pain and was admitted for 1 week in [facility] before this second episode as mentioned above. 3. 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 Patient denies history of diabetes mellitus But has metabolic syndrome. Glucose 117. A1c on 10/29/2023 5.2%. 4. Right lower extremity DVT: On Eliquis continued 5. WANDA on CKD stage II: Baseline BUNs/creatinine 16/1.07. Patient admitted with UA/creatinine 14/1.39. Continue IV fluid. 6. Other multiple comorbidities include goiter, history of chronic anemia and morbid obesity: BMI 38.7 kg/m? Living will/advanced directive/end of life care: Patient does not have living will or advanced directive. I talked to her mother near the bedside. After discussion of benefits/risks procedures involved with full code, DNR CC arrest and DNR CC, the patient opted for full code. Patient does want artificial life support including intubation, tube feed, ventilator and/chest compression, central venous catheter, vasopressor and DC shock if needed Microbiology Past 72 Hours 11/21/23 09:09 Urine, Clean Catch Urine Culture - Final Klebsiella pneumoniae sp pneum Laboratory Results 11/22/23 22:30: Urine Test Negative 11/23/23 06:16: WBC 7.2, RBC 2.89 L, Hgb 8.4 L, Hct 27.2 L, MCV 94.1, MCH 29.1, MCHC 30.9 L, RDW Std Deviation 52.5 H, RDW Coeff of Deyvi 14.9 H, Plt Count 210, MPV 9.6, Immature Gran % (Auto) 0.400, Neut % (Auto) 72.3 H, Lymph % (Auto) 15.7 L, [place] % (Auto) 7.4, Eos % (Auto) 3.8, Baso % (Auto) 0.4, Absolute Neuts (auto) 5.2, Absolute Lymphs (auto) 1.12, Nucleated RBC % 0, PT 16.2 H, INR 1.3, APTT 46.6 H, Sodium 136, Potassium 3.7, Chloride 109 H, Carbon Dioxide 21.0, Anion Gap 6, BUN 11, Creatinine 1.01, Estim Creat Clear Calc 94.11, Est GFR (MDRD) Af Amer 80, Est GFR (MDRD) Non-Af 66, BUN/Creatinine Ratio 10.9, Glucose 102, Calcium 8.7 Clinical Impression(s) from Imaging Studies Abdomen/Pelvis CT 11/21/23 08:27 IMPRESSION: Left perinephric stranding associated with interval decrease in size of a cystic focus arising from the left kidney measuring 2.0 x 1.3 x 1.9 cm suggestive of a ruptured renal cyst, cannot entirely exclude an abscess. New mild left-sided hydronephrosis. Status post cholecystectomy. Charges/Coding Visit Charges Inpatient E&M: 94034 Subs Hosp L2
[2023-11-23] MEDS: APIXABAN 5 MG TABLET PO (20:39)
[2023-11-23] MEDS: Lactobacillis Acidophilus 1 CAP PO (20:39)
[2023-11-23] MEDS: Acetaminophen 500 MG Tablet 1000 MG PO (20:40)
[2023-11-23] MEDS: Senna/Docusate Sodium 1 Tablet 2 TABLET PO (20:49)
[2023-11-24] MEDS: HYDROmorphone 1 MG/ML Syringe IV ×4 (00:12→09:36)
[2023-11-24 03:48] VITALS: BP 116/73; PULSE 62; RESP 16; TEMP 36.6; O2SAT 96
[2023-11-24 03:52] VITALS: BMI 38.9
[2023-11-24] MEDS: Acetaminophen 500 MG Tablet 1000 MG PO ×3 (06:29→22:59)
[2023-11-24] MEDS: Lactobacillis Acidophilus 1 CAP PO ×3 (06:29→22:58)
[2023-11-24] MEDS: 0.9% Normal Saline (1000mL) 1,000 ML 100 ML IV ×2 (06:30→16:58)
--- NOTE | 2023-11-24 07:29 | PCM.CONS.B ---
Consult Date of Consult: 11/24/23 Reason for Consult 33-year-old female status post cystoscopy and stent placement for an infected left kidney that was developing an abscess which was connected to the collecting system. Stent is in place should be draining this out. She had purulent urine coming from that left kidney. This was sent off for culture. Little bit suspicious that it could be yeast infection but we will see what the culture demonstrates she is currently on ceftriaxone for a infection from the urine culture but the culture from the kidney could be different while to follow-up on this. Told the patient to find the stent for about a month and told her that it is important to rehab the stent removed about a month from now.
[2023-11-24 07:56] LABS: Absolute Lymphocyte Count 1.12 X10^3/uL (0.83-4.51); Basophil# 0.01 X10^3/uL; Basophil% 0.2 % (0-1); Eosinophil# 0.01 X10^3/uL; Eosinophils% 0.2 % (0-5); Hemoglobin 8.2 g/dL (12.0-15.0); Lymphocyte # 1.12 X10^3/ul (0.83-4.51); Lymphocyte % 20.3 % (19-41); Mean Corp Hgb Conc 30.4 g/dL (32-36); Mean Corpuscular Hgb 28.7 pg (27.0-32.0); Mean Corpuscular Volume 94.4 fL (81-99); Monocyte# 0.39 X10^3/uL; Monocyte% 7.1 % (0-10); NRBC Flagged by Analyzer 0 % (0-5); Neutrophil # 3.95 X10^3/uL (2.7-7.7); Neutrophil % 71.7 % (47-70); POSITIVE COUNT YES; RBC Distribution Width CV 14.6 % (11.6-14.6); RBC Distribution Width SD 50.5 fl (35.1-43.9); Red Blood Count 2.86 M/mm3 (4.2-5.4); White Blood Count 5.5 K/mm3 (4.4-11.0)
[2023-11-24 08:30] LABS: Anion Gap 5 (5-15); BUN 12 mg/dL (7-18); BUN/Creat Ratio 10.6 RATIO (10-20); Calcium,Total 8.9 mg/dL (8.5-10.1); Chloride 112 mmol/L (98-107); Creatinine, Serum 1.13 mg/dL (0.55-1.02); EST Glomerular Filtration Rate 58 mL/min (>60); Est Glom Filt Rate - Afr Amer 70 mL/min (>60); Estimated Creatinine Clearance 83.98 ml/min; Glucose 132 mg/dL (74-106); Potassium 3.8 mmol/L (3.5-5.1); Sodium Level 137 mmol/L (136-145)
[2023-11-24 08:46] VITALS: BP 116/71; PULSE 69; RESP 16; TEMP 36.6; O2SAT 94
[2023-11-24 09:05] LABS: Differential Indicated SCAN CRITERIA MET
[2023-11-24 09:07] LABS: Differential Comment SCANNED; Platelet Estimate ADEQUATE (ADEQ)
[2023-11-24] MEDS: Pantoprazole Sodium 40 MG Tablet PO (09:30)
[2023-11-24] MEDS: Ceftriaxone 1 GM/50 ML BAG IV (09:30)
[2023-11-24] MEDS: APIXABAN 5 MG TABLET PO ×2 (09:30→22:58)
[2023-11-24 11:26] VITALS: BP 105/59; PULSE 73; RESP 16; TEMP 36.6; O2SAT 96
--- NOTE | 2023-11-24 12:50 | PCM.PN.HOSP ---
Reason for Visit Reason for Visit: Diagnoses Hydroureter (11/21/23) Urinary tract infection, site not specified (11/21/23) Unspecified abdominal pain (11/21/23) Objective Data Objective Data Vital Signs: Vital Signs Temp Pulse Resp BP Pulse Ox O2 Del Method 97.9 F 73 16 105/59 L 96 Room Air 11/24/23 11:26 11/24/23 11:26 11/24/23 11:26 11/24/23 11:26 11/24/23 11:26 11/24/23 11:26 Oxygen Delivery Method Room Air Weight: 233 lb 7.512 oz Body Mass Index (BMI) 38.9 Intake & Output: Intake and Output for Last 24 Hours 11/22/23 11/23/23 11/24/23 23:59 23:59 23:59 Intake Total 2550 / 2550 3015 / 3015 1386.67 / 1386.67 Balance 2550 / 2550 3015 / 3015 1386.67 / 1386.67 Lab / Micro Data 11/24/23 07:33 11/24/23 07:33 Labs: Laboratory Results - last 24 hr 11/24/23 07:33: WBC 5.5, RBC 2.86 L, Hgb 8.2 L, Hct 27.0 L, MCV 94.4, MCH 28.7, MCHC 30.4 L, RDW Std Deviation 50.5 H, RDW Coeff of Deyvi 14.6, Plt Count , Immature Gran % (Auto) 0.500, Neut % (Auto) 71.7 H, Lymph % (Auto) 20.3, [place] % (Auto) 7.1, Eos % (Auto) 0.2, Baso % (Auto) 0.2, Absolute Neuts (auto) 4.0, Absolute Lymphs (auto) 1.12, Nucleated RBC % 0, Differential Comment SCANNED, Platelet Estimate ADEQUATE, Sodium 137, Potassium 3.8, Chloride 112 H, Carbon Dioxide 20.0 L, Anion Gap 5, BUN 12, Creatinine 1.13 H, Estim Creat Clear Calc 83.98, Est GFR (MDRD) Af Amer 70, Est GFR (MDRD) Non-Af 58 L, BUN/Creatinine Ratio 10.6, Glucose 132 H, Calcium 8.9 Micro: Microbiology 11/23/23 Unknown Urine, Cystoscopy Urine Culture - Preliminary Gram negative maria c 11/21/23 09:09 Urine, Clean Catch Urine Culture - Final Klebsiella pneumoniae sp pneum Physical Exam Narrative Seen and examined. Left flank pain is better controlled on Dilaudid. Dilaudid changed to oxycodone. Patient did not had any fever or chills. Patient had cystoscopy and left ureteroscopy. Waiting for urine culture from ureteroscopy. Physical exam General: Alert, Oriented x3, Cooperative, obesity grade 2 BMI 38.7 kg/m?. HEENT: Atraumatic, PERRLA, EOMI, Normocephalic Oral: Oral mucosa moist. No Gingival or Mucosal Lesions/ Ulcerations Neck: Supple, No JVD, Negative Carotid Bruits Chest wall/Lungs: Air entry diminished in bilateral lung bases. No crepitation/rhonchi Cardiovascular: Regular rate, Regular Rhythm, Normal S1, Normal S2, No M/G/R Abdomen: Colostomy present. CHRISTOS drain clear, mainly serous fluid. No RUQ tenderness. Bowel Sounds sluggish. Soft. Nondistended : Left renal angle tenderness Still present. No dysuria. No suprapubic tenderness. Extremities: No edema, Capillary Refill Less than 3 Seconds Skin: No rashes, No breakdown Musculoskeletal: No Tenderness to Palpation of Joints or Extremities Neurological: Cranial nerves II-XII grossly intact, DTR 2+/4. No acute focal neurological deficit. Psych/Mental Status: Flat affect. Assessment & Plan Assessment/Plan (1) Acute left flank pain: PLAN: Plan This 33-year-old female with multiple comorbidities came to ER with left flank pain. 1. Left flank pain probably from left kidney cyst rupture complicated with left perinephric stranding and mild left hydronephrosis: Patient is being admitted on [facility] floor. UA shows WBC 25?50 cells, LE 500 but negative nitrite, squamous cells 10-25 cells, 1+ bacteria. CT scan showing left perinephric stranding probably inflammation from pyelonephritis with interval decrease in size of left kidney cyst 2.0 x 1.3 x 1.9 cm history of ruptured renal cyst. Urologist is consulted. Pain control with Tylenol and Dilaudid. IV fluid normal saline. Urine culture is ordered. 11/21: Prelim urine culture shows GNR lactose career services coordinator. Continue IV antibiotic. Patient was evaluated by the urologist. Plan for cystoscopy tomorrow, retrograde ureteroscopy and attempt to place a stent left side and drain the infection. 11/22: Patient had cystoscopy with left retrograde pyelogram and ureteric stent placement. From the operative note it seems contrast filling the collecting system was abnormal with fistulizing tract in the upper part going to a pocket which was aspirated, purulent in nature. Stent was placed. Leukocytosis resolved. Urine culture growing prelim Klebsiella pneumoniae [id number] sensitive to ceftriaxone. 11/23: Ureteroscopic urine culture shows GNR [id number] colonies. Follow full culture and send depending. Anticipate fluid culture tomorrow therefore discharged tomorrow. 2. Recently had cholecystectomy with CHRISTOS drain: About 10 days ago patient was supposed to CHRISTOS drain removed but at the same time she got left flank pain and was admitted for 1 week in [facility] before this second episode as mentioned above. 3. 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 Patient denies history of diabetes mellitus But has metabolic syndrome. Glucose 117. A1c on 10/29/2023 5.2%. 4. Right lower extremity DVT: On Eliquis continued 5. WANDA on CKD stage II: Baseline BUNs/creatinine 161.07. Patient admitted with UA/creatinine 14/1.39. Continue IV fluid. 6. Other multiple comorbidities include goiter, history of chronic anemia and morbid obesity: BMI 38.7 kg/m? Living will/advanced directive/end of life care: Patient does not have living will or advanced directive. I talked to her mother near the bedside. After discussion of benefits/risks procedures involved with full code, DNR CC arrest and DNR CC, the patient opted for full code. Patient does want artificial life support including intubation, tube feed, ventilator and/chest compression, central venous catheter, vasopressor and DC shock if needed Microbiology Past 72 Hours 11/23/23 Unknown Urine, Cystoscopy Urine Culture - Preliminary Gram negative maria c 11/21/23 09:09 Urine, Clean Catch Urine Culture - Final Klebsiella pneumoniae sp pneum Laboratory Results 11/24/23 07:33: WBC 5.5, RBC 2.86 L, Hgb 8.2 L, Hct 27.0 L, MCV 94.4, MCH 28.7, MCHC 30.4 L, RDW Std Deviation 50.5 H, RDW Coeff of Deyvi 14.6, Plt Count , Immature Gran % (Auto) 0.500, Neut % (Auto) 71.7 H, Lymph % (Auto) 20.3, [place] % (Auto) 7.1, Eos % (Auto) 0.2, Baso % (Auto) 0.2, Absolute Neuts (auto) 4.0, Absolute Lymphs (auto) 1.12, Nucleated RBC % 0, Differential Comment SCANNED, Platelet Estimate ADEQUATE, Sodium 137, Potassium 3.8, Chloride 112 H, Carbon Dioxide 20.0 L, Anion Gap 5, BUN 12, Creatinine 1.13 H, Estim Creat Clear Calc 83.98, Est GFR (MDRD) Af Amer 70, Est GFR (MDRD) Non-Af 58 L, BUN/Creatinine Ratio 10.6, Glucose 132 H, Calcium 8.9 Clinical Impression(s) from Imaging Studies Abdomen/Pelvis CT 11/21/23 08:27 IMPRESSION: Left perinephric stranding associated with interval decrease in size of a cystic focus arising from the left kidney measuring 2.0 x 1.3 x 1.9 cm suggestive of a ruptured renal cyst, cannot entirely exclude an abscess. New mild left-sided hydronephrosis. Status post cholecystectomy. Charges/Coding Visit Charges Inpatient E&M: 04554 Subs Hosp L2
[2023-11-24] MEDS: oxyCODONE 5 MG Tablet PO ×3 (13:59→22:58)
[2023-11-24 16:05] VITALS: BP 112/71; PULSE 76; RESP 16; TEMP 36.6; O2SAT 96
[2023-11-24 23:12] VITALS: BP 128/84; PULSE 66; RESP 16; TEMP 36.8; O2SAT 99
[2023-11-24] MEDS: MELATONIN 10 MG TABLET PO (23:29)
[2023-11-24] MEDS: Senna/Docusate Sodium 1 Tablet 2 TABLET PO (23:30)
[2023-11-25] MEDS: 0.9% Normal Saline (1000mL) 1,000 ML 100 ML IV (02:08)
[2023-11-25 04:25] VITALS: BMI 38.9
[2023-11-25] MEDS: oxyCODONE 5 MG Tablet PO ×3 (04:27→13:01)
[2023-11-25] MEDS: Lactobacillis Acidophilus 1 CAP PO (04:28)
[2023-11-25] MEDS: Acetaminophen 500 MG Tablet 1000 MG PO (04:28)
[2023-11-25 04:34] VITALS: BP 119/78; PULSE 64; RESP 16; TEMP 36.6; O2SAT 98
[2023-11-25 05:00] LABS: Absolute Lymphocyte Count 2.02 X10^3/uL (0.83-4.51); Absolute Neutrophil Count 2.3 X10^3/uL (2.0-7.7); Basophil# 0.03 X10^3/uL; Basophil% 0.6 % (0-1); Eosinophil# 0.07 X10^3/uL; Eosinophils% 1.5 % (0-5); Hematocrit 25.1 % (37-47); Hemoglobin 7.8 g/dL (12.0-15.0); Lymphocyte # 2.02 X10^3/ul (0.83-4.51); Lymphocyte % 43.3 % (19-41); Mean Corp Hgb Conc 31.1 g/dL (32-36); Mean Corpuscular Hgb 29.2 pg (27.0-32.0); Mean Platelet Vol. 9.7 fl (6.2-12.0); Monocyte# 0.25 X10^3/uL; Monocyte% 5.4 % (0-10); NRBC Flagged by Analyzer 0 % (0-5); Neutrophil # 2.25 X10^3/uL (2.7-7.7); Neutrophil % 48.3 % (47-70); Platelet Count 229 K/mm3 (150-450); RBC Distribution Width CV 14.7 % (11.6-14.6); RBC Distribution Width SD 50.4 fl (35.1-43.9); Red Blood Count 2.67 M/mm3 (4.2-5.4); White Blood Count 4.7 K/mm3 (4.4-11.0)
[2023-11-25 05:24] LABS: Anion Gap 6 (5-15); BUN 15 mg/dL (7-18); BUN/Creat Ratio 14.2 RATIO (10-20); Calcium,Total 8.4 mg/dL (8.5-10.1); Chloride 114 mmol/L (98-107); Creatinine, Serum 1.06 mg/dL (0.55-1.02); EST Glomerular Filtration Rate 63 mL/min (>60); Est Glom Filt Rate - Afr Amer 76 mL/min (>60); Estimated Creatinine Clearance 89.53 ml/min; Glucose 96 mg/dL (74-106); Potassium 3.2 mmol/L (3.5-5.1); Sodium Level 142 mmol/L (136-145)
[2023-11-25] MEDS: Pantoprazole Sodium 40 MG Tablet PO (08:27)
[2023-11-25] MEDS: APIXABAN 5 MG TABLET PO (08:27)
[2023-11-25 08:49] VITALS: BP 124/91; PULSE 68; RESP 16; TEMP 36.6; O2SAT 95
[2023-11-25] MEDS: Ceftriaxone 1 GM/50 ML BAG IV (09:25)
[2023-11-25] MEDS: Potassium Chloride Oral Tablet 20 MEQ 40 MEQ PO ×2 (10:18→13:01)
--- NOTE | 2023-11-25 10:53 | DCINST_ITS ---
Discharge Instructions Follow Up Care Test Results: Test results from this visit will be discussed in further detail at your follow- up appointment, if applicable. Discharge Plan Admission Admit Date/Time: 11/21/23 12:09 Attending Provider: Sabas Novak Primary Care Provider: Trang Quintero Consulting Providers: Nigel Zavala Instructions Additional Instructions / Restrictions: Advised BMP in 1 week. Discharge Orders/Prescriptions Prescriptions: New potassium chloride 20 mEq Tablet,Er Particles/Crystals 40 meq PO BID 3 Days Qty: 12 0RF pantoprazole 40 mg Tablet,Delayed Release (Dr/Ec) 40 mg PO DAILY 30 Days Qty: 30 0RF L.acidoph,saliva-B.bif-S.therm 175 mg Capsule 1 cap PO BID Qty: 0 0RF Rx Instructions: Wocd-hxm-bidadpk. Take it for 7 days levofloxacin 500 mg tablet 500 mg PO DAILY 7 Days Qty: 7 0RF ferrous sulfate [FeroSul] 325 mg (65 mg iron) tablet 325 mg PO DAILY 30 Days Qty: 30 2RF ascorbic acid (vitamin C) 500 mg tablet 500 mg PO BID Qty: 60 2RF Continued Eliquis 5 mg tablet 5 mg PO BID Qty: 60 5RF (DME) Aquacel Extra 4 X 5 bandage See Rx Instructions .Route Qty: 10 2RF Rx Instructions: As directed (DME) hydrocolloid dressing [Comfeel Plus Clear Dressing] 6 X 6 bandage See Rx Instructions .Route Qty: 5 4RF Rx Instructions: As directed acetaminophen 500 MG tablet 500 - 1,000 mg PO Q6H PRN (Reason: Mild Pain (1-3/10)) melatonin 3 mg tablet 3 mg PO QHS docusate sodium 100 mg capsule 100 mg PO BID Patient Comments: Pt says she takes them at 8am and 8pm polyethylene glycol 3350 [Powderlax] 17 gram/dose powder 17 g PO BID clopidogrel [Plavix] 75 mg tablet 75 mg PO DAILY Qty: 30 11RF tirzepatide 2.5 mg/0.5 mL pen injector 2.5 mg subcut MO ondansetron 4 mg tablet,disintegrating 8 mg PO Q8H PRN (Reason: Nausea) oxycodone 10 mg tablet 10 mg PO Q4H PRN (Reason: severe pain) Referrals / Follow Up: Trang Quintero MD [Primary Care Provider] - Within 1 Week Nigel Zavala MD [Med Staff - Active Staff] - Within 2 Weeks Disposition Disposition (needs filled in before D/C Order can be placed): Home, Self Care
[2023-11-25 11:22] VITALS: BP 128/88; PULSE 71; RESP 16; TEMP 36.6; O2SAT 93
--- NOTE | 2023-11-25 12:38 | DS.PCM_ITS ---
Providers Date of Admission: 11/21/23 Date of Discharge: 11/25/23 Primary Care Physician: Dr. Trang Quintero MD Consultations 11/21/23 13:31 Consult: Urology Routine Consulting Provider: Nigel Zavala Reason for Consult: left ruputred cyst and mild hydronephrosis EMERGENT Consult: No MD Notified: Yes Date Notified: 11/21/23 Time Notified: 12:43 Method of Notification: ED Physician Initiated Reason For Visit: LEFT RENAL PAIN, CYST RUPTURE Diagnosis Discharge Diagnosis (1) Acute left flank pain: Status: Acute Code(s): R10.9 - Unspecified abdominal pain Plan This 33-year-old female with multiple comorbidities came to ER with left flank pain. 1. Left flank pain probably from left kidney cyst rupture complicated with left perinephric stranding and mild left hydronephrosis: Patient is being admitted on [facility] floor. UA shows WBC 25?50 cells, LE 500 but negative nitrite, squamous cells 10-25 cells, 1+ bacteria. CT scan showing left perinephric stranding probably inflammation from pyelonephritis with interval decrease in size of left kidney cyst 2.0 x 1.3 x 1.9 cm history of ruptured renal cyst. Urologist is consulted. Pain control with Tylenol and Dilaudid. IV fluid normal saline. Urine culture is ordered. 11/21: Prelim urine culture shows GNR lactose color depositing machine tender. Continue IV antibiotic. Patient was evaluated by the urologist. Plan for cystoscopy tomorrow, retrograde ureteroscopy and attempt to place a stent left side and drain the infection. 11/22: Patient had cystoscopy with left retrograde pyelogram and ureteric stent placement. From the operative note it seems contrast filling the collecting system was abnormal with fistulizing tract in the upper part going to a pocket which was aspirated, purulent in nature. Stent was placed. Leukocytosis resolved. Urine culture growing prelim Klebsiella pneumoniae [id number] sensitive to ceftriaxone. 11/23: Ureteroscopic urine culture shows GNR [id number] colonies. Follow full culture and send depending. Anticipate fluid culture tomorrow therefore discharged tomorrow. : Ureteroscopic urine culture shows GNR lactose color depositing machine tender 2 organisms each of 11,000-25,000 colonies below pathology cream but sample was found ureteroscopic therefore decided to treat for 1 more week of levofloxacin. Earlier 11/20 urine culture shows Klebsiella pneumoniae ESBL -80,000?100,000 colonies pansensitive. Patient already on oxycodone at home. Advised to follow-up urine culture with PCP. 2. Recently had cholecystectomy with CHRISTOS drain: About 10 days ago patient was supposed to CHRISTOS drain removed but at the same time she got left flank pain and was admitted for 1 week in [facility] before this second episode as mentioned above. Chronic severe anemia: Hemoglobin 8.4/27%. Decreased to 7.80 does not bleed with acute anemia. Platelet count normal. Prescription given for ferrous sulfate and vitamin C. 3. 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 Patient denies history of diabetes mellitus But has metabolic syndrome. Glucose 117. A1c on 10/29/2023 5.2%. 4. Right lower extremity DVT: On Eliquis continued 5. WANDA on CKD stage II: Baseline BUNs/creatinine 16/1.07. Patient admitted with UA/creatinine 14/1.39. Continue IV fluid. 11/24: WANDA resolved. BUNs/creatinine 50/1.06 on 11/24 on baseline. 6. Other multiple comorbidities include goiter, history of chronic anemia and morbid obesity: BMI 38.7 kg/m? Living will/advanced directive/end of life care: Patient does not have living will or advanced directive. I talked to her mother near the bedside. After discussion of benefits/risks procedures involved with full code, DNR CC arrest and DNR CC, the patient opted for full code. Patient does want artificial life support including intubation, tube feed, ventilator and/chest compression, central venous catheter, vasopressor and DC shock if needed Discharge medication reconciliation done. Discharge follow-up instructions completed. Discharge process discussed with the patient and all questions were answered to patient's satisfaction. Follow with PCP in 1 to 2 weeks Total time spent, exact 35 minutes on discharge meds reconciliation, examination, coordination of care with nurses and ancillary staff, review of imaging and blood test and discussion with the patient on follow-up instructions. Microbiology Past 72 Hours 11/23/23 Unknown Urine, Cystoscopy Urine Culture - Preliminary Gram negative maria c 11/21/23 09:09 Urine, Clean Catch Urine Culture - Final Klebsiella pneumoniae sp pneum Laboratory Results 11/24/23 07:33: WBC 5.5, RBC 2.86 L, Hgb 8.2 L, Hct 27.0 L, MCV 94.4, MCH 28.7, MCHC 30.4 L, RDW Std Deviation 50.5 H, RDW Coeff of Deyvi 14.6, Plt Count , Immature Gran % (Auto) 0.500, Neut % (Auto) 71.7 H, Lymph % (Auto) 20.3, Cameron % (Auto) 7.1, Eos % (Auto) 0.2, Baso % (Auto) 0.2, Absolute Neuts (auto) 4.0, Absolute Lymphs (auto) 1.12, Nucleated RBC % 0, Differential Comment SCANNED, Platelet Estimate ADEQUATE, Sodium 137, Potassium 3.8, Chloride 112 H, Carbon Dioxide 20.0 L, Anion Gap 5, BUN 12, Creatinine 1.13 H, Estim Creat Clear Calc 83.98, Est GFR (MDRD) Af Amer 70, Est GFR (MDRD) Non-Af 58 L, BUN/Creatinine Ratio 10.6, Glucose 132 H, Calcium 8.9 Clinical Impression(s) from Imaging Studies Abdomen/Pelvis CT 11/21/23 08:27 IMPRESSION: Left perinephric stranding associated with interval decrease in size of a cystic focus arising from the left kidney measuring 2.0 x 1.3 x 1.9 cm suggestive of a ruptured renal cyst, cannot entirely exclude an abscess. New mild left-sided hydronephrosis. Status post cholecystectomy. Medications at Discharge Home Medications acetaminophen 500 mg tablet 500 - 1,000 mg PO Q6H PRN Mild Pain (1-3/10) 10/14/16 apixaban 5 mg tablet (Eliquis) 5 mg PO BID #60 tabs 07/14/23 docusate sodium 100 mg capsule 100 mg PO BID constipation 07/25/23 melatonin 3 mg tablet 3 mg PO QHS insomni 07/25/23 polyethylene glycol 3350 17 gram/dose oral powder (Powderlax) 17 g PO BID constipation 07/25/23 clopidogrel 75 mg tablet (Plavix) 75 mg PO DAILY #30 tabs 07/27/23 hydrocolloid dressing 4 X 5 (Aquacel Extra) #10 ea 08/03/23 hydrocolloid dressing 6 X 6 (Comfeel Plus Clear Dressing) #5 ea 08/03/23 ondansetron 4 mg disintegrating tablet 8 mg PO Q8H PRN Nausea 10/28/23 tirzepatide 2.5 mg/0.5 mL subcutaneous pen injector 2.5 mg subcut MO 10/28/23 oxycodone 10 mg tablet 10 mg PO Q4H PRN severe pain 11/21/23 L.acidophil,salivari-Bifido bifidum-Strep thermoph 175 mg capsule 1 cap PO BID #0 caps 11/25/23 ascorbic acid (vitamin C) 500 mg tablet 500 mg PO BID #60 tabs 11/25/23 ferrous sulfate 325 mg (65 mg iron) tablet (FeroSul) 325 mg PO DAILY 30 days #30 tabs 11/25/23 levofloxacin 500 mg tablet 500 mg PO DAILY 1 week #7 tabs 11/25/23 pantoprazole 40 mg tablet,delayed release 40 mg PO DAILY 30 days #30 tabs 11/25/23 potassium chloride 20 mEq tablet,extended release(part/cryst) 40 meq (2 x 20 mEq) PO BID 3 days #12 tabs 11/25/23 Physical Exam Narrative Seen and examined. Left flank pain is controlled on oxycodone. Patient did not had any fever or chills. Patient had cystoscopy and left ureteroscopy. Urine culture growing 2 organisms both lactose color depositing machine tender Physical exam General: Alert, Oriented x3, Cooperative, obesity grade 2 BMI 38.7 kg/m?. HEENT: Atraumatic, PERRLA, EOMI, Normocephalic Oral: Oral mucosa moist. No Gingival or Mucosal Lesions/ Ulcerations Neck: Supple, No JVD, Negative Carotid Bruits Chest wall/Lungs: Air entry diminished in bilateral lung bases. No crepitation/rhonchi Cardiovascular: Regular rate, Regular Rhythm, Normal S1, Normal S2, No M/G/R Abdomen: Colostomy present. CHRISTOS drain clear, mainly serous fluid. No RUQ tenderness. Bowel Sounds sluggish. Soft. Nondistended : Left renal angle tenderness Still present. No dysuria. No suprapubic tenderness. Extremities: No edema, Capillary Refill Less than 3 Seconds Skin: No rashes, No breakdown Musculoskeletal: No Tenderness to Palpation of Joints or Extremities Neurological: Cranial nerves II-XII grossly intact, DTR 2+/4. No acute focal neurological deficit. Psych/Mental Status: Flat affect. Weight / BMI Weight Weight: 233 lb 7.512 oz Body Mass Index (BMI) 38.9 ABG / Lab / Microbiology Data 11/25/23 03:50 11/25/23 03:50 Laboratory: Laboratory Results - last 24 hr 11/25/23 03:50: WBC 4.7, RBC 2.67 L, Hgb 7.8 L, Hct 25.1 L, MCV 94.0, MCH 29.2, MCHC 31.1 L, RDW Std Deviation 50.4 H, RDW Coeff of Deyvi 14.7 H, Plt Count 229, MPV 9.7, Immature Gran % (Auto) 0.900, Neut % (Auto) 48.3, Lymph % (Auto) 43.3 H , Cameron % (Auto) 5.4, Eos % (Auto) 1.5, Baso % (Auto) 0.6, Absolute Neuts (auto) 2.3, Absolute Lymphs (auto) 2.02, Nucleated RBC % 0, Sodium 142, Potassium 3.2 L , Chloride 114 H, Carbon Dioxide 22.0, Anion Gap 6, BUN 15, Creatinine 1.06 H, Estim Creat Clear Calc 89.53, Est GFR (MDRD) Af Amer 76, Est GFR (MDRD) Non-Af 63, BUN/Creatinine Ratio 14.2, Glucose 96, Calcium 8.4 L Microbiology: Microbiology 11/23/23 Unknown Urine, Cystoscopy Urine Culture - Preliminary GNR lactose color depositing machine tender GNR lactose color depositing machine tender#2 11/21/23 09:09 Urine, Clean Catch Urine Culture - Final Klebsiella pneumoniae sp pneum Meaningful Use Info Meaningful Use Meaningful Use Diagnoses (Choose all that apply): None applicable Ischemic Stroke Statin Dosing Therapy Reference: STATIN DOSE THERAPY REFERENCE: * Patients > 75 years receive moderate or high dose statin therapy. * Patients 75 years or YOUNGER should receive HIGH intensity statin dose unless contraindicated. You will be required to document reason for non-treatment if statin daily dose does not meet guidelines. HIGH DOSE STATIN THERAPY DAILY Atorvastatin > than or = to 40 mg Rosuvastatin > than or = to 20 mg Amlodipine + Atorvastatin > than or = to 2.5/40 mg Ezetimibe + Simvastatin 10/80 mg Simvastatin 80mg Discharge Plan Admission Admit Date/Time: 11/21/23 12:09 Attending Provider: Sabas Novak Primary Care Provider: Trang Quintero Consulting Providers: Nigel Zavala Instructions Additional Instructions / Restrictions: Advised BMP in 1 week. Discharge Orders/Prescriptions Prescriptions: New potassium chloride 20 mEq Tablet,Er Particles/Crystals 40 meq PO BID 3 Days Qty: 12 0RF pantoprazole 40 mg Tablet,Delayed Release (Dr/Ec) 40 mg PO DAILY 30 Days Qty: 30 0RF L.acidoph,saliva-B.bif-S.therm 175 mg Capsule 1 cap PO BID Qty: 0 0RF Rx Instructions: [id number]. Take it for 7 days levofloxacin 500 mg tablet 500 mg PO DAILY 7 Days Qty: 7 0RF ferrous sulfate [FeroSul] 325 mg (65 mg iron) tablet 325 mg PO DAILY 30 Days Qty: 30 2RF ascorbic acid (vitamin C) 500 mg tablet 500 mg PO BID Qty: 60 2RF Continued Eliquis 5 mg tablet 5 mg PO BID Qty: 60 5RF (DME) Aquacel Extra 4 X 5 bandage See Rx Instructions .Route Qty: 10 2RF Rx Instructions: As directed (DME) hydrocolloid dressing [Comfeel Plus Clear Dressing] 6 X 6 bandage See Rx Instructions .Route Qty: 5 4RF Rx Instructions: As directed acetaminophen 500 MG tablet 500 - 1,000 mg PO Q6H PRN (Reason: Mild Pain (1-10)) melatonin 3 mg tablet 3 mg PO QHS docusate sodium 100 mg capsule 100 mg PO BID Patient Comments: Pt says she takes them at 8am and 8pm polyethylene glycol 3350 [Powderlax] 17 gram/dose powder 17 g PO BID clopidogrel [Plavix] 75 mg tablet 75 mg PO DAILY Qty: 30 11RF tirzepatide 2.5 mg/0.5 mL pen injector 2.5 mg subcut MO ondansetron 4 mg tablet,disintegrating 8 mg PO Q8H PRN (Reason: Nausea) oxycodone 10 mg tablet 10 mg PO Q4H PRN (Reason: severe pain) Referrals / Follow Up: Trang Quintero MD [Primary Care Provider] - Within 1 Week Nigel Zavala MD [Med Staff - Active Staff] - Within 2 Weeks Disposition Disposition (needs filled in before D/C Order can be placed): Home, Self Care Charges/Coding Visit Charges Inpatient E&M: 15975 Disch Hosp >30min
--- NOTE | 2023-11-25 12:52 | CASEMGMT ---
RN CM into pt room, pt states she is ready for dc. She denies any homegoing needs. She states she is getting her CHRISTOS drain out in [place] on Tuesday and is indep with the care for it at home.
== END 2023-11-25 13:25 | disposition home or self-care (01) | DRG 463 ==
LOC: ED 11:51 → MS3 12:11
PROVIDERS: Anesthesiology; Urology; Admitting Provider Internal Medicine; Emergency Provider Emergency Medicine; PCP Internal Medicine; Visit Provider Internal Medicine
PROC: 0T778DZ Dilation of Left Ureter with Intraluminal Device, Via Natural or Artificial Opening Endoscopic (ICD-10-PCS; CPT 52332; principal; 2023-11-23 12:55)
DX: N13.6 Pyonephrosis (principal); B96.1 Klebsiella pneumoniae [K. pneumoniae] as the cause of diseases classified elsewhere; E66.01 Morbid (severe) obesity due to excess calories; D64.9 Anemia, unspecified; Z93.3 Colostomy status; N18.2 Chronic kidney disease, stage 2 (mild); E28.2 Polycystic ovarian syndrome; Z68.38 Body mass index [BMI] 38.0-38.9, adult; E88.810 Metabolic syndrome; Z90.49 Acquired absence of other specified parts of digestive tract; Z16.12 Extended spectrum beta lactamase (ESBL) resistance; Z79.01 Long term (current) use of anticoagulants; Z79.02 Long term (current) use of antithrombotics/antiplatelets; Z86.718 Personal history of other venous thrombosis and embolism
CPT/HCPCS: 36415; 74177; 76000; 80048; 80053; 81001; 81025; 83690; 83735; 85025; 85610; 85730; 87077; 87086; 87088; 87186; 99283; Q9967; A4216; C1769; J2405

== ENCOUNTER → 2024-01-11 | Outpatient (CLI) | payer MEDICAID, SELFPAY ==
--- NOTE | 2024-01-11 08:51 | AAVD_ITS ---
Reason For Study: S/P RIGHT EXTERNAL ILIAC VEIN STENT Inferior Vena Cava Proximal inferior vena cava measures 1.75 cm. in the cross-sectional axis. Mid inferior vena cava measures 2.10 cm. in the cross-sectional axis. Distal inferior vena cava measures 1.73 cm. in the cross-sectional axis. Proximal inferior vena cava measures 0.76 cm. in the longitudinal axis. Mid inferior vena cava measures 0.78 cm. in the longitudinal axis. Distal inferior vena cava measures 1.11 cm. in the longitudinal axis. The inferior vena cava has spontaneous, phasic flow throughout. Left Common Iliac Vein Left common iliac vein measures 0.86 cm. in the cross-sectional axis. Left common iliac vein measures 0.52 cm. in the longitudinal axis. The left common iliac vein has spontaneous, phasic flow throughout. Right Common Iliac Vein Right common iliac vein measures 0.95 cm. in the cross-sectional axis. Right common iliac vein measures 0.54 cm. in the longitudinal axis. The right common iliac vein has spontaneous, phasic flow throughout. Procedure Aorta IVC Iliac vasculature or bypass grafts [id number]. The exam was of adequate technical quality. Exam performed in department. VL/Abd Aortic/IVC Duplex scan Interpretation Summary Patent inferior vena cava and bilateral iliac veins with normal venous flow pat tern. Ordering Physician: Emilio Davis Referring Physician: Trang Quintero M.D. Performed By: Leslie Reddy RVT and Student
== END | disposition home or self-care (01) ==
LOC: CVS 08:49
PROVIDERS: PCP Internal Medicine; Visit Provider Surgery Trauma Surgery
DX: I82.401 Acute embolism and thrombosis of unspecified deep veins of right lower extremity (principal); Z96.89 Presence of other specified functional implants
CPT/HCPCS: 93978

== ENCOUNTER → 2024-02-24 | Outpatient (CLI) | payer MEDICAID, SELFPAY ==
--- NOTE | 2024-02-24 06:46 | CT_ITS ---
STUDY: CT ABDOMEN AND PELVIS WITH CONTRAST REASON FOR EXAM: Female, 33 years old. abdominal visceral abscess. Colostomy due to diverticulitis. RADIATION DOSAGE (If Supplied By Facility): CTDIvol = ( 18.64 ) mGy, DLP = ( 1405.69 ) mGycm TECHNIQUE: Transaxial images were obtained from the dome of the diaphragm to the symphysis pubis with oral contrast. Oral and amp; IV Readi-CAT and amp; 100mL Isovue-370 was administered. Sagittal and coronal images were reconstructed. Individualized dose optimization techniques were used for this CT. COMPARISON: Comparison is made with prior study dated November 21, 2023. FINDINGS: Calcified granuloma in the posterolateral aspect of the left lower lobe. The visualized portions of the heart are within normal limits. Normal liver. The patient is status post cholecystectomy by history although there is a structure in the gallbladder fossa resembling a gallbladder. Clinical correlation recommended. Normal spleen. Normal pancreas. Normal bilateral adrenal glands. Normal right kidney. Normal left kidney. Normal visualized stomach. Normal small intestine. A colostomy seen in the anterior left lower quadrant. The appendix is visualized and appears normal. Normal abdominal aorta. A vascular stent is seen in the right external iliac artery. Normal inferior vena cava. Normal retroperitoneum. Normal urinary bladder. IUD is seen within the uterus. Postoperative changes are seen in the lower anterior abdominal. Normal osseous structures. CT/Abdomen/Pelvis WITH Contrast IMPRESSION: Status post cholecystectomy although there is a well-circumscribed fluid collection the gallbladder fossa most likely center to prior surgical intervention. A colostomy seen in the anterior left lower quadrant. Electronically Signed: Vivek Gilmore MD at 13:07 EDT ,
== END | disposition home or self-care (01) ==
LOC: CT 06:44
PROVIDERS: PCP Internal Medicine; Referring Provider Internal Medicine; Visit Provider Internal Medicine
DX: K65.1 Peritoneal abscess (principal); N15.1 Renal and perinephric abscess
CPT/HCPCS: 74177; Q9967

== ENCOUNTER → 2024-07-23 | Outpatient (CLI) | payer MEDICAID, SELFPAY ==
--- NOTE | 2024-07-23 09:00 | AAVD_ITS ---
Reason For Study: S/P Rt EIV Stent Inferior Vena Cava Proximal inferior vena cava measures 1.23 x 1.78 cm. in the cross-sectional axis. Proximal inferior vena cava measures 1.27 cm. in the longitudinal axis. Mid inferior vena cava measures 1.73 x 2.36 cm. in the cross-sectional axis. Mid inferior vena cava measures 1.54 cm. in the longitudinal axis. Distal inferior vena cava measures 1.63x 2.16 cm. in the cross-sectional axis. Distal inferior vena cava measures 1.68 cm. in the longitudinal axis. The inferior vena cava has spontaneous, phasic flow throughout. Left Common Iliac Vein Left common iliac vein measures 1.24 x 1.46 cm. in the cross-sectional axis. Left common iliac vein measures 1.29 cm. in the longitudinal axis. The left common iliac vein has spontaneous, phasic flow throughout. Right Common Iliac Vein Right common iliac vein measures 1.12 x 1.21 cm. in the cross-sectional axis. Right common iliac vein measures 1.10 cm. in the longitudinal axis. The right common iliac vein has spontaneous, phasic flow throughout. RT EIV appears patent with flow noted in color and pulsed wave doppler.Stent noted at prox EIV. Procedure Aorta IVC Iliac vasculature or bypass grafts [id number]. The exam was diagnostic. Exam performed in department. VL/Abd Aortic/IVC Duplex scan Interpretation Summary Inferior vena cava and left iliac vein patent with normal venous flow pattern. Right iliac vein stent patent with normal venous flow pattern Ordering Physician: Kaitlyn Branham Referring Physician: Trang Quintero M.D. Performed By: Miguel Angel Crystal RVT
== END | disposition home or self-care (01) ==
LOC: CVS 08:55
PROVIDERS: PCP Internal Medicine; Referring Provider Physician Assistant; Visit Provider Physician Assistant
DX: Z48.812 Encounter for surgical aftercare following surgery on the circulatory system (principal); I82.411 Acute embolism and thrombosis of right femoral vein
CPT/HCPCS: 93978

== ENCOUNTER → 2024-09-17 | Outpatient (CLI) | payer MEDICAID, SELFPAY ==
--- NOTE | 2024-09-17 08:52 | VDLE_ITS ---
Reason For Study Reason For Study: HXDVT / Swelling RIGHT LEFT CFV is compressible, phasic, and INCOMPETENT for CFV is compressible, spontaneous, phasic, competent, greater than 1.0 second. and demonstrates normal augmentation. Femoral vein appears NONCOMPRESSIBLE at mid and distal with intraluminal echoes. Diminished flow visualized with color doppler, unable to visualize with pulsed wave doppler. Popliteal Vein appears PARTIALLY COMPRESSIBLE with intraluminal echoes. Flow appears spontaneous, phasic and competent with normal augmentation. T/P Trunk appears PARTIALLY COMPRESSIBLE with intraluminal echoes. PTV is compressible. RT PerV is compressible. SFJ is INCOMPETENT and measures 0.54 cm. GSV proximal thigh measures 0.57 x 0.65 cm. GSV at knee measures 0.64 x 0.70 cm. GSV is competent throughout. ASV proximal thigh is INCOMPETENT for greater than 0.5 seconds and measures 0.32 x 0.29 cm. SSV at junction is INCOMPETENT for greater than 0.5 seconds and measures 0.62 cm. SSV mid calf is competent and measures 0.27 x 0.28 cm. ASV proximal calf is INCOMPETENT for greater than 0.5 seconds and measures 0.42 x 0.57 cm. ASV Prox thigh appears to be branch of SFJ and feeds anterior thigh VV ASV Prox calf appears to be branch of SSV and feeds posterior calf VV. Procedure This is a venous duplex using B-mode, color flow and spectral Doppler. Exam performed in department. The exam was diagnostic. VL/Venous Duplex US, Unilateral Interpretation Summary Chronic deep vein thrombosis noted in right femoral vein, popliteal vein, tibio peroneal trunk vein. Positive for reflux in the right common femoral vein, saphenofemoral junction, accessory saphenous vein in thigh, accessory saphenous vein in calf, and small saphenous vein. Ordering Physician: Kaitlyn Branham Referring Physician: Kaitlyn Branham Performed By: Marah, Miguel Angel, RVT
== END | disposition home or self-care (01) ==
LOC: CVS 08:48
PROVIDERS: PCP Internal Medicine; Referring Provider Physician Assistant; Visit Provider Physician Assistant
DX: I87.1 Compression of vein (principal); I87.2 Venous insufficiency (chronic) (peripheral); Z86.718 Personal history of other venous thrombosis and embolism
CPT/HCPCS: 93971

== ENCOUNTER → 2024-12-21 | Outpatient (CLI) | payer MEDICAID, SELFPAY ==
--- NOTE | 2024-12-21 08:51 | VDLE_ITS ---
Reason For Study Reason For Study: RLE Swelling RIGHT LEFT GSV is normal. FV is compressible, spontaneous, phasic, competent CFV is compressible, spontaneous, phasic, competent and demonstrates normal augmentation. and demonstrates normal augmentation. FV at prox is compressible. Mid and Distal are difficult to visualize with spontaneous and phasic flow. Normal augmentation and venous competency are noted at distal FV. Popliteal Vein appears PARTIALLY COMPRESSIBLE with intraluminal echoes. Flow appears spontaneous, phasic and competent with normal augmentation. T/P Trunk appears PARTIALLY COMPRESSIBLE with intraluminal echoes. PTV is compressible. RT PerV is compressible. Procedure This is a venous duplex using B-mode, color flow and spectral Doppler. Exam performed in department. The study was technically difficult. VL/Venous Duplex US, Unilateral Interpretation Summary Chronic deep vein thrombosis noted in the popliteal vein, tibioperoneal trunk v ein. Ordering Physician: Kaitlyn Branham Referring Physician: Kaitlyn Branham Performed By: Miguel Angel Crystal RVT
--- NOTE | 2024-12-21 08:51 | AAVD_ITS ---
Reason For Study Reason For Study: S/P Rt Iliac V Stent Inferior Vena Cava Proximal inferior vena cava measures 1.36 x 1.54 cm. in the cross-sectional axis. Proximal inferior vena cava measures 1.46 cm. in the longitudinal axis. Mid inferior vena cava measures 1.57 x 1.79 cm. in the cross-sectional axis. Mid inferior vena cava measures 1.76 cm. in the longitudinal axis. Unable to acquire Distal IVC measurement in transverse angle. Distal inferior vena cava measures 1.27 cm. in the longitudinal axis. The inferior vena cava has spontaneous, phasic flow throughout. Left Common Iliac Vein Left common iliac vein measures 0.78 x 0.84 cm. in the cross-sectional axis. Left common iliac vein measures 1.03 cm. in the longitudinal axis. The left common iliac vein has spontaneous, phasic flow throughout. Right Common Iliac Vein Right common iliac vein measures 0.87 x 0.91 cm. in the cross-sectional axis. Right common iliac vein measures 0.92 cm. in the longitudinal axis. The right common iliac vein has spontaneous, phasic flow throughout. Stent noted at EIV. Procedure Aorta IVC Iliac vasculature or bypass grafts [id number]. The exam was of fair technical quality due to Bowel Gas. Exam performed in department. VL/Abd Aortic/IVC Duplex scan Interpretation Summary Inferior vena cava and left iliac vein patent with normal venous flow pattern. Right iliac vein stent patent with normal venous flow pattern. Ordering Physician: Kaitlyn Branham Referring Physician: Trang Quintero M.D. Performed By: Miguel Angel Crystal RVT
== END | disposition home or self-care (01) ==
LOC: CVS 08:48
PROVIDERS: PCP Internal Medicine; Referring Provider Physician Assistant; Visit Provider Physician Assistant
DX: Z86.718 Personal history of other venous thrombosis and embolism (principal); I87.1 Compression of vein; I87.2 Venous insufficiency (chronic) (peripheral)
CPT/HCPCS: 93971; 93978